=== PATIENT | male | born 1955 | race Two or more races ===

== ENCOUNTER 2020-10-05 08:06 | Outpatient (REF) | payer MEDICARE, SELFPAY ==
[2020-10-05 09:28] LABS: MANUAL DIFF FLAG NO
[2020-10-05 09:30] LABS: Basophils Percent Auto 0.5 % (0-2); Eosinophils Absolute Auto 0.2 X10*3/uL (0.0-0.4); Eosinophils Percent Auto 2.8 % (0-4); Hemoglobin 15.6 g/dl (14.0-18.0); Imm Gran Abs Auto 0.01 X10*3/uL (0.00-0.03); Imm Gran Pct Auto 0.2 % (0.0-0.4); Lymphocytes Absolute Auto 1.9 X10*3/uL (1.2-4.9); Lymphocytes Percent Auto 29.6 % (20-40); Mean Corpuscular HGB Conc 32.5 g/dl (31.0-36.0); Mean Corpuscular Hemoglobin 26.5 pg (27.0-33.0); Mean Corpuscular Volume 81.6 fL (80-98); Mean Platelet Volume 9.7 fL (9.4-12.4); Monocytes Absolute Auto 0.5 X10*3/uL (0.1-1.2); Monocytes Percent Auto 6.9 % (2-11); Neutrophils Absolute Auto 3.9 X10*3/uL (2.0-8.3); Platelet Count 194 X10*3/uL (160-400); Red Blood Count 5.88 X10*6/uL (4.60-5.80); Red Cell Distribution Width 13.4 % (11.0-16.0); White Blood Count 6.5 X10*3/uL (4.8-10.8)
[2020-10-05 09:47] LABS: Glucose Urine UA NEG (NEG); Leukocyte Esterase Urine NEG (NEG); Nitrite Urine NEG (NEG); PH 6.5 (5.0-8.0); Specific Gravity - Urine <= 1.005 (1.005-1.025); Urine Blood NEG (NEG); Urine Ketones NEG (NEG); Urine Protein 1+ MG/DL (NEG-TRACE)
[2020-10-05 09:54] LABS: RBC Urine 0 /HPF (0); WBC Urine 0 /HPF (0-4)
[2020-10-05 09:57] LABS: Alanine Aminotransferase 30 U/L (0-40); Albumin Level 4.2 g/dL (3.5-5.0); Alkaline Phosphatase 49 U/L (39-117); Anion Gap 11 (12-20); Aspartate Amino Transferase 24 U/L (5-37); Bilirubin Total 1.2 mg/dL (0.0-1.0); Blood Urea Nitrogen 18 mg/dL (9-16); Calcium 8.9 mg/dL (8.4-10.2); Carbon Dioxide 29 mmol/L (22-29); Chloride 104 mmol/L (96-108); Cholesterol 143 mg/dL; Estimated Glomerular Filt Rate 53; Glucose Fasting 103 mg/dL (60-99); HDL Cholesterol 45 mg/dL; LDL Cholesterol Calculated 79 mg/dl; Potassium 4.8 mmol/l (3.3-5.1); Sodium 139 mmol/L (135-145); Total Protein 6.8 g/dL (6.5-8.0); Triglycerides 99 mg/dL
[2020-10-05 09:59] LABS: Appearance Urine CLEAR; Color Urine YELLOW
[2020-10-05 10:13] LABS: Uric Acid 7.8 mg/dL (3.4-7.0)
[2020-10-05 10:18] LABS: TSH reflex Free T4 2.36 mIU/mL (0.32-4.0)
[2020-10-05 10:58] LABS: Creatinine Urine 27.08 mg/dL; Microalbum/Creatinine Ratio Ur 1111.5 ug/mg cr
== END 2020-10-05 08:07 | disposition home or self-care (01) ==
LOC: HO.LAB 08:06
PROVIDERS: PCP Internal Medicine; Visit Provider Internal Medicine
DX: I12.9 Hypertensive chronic kidney disease with stage 1 through stage 4 chronic kidney disease, or unspecified chronic kidney disease (principal); E11.22 Type 2 diabetes mellitus with diabetic chronic kidney disease; N18.2 Chronic kidney disease, stage 2 (mild); E78.00 Pure hypercholesterolemia, unspecified; M10.9 Gout, unspecified; R80.9 Proteinuria, unspecified
CPT/HCPCS: 36415; 80053; 80061; 81001; 82043; 84443; 84550; 85025

== ENCOUNTER 2021-01-03 08:14 | Outpatient (REF) | payer MEDICARE, SELFPAY ==
[2021-01-03 09:14] LABS: MANUAL DIFF FLAG NO
[2021-01-03 09:21] LABS: Basophils Percent Auto 0.6 % (0-2); Eosinophils Absolute Auto 0.2 X10*3/uL (0.0-0.4); Eosinophils Percent Auto 2.6 % (0-4); Hematocrit 51.2 % (42-52); Hemoglobin 16.4 g/dl (14.0-18.0); Imm Gran Abs Auto 0.01 X10*3/uL (0.00-0.03); Imm Gran Pct Auto 0.2 % (0.0-0.4); Lymphocytes Percent Auto 30.4 % (20-40); Mean Corpuscular Hemoglobin 26.2 pg (27.0-33.0); Mean Corpuscular Volume 81.8 fL (80-98); Mean Platelet Volume 9.8 fL (9.4-12.4); Monocytes Absolute Auto 0.4 X10*3/uL (0.1-1.2); Monocytes Percent Auto 5.3 % (2-11); Neutrophils Percent Auto 60.9 % (45-73); Platelet Count 210 X10*3/uL (160-400); Red Blood Count 6.26 X10*6/uL (4.60-5.80); Red Cell Distribution Width 13.2 % (11.0-16.0); White Blood Count 6.6 X10*3/uL (4.8-10.8)
[2021-01-03 09:36] LABS: Glucose Urine UA NEG (NEG); Leukocyte Esterase Urine NEG (NEG); Nitrite Urine NEG (NEG); Specific Gravity - Urine <= 1.005 (1.005-1.025); Urine Blood NEG (NEG); Urine Ketones NEG (NEG); Urine Protein 2+ MG/DL (NEG-TRACE)
[2021-01-03 09:39] LABS: Appearance Urine CLEAR; Color Urine STRAW
[2021-01-03 09:52] LABS: RBC Urine 0 /HPF (0); WBC Urine 0 /HPF (0-4)
[2021-01-03 09:57] LABS: Alanine Aminotransferase 31 U/L (0-40); Albumin Level 4.3 g/dL (3.5-5.0); Alkaline Phosphatase 58 U/L (39-117); Anion Gap 13 (12-20); Aspartate Amino Transferase 24 U/L (5-37); Bilirubin Total 0.9 mg/dL (0.0-1.0); Blood Urea Nitrogen 26 mg/dL (9-16); Calcium 9.4 mg/dL (8.4-10.2); Carbon Dioxide 28 mmol/L (22-29); Chloride 102 mmol/L (96-108); Cholesterol 168 mg/dL; Estimated Glomerular Filt Rate 44; Glucose Fasting 132 mg/dL (60-99); HDL Cholesterol 47 mg/dL; LDL Cholesterol Calculated 96 mg/dl; Potassium 4.8 mmol/L (3.3-5.1); Sodium 138 mmol/L (135-145); Total Protein 7.1 g/dL (6.5-8.0); Triglycerides 126 mg/dL; Uric Acid 5.8 mg/dL (3.4-7.0)
[2021-01-03 10:19] LABS: TSH reflex Free T4 2.15 uIU/mL (0.32-4.0); Vitamin D 25-OH Total 35.1 ng/mL (>30)
[2021-01-03 10:29] LABS: Creatinine Urine 38.66 mg/dL
[2021-01-03 10:44] LABS: Estimated Average Glucose 137 mg/dL; Hemoglobin A1c % 6.4 %
[2021-01-03 10:58] LABS: Microalbum/Creatinine Ratio Ur 1223.4 ug/mg cr
== END 2021-01-03 08:15 | disposition home or self-care (01) ==
LOC: HO.LAB 08:14
PROVIDERS: PCP Internal Medicine; Visit Provider Internal Medicine
DX: E11.22 Type 2 diabetes mellitus with diabetic chronic kidney disease (principal); I12.9 Hypertensive chronic kidney disease with stage 1 through stage 4 chronic kidney disease, or unspecified chronic kidney disease; N18.2 Chronic kidney disease, stage 2 (mild); R80.9 Proteinuria, unspecified; E78.00 Pure hypercholesterolemia, unspecified; M10.9 Gout, unspecified; E55.9 Vitamin D deficiency, unspecified
CPT/HCPCS: 36415; 80053; 80061; 81001; 82043; 82306; 83036; 84443; 84550; 85025

== ENCOUNTER 2021-02-14 07:58 | Outpatient (REF) | payer MEDICARE, SELFPAY ==
[2021-02-14 09:03] LABS: Alanine Aminotransferase 36 U/L (0-40); Albumin Level 4.2 g/dL (3.5-5.0); Alkaline Phosphatase 54 U/L (39-117); Anion Gap 14 (12-20); Aspartate Amino Transferase 29 U/L (5-37); Bilirubin Total 0.7 mg/dL (0.0-1.0); Blood Urea Nitrogen 29 mg/dL (9-16); Calcium 9.5 mg/dL (8.4-10.2); Carbon Dioxide 27 mmol/L (22-29); Chloride 100 mmol/L (96-108); Estimated Glomerular Filt Rate 40; Glucose Random 161 mg/dL (60-115); Potassium 4.4 mmol/L (3.3-5.1); Sodium 137 mmol/L (135-145); Total Protein 7.2 g/dL (6.5-8.0)
[2021-02-14 09:18] LABS: Glucose Urine UA NEG (NEG); Leukocyte Esterase Urine NEG (NEG); Nitrite Urine NEG (NEG); PH 6.5 (5.0-8.0); Specific Gravity - Urine <= 1.005 (1.005-1.025); Urine Blood NEG (NEG); Urine Ketones NEG (NEG); Urine Protein 1+ MG/DL (NEG-TRACE)
[2021-02-14 09:32] LABS: Appearance Urine CLEAR; Color Urine STRAW
[2021-02-14 11:01] LABS: RBC Urine 0 /HPF (0); WBC Urine 0 /HPF (0-4)
== END 2021-02-14 07:59 | disposition home or self-care (01) ==
LOC: HO.LAB 07:58
PROVIDERS: PCP Internal Medicine; Visit Provider Internal Medicine
DX: I12.9 Hypertensive chronic kidney disease with stage 1 through stage 4 chronic kidney disease, or unspecified chronic kidney disease (principal); E11.22 Type 2 diabetes mellitus with diabetic chronic kidney disease; N18.32 Chronic kidney disease, stage 3b; R80.9 Proteinuria, unspecified
CPT/HCPCS: 36415; 80053; 81001; 81003

== ENCOUNTER 2021-04-05 07:08 | Outpatient (REF) | payer MEDICARE, SELFPAY ==
[2021-04-05 08:10] LABS: MANUAL DIFF FLAG NO
[2021-04-05 08:19] LABS: Basophils Percent Auto 0.5 % (0-2); Eosinophils Absolute Auto 0.2 X10*3/uL (0.0-0.4); Eosinophils Percent Auto 3.4 % (0-4); Hematocrit 50.2 % (42-52); Imm Gran Abs Auto 0.01 X10*3/uL (0.00-0.03); Imm Gran Pct Auto 0.2 % (0.0-0.4); Lymphocytes Absolute Auto 1.7 X10*3/uL (1.2-4.9); Mean Corpuscular HGB Conc 31.9 g/dl (31.0-36.0); Mean Corpuscular Hemoglobin 26.1 pg (27.0-33.0); Mean Platelet Volume 9.8 fL (9.4-12.4); Monocytes Absolute Auto 0.4 X10*3/uL (0.1-1.2); Monocytes Percent Auto 5.8 % (2-11); Neutrophils Absolute Auto 3.9 X10*3/uL (2.0-8.3); Neutrophils Percent Auto 62.1 % (45-73); Platelet Count 199 X10*3/uL (160-400); Red Blood Count 6.12 X10*6/uL (4.60-5.80); Red Cell Distribution Width 13.9 % (11.0-16.0); White Blood Count 6.2 X10*3/uL (4.8-10.8)
[2021-04-05 08:24] LABS: Glucose Urine UA NEG (NEG); Leukocyte Esterase Urine NEG (NEG); Nitrite Urine NEG (NEG); Specific Gravity - Urine <= 1.005 (1.005-1.025); Urine Blood NEG (NEG); Urine Ketones NEG (NEG); Urine Protein 2+ MG/DL (NEG-TRACE)
[2021-04-05 08:25] LABS: Appearance Urine CLEAR; Color Urine YELLOW
[2021-04-05 08:26] LABS: Estimated Average Glucose 140 mg/dL; Hemoglobin A1c % 6.5 %
[2021-04-05 08:36] LABS: Mucus Urine TRACE /LPF; RBC Urine 0 /HPF (0); WBC Urine 0-2 /HPF (0-4)
[2021-04-05 08:38] LABS: Alanine Aminotransferase 34 U/L (0-40); Albumin Level 4.1 g/dL (3.5-5.0); Alkaline Phosphatase 54 U/L (39-117); Anion Gap 12 (12-20); Aspartate Amino Transferase 28 U/L (5-37); Bilirubin Total 0.6 mg/dL (0.0-1.0); Blood Urea Nitrogen 23 mg/dL (9-16); Calcium 9.4 mg/dL (8.4-10.2); Carbon Dioxide 28 mmol/L (22-29); Chloride 103 mmol/L (96-108); Cholesterol 142 mg/dL; Estimated Glomerular Filt Rate 46; Glucose Fasting 111 mg/dL (60-99); HDL Cholesterol 48 mg/dL; LDL Cholesterol Calculated 66 mg/dl; Potassium 4.8 mmol/L (3.3-5.1); Sodium 138 mmol/L (135-145); Total Protein 6.8 g/dL (6.5-8.0); Triglycerides 143 mg/dL
[2021-04-05 08:47] LABS: TSH reflex Free T4 2.29 uIU/mL (0.32-4.0)
[2021-04-05 09:22] LABS: Creatinine Urine 65.86 mg/dL
[2021-04-05 09:38] LABS: Microalbum/Creatinine Ratio Ur 833.5 ug/mg cr
== END 2021-04-05 07:09 | disposition home or self-care (01) ==
LOC: HO.LAB 07:08
PROVIDERS: PCP Internal Medicine; Visit Provider Internal Medicine
DX: E78.00 Pure hypercholesterolemia, unspecified (principal); M10.00 Idiopathic gout, unspecified site; E11.22 Type 2 diabetes mellitus with diabetic chronic kidney disease; I12.9 Hypertensive chronic kidney disease with stage 1 through stage 4 chronic kidney disease, or unspecified chronic kidney disease; N18.32 Chronic kidney disease, stage 3b; R80.9 Proteinuria, unspecified
CPT/HCPCS: 36415; 80053; 80061; 81001; 81003; 82043; 83036; 84443; 85025

== ENCOUNTER 2021-07-15 08:34 | Outpatient (REF) | payer MEDICARE, SELFPAY ==
[2021-07-15 09:10] LABS: Appearance Urine CLEAR; Color Urine STRAW; Glucose Urine UA NEG (NEG); Leukocyte Esterase Urine NEG (NEG); Nitrite Urine NEG (NEG); PH 6.5 (5.0-8.0); Specific Gravity - Urine <= 1.005 (1.005-1.025); Urine Blood NEG (NEG); Urine Ketones NEG (NEG); Urine Protein TRACE MG/DL (NEG-TRACE)
[2021-07-15 09:27] LABS: Estimated Average Glucose 137 mg/dL; Hemoglobin A1c % 6.4 %
[2021-07-15 09:49] LABS: Uric Acid 6.6 mg/dL (3.4-7.0)
== END 2021-07-15 08:35 | disposition home or self-care (01) ==
LOC: HO.LAB 08:34
PROVIDERS: PCP Internal Medicine; Visit Provider Internal Medicine
DX: I12.9 Hypertensive chronic kidney disease with stage 1 through stage 4 chronic kidney disease, or unspecified chronic kidney disease (principal); N18.32 Chronic kidney disease, stage 3b; E11.22 Type 2 diabetes mellitus with diabetic chronic kidney disease; R80.9 Proteinuria, unspecified; M10.9 Gout, unspecified
CPT/HCPCS: 36415; 81003; 83036; 84550

== ENCOUNTER 2021-10-14 08:25 | Outpatient (REF) | payer MEDICARE, SELFPAY ==
[2021-10-14 08:39] LABS: MANUAL DIFF FLAG NO
[2021-10-14 08:49] LABS: Basophils Percent Auto 0.6 % (0-2); Eosinophils Absolute Auto 0.2 X10*3/uL (0.0-0.4); Eosinophils Percent Auto 2.8 % (0-4); Hematocrit 48.7 % (42.0-52.0); Hemoglobin 16.1 g/dl (14.0-18.0); Imm Gran Abs Auto 0.02 X10*3/uL (0.00-0.03); Imm Gran Pct Auto 0.3 % (0.0-0.4); Lymphocytes Absolute Auto 2.1 X10*3/uL (1.2-4.9); Mean Corpuscular HGB Conc 33.1 g/dl (31.0-36.0); Mean Corpuscular Hemoglobin 27.2 pg (27.0-33.0); Mean Corpuscular Volume 82.1 fL (80.0-98.0); Mean Platelet Volume 10.1 fL (9.4-12.4); Monocytes Absolute Auto 0.4 X10*3/uL (0.1-1.2); Monocytes Percent Auto 6.5 % (2-11); Neutrophils Absolute Auto 3.7 x10*3/uL (2.0-8.3); Neutrophils Percent Auto 57.8 % (45-73); Platelet Count 212 X10*3/uL (160-400); Red Blood Count 5.93 X10*6/uL (4.60-5.80); Red Cell Distribution Width 13.5 % (11.0-16.0); White Blood Count 6.4 X10*3/uL (4.8-10.8)
[2021-10-14 09:28] LABS: Alanine Aminotransferase 36 U/L (0-40); Albumin Level 4.3 g/dL (3.5-5.0); Alkaline Phosphatase 58 U/L (39-117); Anion Gap 11 (12-20); Aspartate Amino Transferase 32 U/L (5-37); Bilirubin Total 1.1 mg/dL (0.0-1.0); Blood Urea Nitrogen 22 mg/dL (9-16); Carbon Dioxide 28 mmol/L (22-29); Chloride 106 mmol/L (96-108); Cholesterol 144 mg/dL; Estimated Glomerular Filt Rate 45; Glucose Random 120 mg/dL (60-115); HDL Cholesterol 47 mg/dL; LDL Cholesterol Calculated 75 mg/dl; Potassium 5.2 mmol/L (3.3-5.1); Sodium 140 mmol/L (135-145); Total Protein 7.2 g/dL (6.5-8.0); Triglycerides 110 mg/dL
[2021-10-14 09:50] LABS: Vitamin D 25-OH Total 32.4 ng/mL (>30)
[2021-10-14 10:18] LABS: Appearance Urine CLEAR; Color Urine STRAW; Glucose Urine UA NEG (NEG); Leukocyte Esterase Urine NEG (NEG); Nitrite Urine NEG (NEG); Specific Gravity - Urine <= 1.005 (1.005-1.025); UACC Culture Trigger NO; Urine Blood NEG (NEG); Urine Ketones NEG (NEG); Urine Protein 1+ MG/DL (NEG-TRACE)
[2021-10-14 10:43] LABS: Creatinine Urine 35.09 mg/dL; Microalbum/Creatinine Ratio Ur 1125.6 ug/mg cr
[2021-10-14 11:08] LABS: RBC Urine 0 /HPF (0); Squamous Epithelial Cell Urine TRACE /LPF; WBC Urine 0 /HPF (0-4)
[2021-10-14 13:59] LABS: Estimated Average Glucose 143 mg/dL; Hemoglobin A1c % 6.6 %
== END 2021-10-14 08:26 | disposition home or self-care (01) ==
LOC: HO.LAB 08:25
PROVIDERS: PCP Internal Medicine; Visit Provider Nurse Practitioner Family
DX: E11.22 Type 2 diabetes mellitus with diabetic chronic kidney disease (principal); I12.9 Hypertensive chronic kidney disease with stage 1 through stage 4 chronic kidney disease, or unspecified chronic kidney disease; N18.2 Chronic kidney disease, stage 2 (mild); N18.32 Chronic kidney disease, stage 3b; R80.9 Proteinuria, unspecified; E78.00 Pure hypercholesterolemia, unspecified; E55.9 Vitamin D deficiency, unspecified
CPT/HCPCS: 36415; 80053; 80061; 81001; 82043; 82306; 83036; 85025

== ENCOUNTER 2022-01-25 07:59 | Outpatient (REF) | payer MEDICARE, SELFPAY ==
[2022-01-25 08:28] LABS: MANUAL DIFF FLAG NO
[2022-01-25 08:42] LABS: Basophils Percent Auto 0.6 % (0-2); Eosinophils Absolute Auto 0.2 X10*3/uL (0.0-0.4); Eosinophils Percent Auto 2.1 % (0-4); Hemoglobin 17.1 g/dl (14.0-18.0); Imm Gran Abs Auto 0.03 X10*3/uL (0.00-0.03); Imm Gran Pct Auto 0.4 % (0.0-0.4); Lymphocytes Percent Auto 27.3 % (20-40); Mean Corpuscular HGB Conc 32.3 g/dl (31.0-36.0); Mean Corpuscular Hemoglobin 26.7 pg (27.0-33.0); Mean Corpuscular Volume 82.8 fL (80.0-98.0); Mean Platelet Volume 9.9 fL (9.4-12.4); Monocytes Absolute Auto 0.5 X10*3/uL (0.1-1.2); Monocytes Percent Auto 6.9 % (2-11); Neutrophils Absolute Auto 4.5 x10*3/uL (2.0-8.3); Neutrophils Percent Auto 62.7 % (45-73); Platelet Count 203 X10*3/uL (160-400); Red Cell Distribution Width 13.6 % (11.0-16.0); White Blood Count 7.1 X10*3/uL (4.8-10.8)
[2022-01-25 08:49] LABS: Appearance Urine CLEAR; Color Urine STRAW; Glucose Urine UA NEG (NEG); Leukocyte Esterase Urine NEG (NEG); Nitrite Urine NEG (NEG); Specific Gravity - Urine <= 1.005 (1.005-1.025); UACC Culture Trigger NO; Urine Blood TRACE (NEG); Urine Ketones NEG (NEG); Urine Protein 2+ MG/DL (NEG-TRACE)
[2022-01-25 08:55] LABS: Estimated Average Glucose 146 mg/dL; Hemoglobin A1c % 6.7 %
[2022-01-25 09:08] LABS: RBC Urine 0-2 /HPF (0); WBC Urine 0 /HPF (0-4)
[2022-01-25 09:37] LABS: Alanine Aminotransferase 38 U/L (0-40); Albumin Level 4.2 g/dL (3.5-5.0); Alkaline Phosphatase 59 U/L (39-117); Anion Gap 13 (12-20); Aspartate Amino Transferase 31 U/L (5-37); Bilirubin Total 1.2 mg/dL (0.0-1.0); Blood Urea Nitrogen 18 mg/dL (9-16); Calcium 9.9 mg/dL (8.4-10.2); Carbon Dioxide 27 mmol/L (22-29); Chloride 101 mmol/L (96-108); Cholesterol 179 mg/dL; Estimated Glomerular Filt Rate 43; Glucose Fasting 149 mg/dL (60-99); HDL Cholesterol 50 mg/dL; LDL Cholesterol Calculated 94 mg/dl; Sodium 136 mmol/L (135-145); Total Protein 7.3 g/dL (6.5-8.0); Triglycerides 177 mg/dL
[2022-01-25 09:40] LABS: TSH reflex Free T4 3.07 uIU/mL (0.32-4.0)
[2022-01-25 09:51] LABS: Creatinine Urine 43.56 mg/dL; Microalbum/Creatinine Ratio Ur 1166.2 ug/mg cr
[2022-01-26 14:32] LABS: Vitamin D 25-OH Total 31.2 ng/mL (>30)
== END 2022-01-25 08:00 | disposition home or self-care (01) ==
LOC: HO.LAB 07:59
PROVIDERS: PCP Internal Medicine; Visit Provider Internal Medicine
DX: I12.9 Hypertensive chronic kidney disease with stage 1 through stage 4 chronic kidney disease, or unspecified chronic kidney disease (principal); N18.32 Chronic kidney disease, stage 3b; E11.22 Type 2 diabetes mellitus with diabetic chronic kidney disease; E78.00 Pure hypercholesterolemia, unspecified; E55.9 Vitamin D deficiency, unspecified
CPT/HCPCS: 36415; 80053; 80061; 81001; 82043; 82306; 83036; 84443; 85025

== ENCOUNTER 2022-04-12 07:11 | Outpatient (REF) | payer MEDICARE, SELFPAY ==
[2022-04-12 07:28] LABS: MANUAL DIFF FLAG NO
[2022-04-12 07:44] LABS: Basophils Percent Auto 0.6 % (0-2); Eosinophils Absolute Auto 0.1 X10*3/uL (0.0-0.4); Eosinophils Percent Auto 1.8 % (0-4); Hematocrit 52.1 % (42.0-52.0); Hemoglobin 16.7 g/dl (14.0-18.0); Imm Gran Abs Auto 0.01 X10*3/uL (0.00-0.03); Imm Gran Pct Auto 0.2 % (0.0-0.4); Lymphocytes Absolute Auto 2.1 X10*3/uL (1.2-4.9); Lymphocytes Percent Auto 31.8 % (20-40); Mean Corpuscular HGB Conc 32.1 g/dl (31.0-36.0); Mean Corpuscular Hemoglobin 26.5 pg (27.0-33.0); Mean Corpuscular Volume 82.6 fL (80.0-98.0); Mean Platelet Volume 9.8 fL (9.4-12.4); Monocytes Absolute Auto 0.5 X10*3/uL (0.1-1.2); Monocytes Percent Auto 6.8 % (2-11); Neutrophils Absolute Auto 3.9 x10*3/uL (2.0-8.3); Neutrophils Percent Auto 58.8 % (45-73); Platelet Count 188 X10*3/uL (160-400); Red Blood Count 6.31 X10*6/uL (4.60-5.80); White Blood Count 6.6 X10*3/uL (4.8-10.8)
[2022-04-12 07:56] LABS: Estimated Average Glucose 146 mg/dL; Hemoglobin A1c % 6.7 %
[2022-04-12 08:09] LABS: Alanine Aminotransferase 31 U/L (0-40); Albumin Level 4.3 g/dL (3.5-5.0); Alkaline Phosphatase 54 U/L (39-117); Anion Gap 13 (12-20); Aspartate Amino Transferase 27 U/L (5-37); Bilirubin Total 0.8 mg/dL (0.0-1.0); Blood Urea Nitrogen 20 mg/dL (9-16); Calcium 9.8 mg/dL (8.4-10.2); Carbon Dioxide 27 mmol/L (22-29); Chloride 104 mmol/L (96-108); Cholesterol 159 mg/dL; Estimated Glomerular Filt Rate 42; Glucose Fasting 121 mg/dL (60-99); HDL Cholesterol 51 mg/dL; LDL Cholesterol Calculated 91 mg/dl; Potassium 5.4 mmol/L (3.3-5.1); Sodium 139 mmol/L (135-145); Total Protein 7.3 g/dL (6.5-8.0); Triglycerides 86 mg/dL
[2022-04-12 08:10] LABS: Appearance Urine CLEAR; Color Urine YELLOW; Glucose Urine UA NEG (NEG); Leukocyte Esterase Urine NEG (NEG); Nitrite Urine NEG (NEG); Specific Gravity - Urine <= 1.005 (1.005-1.025); Urine Blood NEG (NEG); Urine Ketones NEG (NEG); Urine Protein TRACE MG/DL (NEG-TRACE)
[2022-04-12 08:32] LABS: TSH reflex Free T4 3.07 uIU/mL (0.32-4.0); Vitamin D 25-OH Total 32.8 ng/mL (>30)
== END 2022-04-12 07:12 | disposition home or self-care (01) ==
LOC: HO.LAB 07:11
PROVIDERS: PCP Internal Medicine; Visit Provider Internal Medicine
DX: E78.00 Pure hypercholesterolemia, unspecified (principal); E11.9 Type 2 diabetes mellitus without complications; E55.9 Vitamin D deficiency, unspecified; I10 Essential (primary) hypertension
CPT/HCPCS: 36415; 80053; 80061; 81003; 82306; 83036; 84443; 85025

== ENCOUNTER 2022-07-17 07:27 | Outpatient (REF) | payer MEDICARE, SELFPAY ==
[2022-07-17 07:41] LABS: MANUAL DIFF FLAG NO
[2022-07-17 08:21] LABS: Basophils Percent Auto 0.5 % (0-2); Eosinophils Absolute Auto 0.1 X10*3/uL (0.0-0.4); Eosinophils Percent Auto 1.7 % (0-4); Hematocrit 51.2 % (42.0-52.0); Hemoglobin 16.6 g/dl (14.0-18.0); Imm Gran Abs Auto 0.02 X10*3/uL (0.00-0.03); Imm Gran Pct Auto 0.3 % (0.0-0.4); Lymphocytes Absolute Auto 1.7 X10*3/uL (1.2-4.9); Lymphocytes Percent Auto 27.5 % (20-40); Mean Corpuscular HGB Conc 32.4 g/dl (31.0-36.0); Mean Corpuscular Hemoglobin 26.4 pg (27.0-33.0); Mean Corpuscular Volume 81.5 fL (80.0-98.0); Monocytes Absolute Auto 0.4 X10*3/uL (0.1-1.2); Monocytes Percent Auto 5.7 % (2-11); Neutrophils Absolute Auto 4.1 x10*3/uL (2.0-8.3); Neutrophils Percent Auto 64.3 % (45-73); Platelet Count 182 X10*3/uL (160-400); Red Blood Count 6.28 X10*6/uL (4.60-5.80); Red Cell Distribution Width 13.6 % (11.0-16.0); White Blood Count 6.3 X10*3/uL (4.8-10.8)
[2022-07-17 08:23] LABS: Appearance Urine Clear; Color Urine Yellow; Glucose Urine UA Negative (Negative); Leukocyte Esterase Urine Negative (Negative); Nitrite Urine Negative (Negative); PH 5.5 (5.0-9.0); Specific Gravity - Urine <= 1.005 (1.005-1.025); Urine Blood Negative (Negative); Urine Ketones Negative (Negative); Urine Protein 30 (1+) mg/dL (Neg-Trace)
[2022-07-17 08:28] LABS: Bacteria Urine None Seen (None Seen); Hyaline Casts Urine 0-2 /LPF (0-2); RBC Urine 0-2 /HPF (0-2); Squamous Epithelial Cell Urine 0-2 /HPF (0-2); WBC Urine 0-5 /HPF (0-5)
[2022-07-17 08:36] LABS: Estimated Average Glucose 131 mg/dL; Hemoglobin A1c % 6.2 %
[2022-07-17 08:39] LABS: Alanine Aminotransferase 30 U/L (0-40); Alkaline Phosphatase 54 U/L (39-117); Anion Gap 14 (12-20); Aspartate Amino Transferase 26 U/L (5-37); Bilirubin Total 1.2 mg/dL (0.0-1.0); Blood Urea Nitrogen 24 mg/dL (9-16); Calcium 9.4 mg/dL (8.4-10.2); Carbon Dioxide 26 mmol/L (22-29); Chloride 104 mmol/L (96-108); Cholesterol 156 mg/dL; Estimated Glomerular Filt Rate 49; Glucose Fasting 129 mg/dL (60-99); HDL Cholesterol 50 mg/dL; LDL Cholesterol Calculated 82 mg/dl; Potassium 4.5 mmol/L (3.3-5.1); Sodium 139 mmol/L (135-145); Total Protein 6.8 g/dL (6.5-8.0); Triglycerides 120 mg/dL; Uric Acid 5.9 mg/dL (3.4-7.0)
[2022-07-17 09:04] LABS: TSH reflex Free T4 2.24 uIU/mL (0.32-4.0)
[2022-07-17 09:14] LABS: Creatinine Urine 24.34 mg/dL
[2022-07-17 09:39] LABS: Vitamin D 25-OH Total 35.2 ng/mL (>30)
== END 2022-07-17 07:28 | disposition home or self-care (01) ==
LOC: HO.LAB 07:27
PROVIDERS: PCP Internal Medicine; Visit Provider Internal Medicine
DX: M10.9 Gout, unspecified (principal); E11.9 Type 2 diabetes mellitus without complications; E55.9 Vitamin D deficiency, unspecified; E78.00 Pure hypercholesterolemia, unspecified; I10 Essential (primary) hypertension
CPT/HCPCS: 36415; 80053; 80061; 81001; 82043; 82306; 83036; 84443; 84550; 85025

== ENCOUNTER 2022-10-24 07:33 | Outpatient (REF) | payer MEDICARE, SELFPAY ==
[2022-10-24 07:50] LABS: MANUAL DIFF FLAG NO
[2022-10-24 08:16] LABS: Basophils Percent Auto 0.5 % (0-2); Eosinophils Absolute Auto 0.1 X10*3/uL (0.0-0.4); Eosinophils Percent Auto 1.3 % (0-4); Hematocrit 51.2 % (42.0-52.0); Hemoglobin 16.6 g/dl (14.0-18.0); Imm Gran Abs Auto 0.03 X10*3/uL (0.00-0.03); Imm Gran Pct Auto 0.5 % (0.0-0.4); Lymphocytes Absolute Auto 1.4 X10*3/uL (1.2-4.9); Lymphocytes Percent Auto 22.5 % (20-40); Mean Corpuscular HGB Conc 32.4 g/dl (31.0-36.0); Mean Corpuscular Hemoglobin 26.9 pg (27.0-33.0); Mean Platelet Volume 9.9 fL (9.4-12.4); Monocytes Absolute Auto 0.4 X10*3/uL (0.1-1.2); Monocytes Percent Auto 5.8 % (2-11); Neutrophils Absolute Auto 4.2 x10*3/uL (2.0-8.3); Neutrophils Percent Auto 69.4 % (45-73); Platelet Count 181 X10*3/uL (160-400); Red Blood Count 6.17 X10*6/uL (4.60-5.80); Red Cell Distribution Width 13.5 % (11.0-16.0)
[2022-10-24 08:26] LABS: Appearance Urine Clear; Color Urine Yellow; Glucose Urine UA Negative (Negative); Leukocyte Esterase Urine Negative (Negative); Nitrite Urine Negative (Negative); Specific Gravity - Urine <= 1.005 (1.005-1.025); UMIC TRIGGER UACC YES; Urine Blood Negative (Negative); Urine Ketones Negative (Negative); Urine Protein 100 (2+) mg/dL (Neg-Trace)
[2022-10-24 08:26] LABS: Estimated Average Glucose 134 mg/dL; Hemoglobin A1c % 6.3 %
[2022-10-24 08:32] LABS: Bacteria Urine None Seen (None Seen); Hyaline Casts Urine 0-2 /LPF (0-2); RBC Urine 0-2 /HPF (0-2); Squamous Epithelial Cell Urine 0-2 /HPF (0-2); WBC Urine 0-5 /HPF (0-5)
[2022-10-24 08:48] LABS: Alanine Aminotransferase 34 U/L (0-40); Albumin Level 4.2 g/dL (3.5-5.0); Alkaline Phosphatase 55 U/L (39-117); Anion Gap 12 (12-20); Aspartate Amino Transferase 28 U/L (5-37); Blood Urea Nitrogen 20 mg/dL (9-16); Calcium 9.6 mg/dL (8.4-10.2); Carbon Dioxide 27 mmol/L (22-29); Chloride 102 mmol/L (96-108); Cholesterol 162 mg/dL; Estimated Glomerular Filt Rate 43; Glucose Fasting 146 mg/dL (60-99); HDL Cholesterol 52 mg/dL; LDL Cholesterol Calculated 92 mg/dl; Potassium 4.4 mmol/L (3.3-5.1); Sodium 137 mmol/L (135-145); Total Protein 6.9 g/dL (6.5-8.0); Triglycerides 93 mg/dL; Uric Acid 5.7 mg/dL (3.4-7.0)
[2022-10-24 08:56] LABS: Creatinine Urine 41.44 mg/dL
[2022-10-24 09:09] LABS: TSH reflex Free T4 3.06 uIU/mL (0.32-4.0); Vitamin D 25-OH Total 30.5 ng/mL (>30)
[2022-10-24 09:10] LABS: Microalbum/Creatinine Ratio Ur 1467.1 ug/mg cr
== END 2022-10-24 07:34 | disposition home or self-care (01) ==
LOC: HO.LAB 07:33
PROVIDERS: PCP Internal Medicine; Visit Provider Internal Medicine
DX: I10 Essential (primary) hypertension (principal); E55.9 Vitamin D deficiency, unspecified; M10.9 Gout, unspecified; E11.9 Type 2 diabetes mellitus without complications; E78.00 Pure hypercholesterolemia, unspecified
CPT/HCPCS: 36415; 80053; 80061; 81001; 82043; 82306; 83036; 84443; 84550; 85025

== ENCOUNTER 2023-01-26 07:16 | Outpatient (REF) | payer MEDICARE, SELFPAY ==
[2023-01-26 07:36] LABS: MANUAL DIFF FLAG NO
[2023-01-26 07:56] LABS: Basophils Percent Auto 0.5 % (0-2); Eosinophils Absolute Auto 0.1 X10*3/uL (0.0-0.4); Eosinophils Percent Auto 2.3 % (0-4); Hematocrit 48.3 % (42.0-52.0); Hemoglobin 15.8 g/dl (14.0-18.0); Imm Gran Abs Auto 0.02 X10*3/uL (0.00-0.03); Imm Gran Pct Auto 0.3 % (0.0-0.4); Lymphocytes Absolute Auto 1.1 X10*3/uL (1.2-4.9); Lymphocytes Percent Auto 17.6 % (20-40); Mean Corpuscular HGB Conc 32.7 g/dl (31.0-36.0); Mean Corpuscular Volume 82.6 fL (80.0-98.0); Mean Platelet Volume 9.6 fL (9.4-12.4); Monocytes Absolute Auto 0.4 X10*3/uL (0.1-1.2); Neutrophils Absolute Auto 4.5 x10*3/uL (2.0-8.3); Neutrophils Percent Auto 73.3 % (45-73); Platelet Count 171 X10*3/uL (160-400); Red Blood Count 5.85 X10*6/uL (4.60-5.80); Red Cell Distribution Width 13.9 % (11.0-16.0); White Blood Count 6.1 X10*3/uL (4.8-10.8)
[2023-01-26 07:59] LABS: Appearance Urine Clear; Color Urine Yellow; Glucose Urine UA >=1000 mg/dL (Negative); Leukocyte Esterase Urine Negative (Negative); Nitrite Urine Negative (Negative); PH 5.5 (5.0-9.0); UMIC TRIGGER UACC YES; Urine Blood Negative (Negative); Urine Ketones Negative (Negative); Urine Protein 100 (2+) mg/dL (Neg-Trace)
[2023-01-26 08:04] LABS: Bacteria Urine None Seen (None Seen); RBC Urine 0-2 /HPF (0-2); Squamous Epithelial Cell Urine 0-2 /HPF (0-2); WBC Urine 0-5 /HPF (0-5)
[2023-01-26 08:11] LABS: Estimated Average Glucose 134 mg/dL; Hemoglobin A1c % 6.3 %
[2023-01-26 08:22] LABS: Creatinine Urine 99.51 mg/dL; Microalbum/Creatinine Ratio Ur 304.4 ug/mg cr
[2023-01-26 08:30] LABS: Alanine Aminotransferase 30 U/L (0-40); Alkaline Phosphatase 51 U/L (39-117); Anion Gap 12 (12-20); Aspartate Amino Transferase 23 U/L (5-37); Bilirubin Total 0.8 mg/dL (0.0-1.0); Blood Urea Nitrogen 27 mg/dL (9-16); Calcium 9.2 mg/dL (8.4-10.2); Carbon Dioxide 25 mmol/L (22-29); Chloride 107 mmol/L (96-108); Cholesterol 143 mg/dL; Estimated Glomerular Filt Rate 42; Glucose Fasting 155 mg/dL (60-99); HDL Cholesterol 45 mg/dL; LDL Cholesterol Calculated 83 mg/dl; Potassium 4.6 mmol/L (3.3-5.1); Sodium 139 mmol/L (135-145); Total Protein 6.4 g/dL (6.5-8.0); Triglycerides 78 mg/dL
[2023-01-26 08:47] LABS: TSH reflex Free T4 2.97 uIU/mL (0.32-4.0); Vitamin D 25-OH Total 34.3 ng/mL (>30)
== END 2023-01-26 07:17 | disposition home or self-care (01) ==
LOC: HO.LAB 07:16
PROVIDERS: PCP Internal Medicine; Visit Provider Internal Medicine
DX: E11.9 Type 2 diabetes mellitus without complications (principal); E78.00 Pure hypercholesterolemia, unspecified; E55.9 Vitamin D deficiency, unspecified; I10 Essential (primary) hypertension
CPT/HCPCS: 36415; 80053; 80061; 81001; 81003; 82043; 82306; 83036; 84443; 85025

== ENCOUNTER 2023-06-08 07:35 | Outpatient (REF) | payer MEDICARE, SELFPAY ==
[2023-06-08 08:08] LABS: MANUAL DIFF FLAG NO
[2023-06-08 08:18] LABS: Basophils Percent Auto 0.5 % (0-2); Eosinophils Absolute Auto 0.1 X10*3/uL (0.0-0.4); Eosinophils Percent Auto 1.9 % (0-4); Hematocrit 45.6 % (42.0-52.0); Hemoglobin 14.8 g/dl (14.0-18.0); Imm Gran Abs Auto 0.02 X10*3/uL (0.00-0.03); Imm Gran Pct Auto 0.3 % (0.0-0.4); Lymphocytes Absolute Auto 1.2 X10*3/uL (1.2-4.9); Lymphocytes Percent Auto 18.2 % (20-40); Mean Corpuscular HGB Conc 32.5 g/dl (31.0-36.0); Mean Corpuscular Hemoglobin 26.9 pg (27.0-33.0); Mean Corpuscular Volume 82.8 fL (80.0-98.0); Mean Platelet Volume 9.8 fL (9.4-12.4); Monocytes Absolute Auto 0.5 X10*3/uL (0.1-1.2); Monocytes Percent Auto 8.4 % (2-11); Neutrophils Absolute Auto 4.5 x10*3/uL (2.0-8.3); Neutrophils Percent Auto 70.7 % (45-73); Platelet Count 176 X10*3/uL (160-400); Red Blood Count 5.51 X10*6/uL (4.60-5.80); Red Cell Distribution Width 14.1 % (11.0-16.0); White Blood Count 6.3 X10*3/uL (4.8-10.8)
[2023-06-08 08:33] LABS: Estimated Average Glucose 126 mg/dL
[2023-06-08 08:57] LABS: Alanine Aminotransferase 26 U/L (0-40); Albumin Level 3.9 g/dL (3.5-5.0); Alkaline Phosphatase 55 U/L (39-117); Anion Gap 14 (12-20); Aspartate Amino Transferase 26 U/L (5-37); Bilirubin Total 1.2 mg/dL (0.0-1.0); Blood Urea Nitrogen 25 mg/dL (9-16); Calcium 9.5 mg/dL (8.4-10.2); Carbon Dioxide 22 mmol/L (22-29); Chloride 108 mmol/L (96-108); Cholesterol 146 mg/dL; Estimated Glomerular Filt Rate 45; Glucose Fasting 117 mg/dL (60-99); HDL Cholesterol 47 mg/dL; LDL Cholesterol Calculated 83 mg/dl; Sodium 140 mmol/L (135-145); Total Protein 6.6 g/dL (6.5-8.0); Triglycerides 83 mg/dL
[2023-06-08 09:13] LABS: TSH reflex Free T4 1.62 uIU/mL (0.32-4.0); Vitamin D 25-OH Total 39.1 ng/mL (>30)
[2023-06-08 09:50] LABS: Appearance Urine Clear; Color Urine Yellow; Glucose Urine UA >=1000 mg/dL (Negative); Leukocyte Esterase Urine Negative (Negative); Nitrite Urine Negative (Negative); PH 5.5 (5.0-9.0); Specific Gravity - Urine 1.025 (1.005-1.025); UMIC TRIGGER UACC YES; Urine Blood Negative (Negative); Urine Ketones Negative (Negative); Urine Protein 100 (2+) mg/dL (Neg-Trace)
[2023-06-08 09:57] LABS: Bacteria Urine None Seen (None Seen); Hyaline Casts Urine 0-2 /LPF (0-2); RBC Urine 0-2 /HPF (0-2); Squamous Epithelial Cell Urine 0-2 /HPF (0-2); WBC Urine 0-5 /HPF (0-5)
[2023-06-08 22:31] LABS: Microalbum/Creatinine Ratio Ur 266.5 ug/mg cr
== END 2023-06-08 07:36 | disposition home or self-care (01) ==
LOC: HO.LAB 07:35
PROVIDERS: PCP Internal Medicine; Visit Provider Internal Medicine
DX: I10 Essential (primary) hypertension (principal); E11.9 Type 2 diabetes mellitus without complications; M10.9 Gout, unspecified; E55.9 Vitamin D deficiency, unspecified; E78.00 Pure hypercholesterolemia, unspecified
CPT/HCPCS: 36415; 80053; 80061; 81001; 82043; 82306; 83036; 84443; 84550; 85025

== ENCOUNTER 2023-06-15 09:02 | Outpatient (AMB) | payer MEDICARE, SELFPAY ==
[2023-06-15 09:05] VITALS: BP 130/72; PULSE 74; O2SAT 97; BMI 23.3
--- NOTE | 2023-06-15 09:05 | MHC.PC.OV ---
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 Accompanied by: Self / Same As Patient Allergies amlodipine Adverse Reaction (Intermediate, Verified 06/15/23 09:23) edema Medication List - Last Reconciled 06/15/23 by Nikhil Knutson MD allopurinol 100 mg PO DAILY 90 days blood sugar diagnostic 1 strip miscellaneous DAILY 30 days cholecalciferol (vitamin D3) 25 mcg PO DAILY empagliflozin (Jardiance) 25 mg PO QAM glipizide ER 5 mg PO DAILY hydralazine 50 mg PO TID 90 days labetalol 200 mg PO BID lisinopril 40 mg PO DAILY 90 days metformin ER 500 mg PO BEDTIME omega-3 fatty acids (Fish Oil Concentrate) 1,000 mg PO DAILY pravastatin 40 mg PO DAILY Tobacco use date assessed: 06/15/23 Fall risk assessment: No Falls in past year Last assessed Fall Risk: 06/15/23 Dental Screening Dental Screen Date: 06/15/23 Did you have a dental visit in the last 12 months?: Yes Did you have a dental problem in the last 6 months where you did not have access to dental care?: No Was dental information given to patient?: Patient has dentist HPI HTN, CKD, DM, hyperlipidemia HPI Details Patient comes in today for his follow up visit States that he feels okay States that he went to [place] for a few weeks of vacation about 1 to 2 months ago and is concerned that his blood sugar has increased He denies any headaches or dizziness Denies any chest pains, no SOB No nausea/vomiting, no abdominal pain No change in bowel habits noted Had his follow up labs done last week - to discuss his results [facility] Medical History Benign essential hypertension Cervical disc herniation Chronic kidney disease (CKD), stage III (moderate) Gout Lumbar degenerative disc disease Proteinuria, unspecified Pure hypercholesterolemia Type 2 diabetes mellitus with diabetic chronic kidney disease Vitamin D deficiency Surgical History History of cervical discectomy History of extraction of renal calculus History of laminectomy Family History Father No problems noted. Mother No problems noted. Brother Diabetes Brother Heart problem Social History Household Members: Spouse Housing: House Alcohol intake: former Patient Tobacco Use Status: Former Tobacco user e-Cigarette/Vaping Use: Never Used Second Hand Smoke Exposure: No service: No Current occupational status: retired Cognitive needs: No Hearing needs: No Vision needs: No Questionnaire PHQ-9 Over the last 2 weeks, how often have you been bothered by any of the following problems? 1. Little interest or pleasure in doing things: not at all 2. Feeling down, depressed, or hopeless: not at all 3. Trouble falling or staying asleep, or sleeping too much: not at all 4. Feeling tired or having little energy: not at all 5. Poor appetite or overeating: not at all 6. Feeling bad about yourself - or that you are a failure or have let yourself or your family down: not at all 7. Trouble concentrating on things, such as reading the newspaper or watching television: not at all 8. Moving or speaking so slowly that other people could have noticed. Or the opposite - being so fidgety or restless that you have been moving around a lot more than usual: not at all 9. Thoughts that you would be better off or of hurting yourself in some way: not at all Total score: 0 Depression Screening Interpretation: Negative 29639 - PHQ-9 Billing: Yes Source: Developed by Drs. Tray Benoit, Frannie Tolentino, Jarett Santiago and colleagues, with an educational karlos from [employer]. Thrive Questionnaire Date Thrive assessed: 06/15/23 I am a: Patient What is your living situation today?: I have a steady place to live Within the past 12 months, did the food you bought not last and you didn't have the money to get more?: Never true Within the past 12 months, did you worry whether your food would run out before you got money to buy more?: Never true Do you have trouble paying for medicines?: No Do you have trouble getting transportation to medical appointments?: No Do you have trouble paying your heating and electricity bill?: No Do you have trouble taking care of your child, family member or friend?: No Do you have trouble with day-to-day activities such as bathing, preparing meals, shopping, managing finances, etc.?: No Are you currently unemployed and looking for a job?: No Are you interested in more education?: No Please select the resources that you would like help with: None Currently or been in a relationship where the following occur: no concerns reported AUDIT C Alcohol Use Questionnaire (AUDIT-C) 1. How often do you have a drink containing alcohol?: Never 3. How often do you have six or more drinks on one occasion?: Never Total Score: 0 Score Reviewed/Action Taken: Yes PB-7 AMB Questionnaire PB-7 Date PB - 7 assessed: 06/15/23 Feeling nervous, anxious, or on edge: 0 = Not at all Not being able to stop or control worryin = Not at all Worrying too much about different things: 0 = Not at all Trouble relaxin = Not at all Being so restless that it is hard to sit still: 0 = Not at all Becoming easily annoyed or irritable: 0 = Not at all Feeling afraid as if something awful might happen: 0 = Not at all Total PB-7 score (0-4 normal; 5-9 mild; 10-14 moderate; 15-21 severe): 0 Source: Developed by Drs. Tray Benoit, Frannie Tolentino, Jarett Santiago and colleagues, with an educational karlos from [employer]. Review of Systems Const Denies fatigue, Denies fever(s) and Denies headache(s) ENT Denies dysphagia, Denies dizziness, Denies otalgia, Denies headache(s), Reports neck pain (chronic) and Denies sore throat Card Denies chest pain, Denies palpitations and Denies dyspnea Resp Denies chest congestion, Denies cough and Denies dyspnea GI Denies abdominal pain, Denies constipation, Denies dysphagia, Denies heartburn, Denies diarrhea, Denies nausea and Denies vomiting Denies dysuria, Denies nocturia and Denies urinary frequency Musc Details: (+) recurrent pain in both feet Reports back pain (over the lower back - chronic) and Reports neck pain (chronic) Neuro Denies dizziness and Denies headache(s) Endo Denies fatigue and Denies palpitations Physical exam (Primary Care) Vital Signs: Last Vital Signs Pulse 74 06/15/23 09:05 BP 130/72 06/15/23 09:05 Pulse Ox 97 06/15/23 09:05 Oxygen Delivery Method Room Air 06/15/23 09:05 BMI result Body Mass Index 23.3 Tobacco/Smoking Status: Tobacco use Status Tobacco use date assessed 06/15/23 06/15/23 09:07 Patient Tobacco Use Status Former Tobacco user 06/15/23 09:07 e-Cigarette/Vaping Use Never Used 06/15/23 09:07 PHQ-9: PHQ-9 Score PHQ-9: Total score 0 06/15/23 09:07 Depression Screening Interpretation: Negative Thrive Assessment: Date of Thrive Assessment Date Thrive assessed 06/15/23 06/15/23 09:07 Currently or been in a relationship where the following occur: no concerns reported Const General: no acute distress and alert HENMT Ears: TM's normal bilaterally and EAC's normal Throat: Yes posterior oropharynx normal and Yes tonsils normal (no TP congestion noted) Neck Neck: Yes no lymphadenopathy and Yes tender Resp Auscultation: clear to auscultation bilaterally, no rales and no wheezes Cardio Rate: regular rate Rhythm: regular rhythm Heart sounds: no murmurs GI Palpation (GI): Soft to palpation and nontender Auscultation: normal bowel sounds Back/Spine/Pelvis Cervical Spine: Cervical spine tenderness Thoracic/Lumbar Spine: lumbar spinal tenderness Skin Rashes: no rashes Neuro Motor exam (neuro): Abnormal motor strength present left lower extremity other 3 / 5 Extrem General: Yes no clubbing, cyanosis or edema Results Reviewed Results Reviewed: Laboratory Tests 06/08/23 06/08/23 06/08/23 08:06 08:06 08:06 WBC 6.3 Hgb 14.8 Hct 45.6 Plt Count 176 Sodium 140 Potassium 4.0 Creatinine 1.54 H Estimated GFR 45 Fasting Glucose 117 H Hemoglobin A1c % 6.0 Uric Acid 7.0 Calcium 9.5 Total Bilirubin 1.2 H AST 26 ALT 26 Triglycerides 83 Cholesterol 146 LDL Cholesterol, Calc 83 HDL Cholesterol 47 25-OH Vitamin D Total 39.1 TSH 1.62 Ur Specific [place] Urine Protein Urine Glucose (UA) Urine Blood Microalb/Creat Ratio 06/08/23 06/08/23 08:07 08:07 WBC Hgb Hct Plt Count Sodium Potassium Creatinine Estimated GFR Fasting Glucose Hemoglobin A1c % Uric Acid Calcium Total Bilirubin AST ALT Triglycerides Cholesterol LDL Cholesterol, Calc HDL Cholesterol 25-OH Vitamin D Total TSH Ur Specific [place] 1.025 Urine Protein 100 (2+) H Urine Glucose (UA) >=1000 H Urine Blood Negative Microalb/Creat Ratio 266.5 Assessment and Plan Assessment & Plan (1) Pure hypercholesterolemia: Code(s): E78.00 - Pure hypercholesterolemia, unspecified Plan: Results of his labs done last week reviewed and discussed with patient Reinforced low cholesterol diet Continue Pravastatin 40 mg QD Will recheck his labs in 4 months for follow up (2) Type 2 diabetes mellitus with diabetic chronic kidney disease: Code(s): E11.22 - Type 2 diabetes mellitus with diabetic chronic kidney disease Qualifiers: Diabetes mellitus long-term insulin use: without long-term use Chronic kidney disease stage: stage 3 (moderate) Chronic kidney disease stage 3 subtype: stage 3a (GFR 45-59) Qualified Code(s): E11.22 - Type 2 diabetes mellitus with diabetic chronic kidney disease; N18.31 - Chronic kidney disease, stage 3a Plan: HgbA1c was at 6.0% on his labs done last week (was at 6.3% a few months ago) - goal is <7.0% Patient reassured that his diabetes has not gotten any worse despite his recent vacation in [place] and his glycemic control has in fact, improved slightly from previous Reinforced diabetic diet Continue Metformin ER 500 mg QD and Glipizide ER 5 mg QD (3) Chronic kidney disease (CKD), stage III (moderate): Code(s): N18.30 - Chronic kidney disease, stage 3 unspecified Qualifiers: Chronic kidney disease stage 3 subtype: stage 3b (GFR 30-44) Qualified Code(s): N18.32 - Chronic kidney disease, stage 3b Plan: His serum creatinine and GFR have remained stable on his recent labs Follow up with Dr. Figueroa as scheduled for nephrology follow up Will continue to monitor his renal function closely (4) Proteinuria, unspecified: Code(s): R80.9 - Proteinuria, unspecified Qualifiers: Proteinuria type: unspecified Qualified Code(s): R80.9 - Proteinuria, unspecified Plan: Stable - advised again that his proteinuria actually has improved somewhat lately as his urine microalbumin level has improved a lot from before Will continue to monitor these regularly (5) Benign essential hypertension: Code(s): I10 - Essential (primary) hypertension Plan: Reinforced low sodium diet - goal is systolic BP of at least 130 mm or less BP has been better controlled lately Continue Lisinopril 40 mg QD, Hydralazine 50 mg TID and Labetalol 200 mg BID (6) Lumbar degenerative disc disease: Code(s): M51.36 - Other intervertebral disc degeneration, lumbar region Plan: Reinforced activity and weight-lifting restrictions Follow up with [facility] as scheduled - states that he gets back injections when needed, which provides him with significant relief of his low back pains (7) Cervical disc herniation: Comment: C6-C7 - S/P discectomy Code(s): M50.20 - Other cervical disc displacement, unspecified cervical region Plan: States that his neck pain has been mostly manageable and he does not need anything else done at this time (8) Vitamin D deficiency: Code(s): E55.9 - Vitamin D deficiency, unspecified Plan: Corrected - continue Vitamin D3 1000 units QD (9) Gout: Code(s): M10.9 - Gout, unspecified Qualifiers: Gout site: unspecified site Gout etiology: idiopathic Chronicity: unspecified Qualified Code(s): M10.00 - Idiopathic gout, unspecified site Plan: Reinforced low purine diet Serum uric acid has remained normal on his recent labs Continue Allopurinol 100 mg QD Plan Follow up in 4 months Orders: Orders Comprehensive [place]. Panel Fast 4 Months E78.00 - Pure hypercholesterolemia, unspecified Hemoglobin A1c 4 Months E11.9 - Type 2 diabetes mellitus without complications Lipid Panel 4 Months E78.00 - Pure hypercholesterolemia, unspecified TSH reflex Free T4 4 Months E78.00 - Pure hypercholesterolemia, unspecified Uric Acid 4 Months M10.9 - Gout, unspecified Vitamin D 25-OH Total 4 Months E55.9 - Vitamin D deficiency, unspecified Microalbumin, Random (w Creat) 4 Months E11.9 - Type 2 diabetes mellitus without complications Complete Blood Count Auto Diff 4 Months I10 - Essential (primary) hypertension UA CC w/rflx Micro + Cult 4 Months R30.0 - Dysuria Coding Level of Care Code Est Pt Level 4 (01418) Diagnoses Pure hypercholesterolemia E78.00 Type 2 diabetes mellitus with diabetic chronic kidney disease E11.22; N18.31 Diabetes mellitus long-term insulin use: without long-term use Chronic kidney disease stage: stage 3 (moderate) Chronic kidney disease stage 3 subtype: stage 3a (GFR 45-59) Chronic kidney disease (CKD), stage III (moderate) N18.32 Chronic kidney disease stage 3 subtype: stage 3b (GFR 30-44) Proteinuria, unspecified R80.9 Proteinuria type: unspecified Benign essential hypertension I10 Lumbar degenerative disc disease M51.36 Cervical disc herniation M50.20 Vitamin D deficiency E55.9 Gout M10.00 Gout site: unspecified site Gout etiology: idiopathic Chronicity: unspecified
== END 2023-06-15 09:34 | disposition home or self-care (01) ==
PROVIDERS: Visit Provider Internal Medicine
DX: E11.22 Type 2 diabetes mellitus with diabetic chronic kidney disease (principal); N18.32 Chronic kidney disease, stage 3b; I12.9 Hypertensive chronic kidney disease with stage 1 through stage 4 chronic kidney disease, or unspecified chronic kidney disease; E55.9 Vitamin D deficiency, unspecified; E78.00 Pure hypercholesterolemia, unspecified; M51.36 Other intervertebral disc degeneration, lumbar region; R80.9 Proteinuria, unspecified; M50.20 Other cervical disc displacement, unspecified cervical region; M10.00 Idiopathic gout, unspecified site
CPT/HCPCS: 99214

== ENCOUNTER 2023-10-05 06:55 | Outpatient (REF) | payer MEDICARE, SELFPAY ==
[2023-10-05 07:11] LABS: MANUAL DIFF FLAG NO
[2023-10-05 07:45] LABS: Basophils Percent Auto 0.6 % (0-2); Eosinophils Absolute Auto 0.1 X10*3/uL (0.0-0.4); Eosinophils Percent Auto 1.7 % (0-4); Hematocrit 53.6 % (42.0-52.0); Hemoglobin 16.9 g/dl (14.0-18.0); Imm Gran Abs Auto 0.02 X10*3/uL (0.00-0.03); Imm Gran Pct Auto 0.3 % (0.0-0.4); Lymphocytes Absolute Auto 1.1 X10*3/uL (1.2-4.9); Lymphocytes Percent Auto 17.8 % (20-40); Mean Corpuscular HGB Conc 31.5 g/dl (31.0-36.0); Mean Corpuscular Hemoglobin 27.3 pg (27.0-33.0); Mean Corpuscular Volume 86.6 fL (80.0-98.0); Mean Platelet Volume 10.2 fL (9.4-12.4); Monocytes Absolute Auto 0.5 X10*3/uL (0.1-1.2); Monocytes Percent Auto 7.3 % (2-11); Neutrophils Absolute Auto 4.6 x10*3/uL (2.0-8.3); Neutrophils Percent Auto 72.3 % (45-73); Platelet Count 193 X10*3/uL (160-400); Red Blood Count 6.19 X10*6/uL (4.60-5.80); Red Cell Distribution Width 14.6 % (11.0-16.0); White Blood Count 6.3 X10*3/uL (4.8-10.8)
[2023-10-05 08:14] LABS: Parathyroid Hormone Intact 63.2 pg/mL (8.7-77.1)
[2023-10-05 08:19] LABS: Albumin Level 4.1 g/dL (3.5-5.0); Anion Gap 12 (12-20); Blood Urea Nitrogen 24 mg/dL (9-16); Calcium 9.8 mg/dL (8.4-10.2); Carbon Dioxide 26 mmol/L (22-29); Chloride 106 mmol/L (96-108); Estimated Glomerular Filt Rate 43; Magnesium 2.3 mg/dL (1.6-2.6); Phosphorus 3.2 mg/dL (2.7-4.5); Potassium 4.9 mmol/L (3.3-5.1); Sodium 139 mmol/L (135-145)
[2023-10-05 08:23] LABS: Appearance Urine Clear; Color Urine Yellow; Glucose Urine UA >=1000 mg/dL (Negative); Leukocyte Esterase Urine Negative (Negative); Nitrite Urine Negative (Negative); PH 5.5 (5.0-9.0); Specific Gravity - Urine 1.025 (1.005-1.025); UMIC TRIGGER UA YES; Urine Blood Negative (Negative); Urine Ketones Negative (Negative); Urine Protein 30 (1+) mg/dL (Neg-Trace)
[2023-10-05 08:39] LABS: Vitamin D 25-OH Total 52.4 ng/mL (>30)
[2023-10-05 08:45] LABS: WBC Urine 0-5 /HPF (0-5)
[2023-10-05 08:46] LABS: Bacteria Urine None Seen (None Seen); Hyaline Casts Urine 0-2 /LPF (0-2); RBC Urine 0-2 /HPF (0-2); Squamous Epithelial Cell Urine 0-2 /HPF (0-2)
[2023-10-05 08:55] LABS: Creatinine Urine 102.17 mg/dL; Microalbum/Creatinine Ratio Ur 306.3 ug/mg cr (<30); Total Protein Urine Random 41 mg/dL (<12)
== END 2023-10-05 06:56 | disposition home or self-care (01) ==
LOC: HO.LAB 06:55
PROVIDERS: PCP Internal Medicine; Visit Provider Internal Medicine Nephrology
DX: E11.22 Type 2 diabetes mellitus with diabetic chronic kidney disease (principal); I12.9 Hypertensive chronic kidney disease with stage 1 through stage 4 chronic kidney disease, or unspecified chronic kidney disease; E11.21 Type 2 diabetes mellitus with diabetic nephropathy; N18.31 Chronic kidney disease, stage 3a; R82.90 Unspecified abnormal findings in urine
CPT/HCPCS: 36415; 80051; 81001; 82040; 82043; 82306; 82310; 82565; 82570; 83735; 83970; 84100; 84156; 84520; 85025; 87086

== ENCOUNTER 2023-10-09 13:28 | Outpatient (REF) | payer MEDICARE, SELFPAY ==
[2023-10-09 14:35] LABS: Appearance Urine Clear; Color Urine Yellow; Glucose Urine UA >=1000 mg/dL (Negative); Leukocyte Esterase Urine Negative (Negative); Nitrite Urine Negative (Negative); PH 5.5 (5.0-9.0); UMIC TRIGGER UA YES; Urine Blood Negative (Negative); Urine Ketones Negative (Negative); Urine Protein Trace mg/dL (Neg-Trace)
[2023-10-09 14:40] LABS: Bacteria Urine None Seen (None Seen); Hyaline Casts Urine 0-2 /LPF (0-2); RBC Urine 0-2 /HPF (0-2); Squamous Epithelial Cell Urine 0-2 /HPF (0-2); WBC Urine 0-5 /HPF (0-5)
[2023-10-09 15:16] LABS: Creatinine Urine 78.59 mg/dL; Protein/Creatinine Ratio, Ur 0.37 (<0.2); Total Protein Urine Random 29 mg/dL (<12)
== END 2023-10-09 13:29 | disposition home or self-care (01) ==
LOC: HO.LAB 13:28
PROVIDERS: Visit Provider Internal Medicine Nephrology
DX: R30.0 Dysuria (principal); E11.22 Type 2 diabetes mellitus with diabetic chronic kidney disease; N18.30 Chronic kidney disease, stage 3 unspecified
CPT/HCPCS: 81001; 82570; 84156; 87086

== ENCOUNTER 2023-10-15 09:12 | Outpatient (AMB) | payer MEDICARE, SELFPAY ==
[2023-10-15 09:26] VITALS: BP 130/80; PULSE 74; BMI 23.3
--- NOTE | 2023-10-15 09:26 | HO.NEPHOV ---
HPI HPI Comments History of Present Illness Details I had the privilege of seeing Yrn in consultation and transfer care for management of his chronic kidney disease and hypertension. He has been a diabetic for over 10 years. He is known to have proteinuria. His last hemoglobin A1c has been 6 but lately he is fasting blood sugars have been on the higher side for unknown reasons as per the patient. His blood pressure has been at goal. He does not have any edema. He has been having some burning on micturition which he felt was associated with Jardiance and he had discontinued it. His urine culture was negative. He has some prostatic symptoms. He has never had a renal biopsy. He denies any chest pain, shortness of breath, proximal nocturnal dyspnea, orthopnea, pedal edema, hematuria, epistaxis, photosensitivity, joint swellings, hematemesis, melena. He does not take any nonsteroidal anti-inflammatory medications. He hydrates himself very well. [facility] Medical History Cervical disc herniation Chronic kidney disease (CKD), stage III (moderate) Vitamin D deficiency Gout Lumbar degenerative disc disease Benign essential hypertension Pure hypercholesterolemia Proteinuria, unspecified Type 2 diabetes mellitus with diabetic chronic kidney disease Surgical History History of extraction of renal calculus History of cervical discectomy History of laminectomy Family History Father No problems noted. Mother No problems noted. Brother Diabetes Brother Heart problem Social History Household Members: Spouse Housing: House Alcohol intake: former Patient Tobacco Use Status: Former Tobacco user e-Cigarette/Vaping Use: Never Used Second Hand Smoke Exposure: No service: No Current occupational status: retired Cognitive needs: No Hearing needs: No Vision needs: No Vital Signs 10/15/23 09:26 Height 5 ft 6 in Weight 144 lb 4 oz BMI 23.3 BP 130/80 Blood Pressure Location Lt brachial Position Sitting Pulse 74 Pulse Source Pulse Oximeter Physical Exam Vital Signs: Last Vital Signs Pulse 74 10/15/23 09:26 BP 130/80 10/15/23 09:26 BMI result Body Mass Index 23.3 Const General: comfortable and no acute distress Orientation/consciousness: patient oriented x3 HEENT Head: Yes normocephalic Mouth: Normal oral and palatal mucosa present Eyes EOM: EOMs intact bilaterally Neck Neck: Yes supple Resp Auscultation: clear to auscultation bilaterally Cardio Jugular venous distension: no JVD Rate: regular rate GI Palpation (GI): Soft to palpation Auscultation: normal bowel sounds General: Yes no CVA tenderness Back/Spine/Pelvis Back: no CVA tenderness Skin General skin exam: no rashes or lesions noted Neuro General: patient oriented x3 and moves all extremities Extrem General: Yes no pedal edema Assessment & Plan Assessment & Plan (1) Chronic kidney disease (CKD), stage III (moderate): Code(s): N18.30 - Chronic kidney disease, stage 3 unspecified Qualifiers: Chronic kidney disease stage 3 subtype: stage 3b (GFR 30-44) Qualified Code(s): N18.32 - Chronic kidney disease, stage 3b (2) Benign essential hypertension: Code(s): I10 - Essential (primary) hypertension (3) Type 2 diabetes mellitus with diabetic chronic kidney disease: Code(s): E11.22 - Type 2 diabetes mellitus with diabetic chronic kidney disease Qualifiers: Chronic kidney disease stage: stage 3 (moderate) Chronic kidney disease stage 3 subtype: stage 3a (GFR 45-59) Diabetes mellitus mcfp insulin use: without mcfp use Qualified Code(s): E11.22 - Type 2 diabetes mellitus with diabetic chronic kidney disease; N18.31 - Chronic kidney disease, stage 3a (4) Proteinuria, unspecified: Code(s): R80.9 - Proteinuria, unspecified Qualifiers: Proteinuria type: unspecified Qualified Code(s): R80.9 - Proteinuria, unspecified Plan 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 He has not had proteinuria. He is on BERT-inhibitor. His serum potassium is normal. His blood pressure is at goal. His last hemoglobin A1c was 6. He hydrates himself well. He never had a renal biopsy. He had been on Jardiance which he had discontinued. I encouraged him to reconsider taking Jardiance. I ordered PSA. He may need an alpha reyna if he has ongoing prostatic symptoms. His renal functions are currently stable. He needs to keep his LDL low. I did not make any medication changes today. All his questions were answered. Time spent for retrieving data, documentation and patient encounter 29 minutes. Follow-up given. Orders: Orders Creatinine Today E11.22 - Type 2 diabetes mellitus with diabetic chronic kidney disease, I10 - Essential (primary) hypertension, N18.30 - Chronic kidney disease, stage 3 unspecified, R80.9 - Proteinuria, unspecified Electrolytes Today E11.22 - Type 2 diabetes mellitus with diabetic chronic kidney disease, I10 - Essential (primary) hypertension, N18.30 - Chronic kidney disease, stage 3 unspecified, R80.9 - Proteinuria, unspecified Blood Urea Nitrogen Today E11.22 - Type 2 diabetes mellitus with diabetic chronic kidney disease, I10 - Essential (primary) hypertension, N18.30 - Chronic kidney disease, stage 3 unspecified, R80.9 - Proteinuria, unspecified PSA,Total (Free>4and<10) Today E11.22 - Type 2 diabetes mellitus with diabetic chronic kidney disease, I10 - Essential (primary) hypertension, N18.30 - Chronic kidney disease, stage 3 unspecified, R80.9 - Proteinuria, unspecified Coding Level of Care Code New Pt Level 4 (88303) Diagnoses Stage 3b chronic kidney disease N18.32 Chronic kidney disease stage 3 subtype: stage 3b (GFR 30-44) Benign essential hypertension I10 Type 2 diabetes mellitus with stage 3a chronic kidney disease, without long-term current use of insulin E11.; N18.31 Chronic kidney disease stage: stage 3 (moderate) Chronic kidney disease stage 3 subtype: stage 3a (GFR 45-59) 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 Proteinuria, unspecified type R80.9 Proteinuria type: unspecified Results Reviewed Nephrology Results: Hgb 16.9 g/dl (14.0-18.0) 10/05/23 WBC 6.3 X10*3/uL (4.8-10.8) 10/05/23 Plt Count 193 X10*3/uL (160-400) 10/05/23 Sodium 139 mmol/L (135-145) 10/05/23 Potassium 4.9 mmol/L (3.3-5.1) 10/05/23 Chloride 106 mmol/L (96-108) 10/05/23 Carbon Dioxide 26 mmol/L (22-29) 10/05/23 BUN 24 mg/dL (9-16) H 10/05/23 Creatinine 1.62 mg/dL (0.5-1.4) H 10/05/23 Calcium 9.8 mg/dL (8.4-10.2) 10/05/23 Phosphorus 3.2 mg/dL (2.7-4.5) 10/05/23 PTH Intact 63.2 pg/mL (8.7-77.1) 10/05/23 Urine Protein Trace mg/dL (Neg-Trace) 10/09/23 Urine Creatinine 78.59 mg/dL 10/09/23 Protein/Creatinin Ratio 0.37 (<0.2) H 10/09/23
== END 2023-10-15 09:49 | disposition home or self-care (01) ==
PROVIDERS: PCP Internal Medicine; Visit Provider Internal Medicine Nephrology
DX: E11.22 Type 2 diabetes mellitus with diabetic chronic kidney disease (principal); N18.32 Chronic kidney disease, stage 3b; I10 Essential (primary) hypertension; N18.31 Chronic kidney disease, stage 3a; R80.9 Proteinuria, unspecified
CPT/HCPCS: 99204

== ENCOUNTER → 2023-10-15 09:12 | Outpatient (BNVA) | payer MEDICARE, SELFPAY | PROVIDERS: PCP Internal Medicine; Visit Provider Internal Medicine Nephrology | DX: E11.22 Type 2 diabetes mellitus with diabetic chronic kidney disease (principal); I12.9 Hypertensive chronic kidney disease with stage 1 through stage 4 chronic kidney disease, or unspecified chronic kidney disease; N18.32 Chronic kidney disease, stage 3b; R80.9 Proteinuria, unspecified | CPT/HCPCS: 99202 ==

== ENCOUNTER 2023-10-17 06:11 | Outpatient (REF) | payer MEDICARE, SELFPAY ==
[2023-10-17 06:28] LABS: MANUAL DIFF FLAG NO
[2023-10-17 07:17] LABS: Basophils Percent Auto 0.8 % (0-2); Eosinophils Absolute Auto 0.1 X10*3/uL (0.0-0.4); Eosinophils Percent Auto 2.3 % (0-4); Hematocrit 48.7 % (42.0-52.0); Hemoglobin 15.4 g/dl (14.0-18.0); Imm Gran Abs Auto 0.01 X10*3/uL (0.00-0.03); Imm Gran Pct Auto 0.2 % (0.0-0.4); Lymphocytes Percent Auto 17.9 % (20-40); Mean Corpuscular HGB Conc 31.6 g/dl (31.0-36.0); Mean Corpuscular Hemoglobin 26.7 pg (27.0-33.0); Mean Corpuscular Volume 84.4 fL (80.0-98.0); Mean Platelet Volume 9.8 fL (9.4-12.4); Monocytes Absolute Auto 0.4 X10*3/uL (0.1-1.2); Monocytes Percent Auto 6.6 % (2-11); Neutrophils Absolute Auto 3.8 x10*3/uL (2.0-8.3); Neutrophils Percent Auto 72.2 % (45-73); Platelet Count 195 X10*3/uL (160-400); Red Blood Count 5.77 X10*6/uL (4.60-5.80); Red Cell Distribution Width 13.3 % (11.0-16.0); White Blood Count 5.3 X10*3/uL (4.8-10.8)
[2023-10-17 07:27] LABS: Estimated Average Glucose 137 mg/dL; Hemoglobin A1c % 6.4 % (<6.0)
[2023-10-17 07:43] LABS: Alanine Aminotransferase 24 U/L (0-40); Albumin Level 3.8 g/dL (3.5-5.0); Alkaline Phosphatase 50 U/L (39-117); Anion Gap 11 (12-20); Aspartate Amino Transferase 24 U/L (5-37); Bilirubin Total 0.8 mg/dL (0.0-1.0); Blood Urea Nitrogen 16 mg/dL (9-16); Calcium 9.3 mg/dL (8.4-10.2); Carbon Dioxide 25 mmol/L (22-29); Chloride 104 mmol/L (96-108); Cholesterol 143 mg/dL (<200); Estimated Glomerular Filt Rate 44; Glucose Fasting 184 mg/dL (60-99); HDL Cholesterol 50 mg/dL (>40); LDL Cholesterol Calculated 75 mg/dL (<100); Potassium 4.4 mmol/L (3.3-5.1); Sodium 136 mmol/L (135-145); Total Protein 6.4 g/dL (6.5-8.0); Triglycerides 94 mg/dL (<150); Uric Acid 5.3 mg/dL (3.4-7.0)
[2023-10-17 08:03] LABS: TSH reflex Free T4 3.44 uIU/mL (0.32-4.0); Vitamin D 25-OH Total 45.1 ng/mL (>30)
[2023-10-17 10:32] LABS: Appearance Urine Clear; Color Urine Yellow; Glucose Urine UA 100 mg/dL (Negative); Leukocyte Esterase Urine Trace (Negative); Nitrite Urine Negative (Negative); PH 5.5 (5.0-9.0); Specific Gravity - Urine 1.015 (1.005-1.025); UMIC TRIGGER UACC YES; Urine Blood Negative (Negative); Urine Ketones Negative (Negative); Urine Protein 100 (2+) mg/dL (Neg-Trace)
[2023-10-17 10:54] LABS: Bacteria Urine None Seen (None Seen); RBC Urine 0-2 /HPF (0-2); Squamous Epithelial Cell Urine 0-2 /HPF (0-2); WBC Urine 0-5 /HPF (0-5)
[2023-10-17 10:58] LABS: Creatinine Urine 203.37 mg/dL
[2023-10-17 11:46] LABS: Microalbum/Creatinine Ratio Ur 233.5 ug/mg cr (<30)
== END 2023-10-17 06:12 | disposition home or self-care (01) ==
LOC: HO.LAB 06:11
PROVIDERS: PCP Internal Medicine; Visit Provider Internal Medicine
DX: I10 Essential (primary) hypertension (principal); E78.00 Pure hypercholesterolemia, unspecified; E11.9 Type 2 diabetes mellitus without complications; E55.9 Vitamin D deficiency, unspecified; M10.9 Gout, unspecified; R30.0 Dysuria
CPT/HCPCS: 36415; 80053; 80061; 81001; 82043; 82306; 82570; 83036; 84443; 84550; 85025

== ENCOUNTER 2023-10-23 09:05 | Outpatient (AMB) | payer MEDICARE, SELFPAY ==
[2023-10-23 09:17] VITALS: BP 138/92; PULSE 73; O2SAT 96; BMI 22.8
--- NOTE | 2023-10-23 09:17 | MHC.PC.OV ---
Vital Signs 10/23/23 09:17 Height 5 ft 6 in Weight 141 lb 6 oz BMI 22.8 BP 138/92 H Blood Pressure Location Lt brachial Position Sitting Pulse 73 Pulse Source Pulse Oximeter Pulse Oximetry (%) 96 Oxygen Delivery Method Room Air Intake Visit Reasons: DM, hyperlipidemia, HTN, CKD Pig Breeder Required: No Accompanied by: Self / Same As Patient Allergies amlodipine Adverse Reaction (Intermediate, Verified 10/23/23 09:38) edema Medication List - Last Reconciled 10/23/23 by Nikhil Knutson MD allopurinol 100 mg PO DAILY 90 days blood sugar diagnostic 1 strip miscellaneous DAILY 30 days cholecalciferol (vitamin D3) 25 mcg PO DAILY glipizide ER 5 mg PO DAILY hydralazine 50 mg PO TID 90 days labetalol 200 mg PO BID lisinopril 40 mg PO DAILY 90 days metformin ER 500 mg PO BEDTIME omega-3 fatty acids (Fish Oil Concentrate) 1,000 mg PO DAILY pravastatin 40 mg PO DAILY Tobacco use date assessed: 10/23/23 Fall risk assessment: No Falls in past year Last assessed Fall Risk: 10/23/23 Dental Screening Dental Screen Date: 10/23/23 Did you have a dental visit in the last 12 months?: Yes Did you have a dental problem in the last 6 months where you did not have access to dental care?: No Was dental information given to patient?: Patient has dentist HPI DM, hyperlipidemia, HTN, CKD HPI Details Patient comes in today for his follow up visit States that he feels okay Admitted to stopping his Jardiance a while back as he felt that the Rx was causing him to experience symptoms of urinary urgency and frequency but he started back on 1/2 tablet daily of Jardiance after he was seen by Dr. Vanegas for nephrology follow up last week and was advised to start back on it He denies any headaches or dizziness Denies any chest pains, no SOB No nausea/vomiting, no abdominal pain No change in bowel habits noted Had his follow up labs done last week - to discuss his results [facility] Medical History Cervical disc herniation Chronic kidney disease (CKD), stage III (moderate) Vitamin D deficiency Gout Lumbar degenerative disc disease Benign essential hypertension Pure hypercholesterolemia Proteinuria, unspecified Type 2 diabetes mellitus with diabetic chronic kidney disease Surgical History History of extraction of renal calculus History of cervical discectomy History of laminectomy Family History Father No problems noted. Mother No problems noted. Brother Diabetes Brother Heart problem Social History Household Members: Spouse Housing: House Alcohol intake: former Patient Tobacco Use Status: Former Tobacco user e-Cigarette/Vaping Use: Never Used Second Hand Smoke Exposure: No service: No Current occupational status: retired Cognitive needs: No Hearing needs: No Vision needs: No Questionnaire PHQ-9 Over the last 2 weeks, how often have you been bothered by any of the following problems? 1. Little interest or pleasure in doing things: not at all 2. Feeling down, depressed, or hopeless: not at all 3. Trouble falling or staying asleep, or sleeping too much: not at all 4. Feeling tired or having little energy: not at all 5. Poor appetite or overeating: not at all 6. Feeling bad about yourself - or that you are a failure or have let yourself or your family down: not at all 7. Trouble concentrating on things, such as reading the newspaper or watching television: not at all 8. Moving or speaking so slowly that other people could have noticed. Or the opposite - being so fidgety or restless that you have been moving around a lot more than usual: not at all 9. Thoughts that you would be better off or of hurting yourself in some way: not at all Total score: 0 Depression Screening Interpretation: Negative Depression Screening Done: Yes 72029 - PHQ-9 Billing: Yes Source: Developed by Drs. Tray Benoit, Frannie Tolentino, Jarett Santiago and colleagues, with an educational karlos from [employer]. Thrive Questionnaire Date Thrive assessed: 10/23/23 I am a: Patient What is your living situation today?: I have a steady place to live Within the past 12 months, did the food you bought not last and you didn't have the money to get more?: Never true Within the past 12 months, did you worry whether your food would run out before you got money to buy more?: Never true Do you have trouble paying for medicines?: No Do you have trouble getting transportation to medical appointments?: No Do you have trouble paying your heating and electricity bill?: No Do you have trouble taking care of your child, family member or friend?: No Do you have trouble with day-to-day activities such as bathing, preparing meals, shopping, managing finances, etc.?: No Are you currently unemployed and looking for a job?: No Are you interested in more education?: No Please select the resources that you would like help with: None Currently or been in a relationship where the following occur: no concerns reported AUDIT C Alcohol Use Questionnaire (AUDIT-C) 1. How often do you have a drink containing alcohol?: Never 3. How often do you have six or more drinks on one occasion?: Never Total Score: 0 Score Reviewed/Action Taken: Yes PB-7 AMB Questionnaire PB-7 Date PB - 7 assessed: 10/23/23 Feeling nervous, anxious, or on edge: 0 = Not at all Not being able to stop or control worryin = Not at all Worrying too much about different things: 0 = Not at all Trouble relaxin = Not at all Being so restless that it is hard to sit still: 0 = Not at all Becoming easily annoyed or irritable: 0 = Not at all Feeling afraid as if something awful might happen: 0 = Not at all Total PB-7 score (0-4 normal; 5-9 mild; 10-14 moderate; 15-21 severe): 0 Source: Developed by Drs. Tray Benoit, Frannie Tolentino, Jarett Santiago and colleagues, with an educational karlos from [employer]. Review of Systems Const Denies chills, Denies fatigue, Denies fever(s) and Denies headache(s) ENT Denies dysphagia, Denies dizziness, Denies otalgia, Denies headache(s), Reports neck pain (chronic), Denies odynophagia and Denies sore throat Card Denies chest pain, Denies palpitations and Denies dyspnea Resp Denies chest congestion, Denies cough and Denies dyspnea GI Denies abdominal pain, Denies constipation, Denies dysphagia, Denies heartburn, Denies diarrhea, Denies nausea, Denies odynophagia and Denies vomiting Denies dysuria, Denies nocturia and Denies urinary frequency Musc Details: (+) recurrent pain in both feet Reports back pain (over the lower back - chronic) and Reports neck pain (chronic) Skin/Breast Denies rash Neuro Denies dizziness and Denies headache(s) Endo Denies fatigue and Denies palpitations Physical exam (Primary Care) Vital Signs: Last Vital Signs Pulse 73 10/23/23 09:17 BP 138/92 H 10/23/23 09:17 Pulse Ox 96 10/23/23 09:17 Oxygen Delivery Method Room Air 10/23/23 09:17 BMI result Body Mass Index 22.8 Tobacco/Smoking Status: Tobacco use Status Tobacco use date assessed 10/23/23 10/23/23 09:23 Patient Tobacco Use Status Former Tobacco user 10/23/23 09:23 e-Cigarette/Vaping Use Never Used 10/23/23 09:23 PHQ-9: PHQ-9 Score PHQ-9: Total score 0 10/23/23 09:23 Depression Screening Interpretation: Negative Thrive Assessment: Date of Thrive Assessment Date Thrive assessed 10/23/23 10/23/23 09:23 Currently or been in a relationship where the following occur: no concerns reported Const General: no acute distress and alert HENMT Ears: TM's normal bilaterally and EAC's normal Throat: Yes posterior oropharynx normal and Yes tonsils normal (no TP congestion noted) Neck Neck: Yes no lymphadenopathy and Yes tender Resp Auscultation: clear to auscultation bilaterally, no rales and no wheezes Cardio Rate: regular rate Rhythm: regular rhythm Heart sounds: no murmurs GI Palpation (GI): Soft to palpation and nontender Auscultation: normal bowel sounds Back/Spine/Pelvis Cervical Spine: Cervical spine tenderness Thoracic/Lumbar Spine: lumbar spinal tenderness Skin Rashes: no rashes Neuro Motor exam (neuro): Abnormal motor strength present left lower extremity other 3 / 5 Extrem General: Yes no clubbing, cyanosis or edema Results Reviewed Results Reviewed: Laboratory Tests 10/17/23 10/17/23 06:20 06:23 WBC 5.3 Hgb 15.4 Hct 48.7 Plt Count 195 Sodium 136 Potassium 4.4 Creatinine 1.58 H Estimated GFR 44 Fasting Glucose 184 H Hemoglobin A1c % 6.4 H Uric Acid 5.3 Calcium 9.3 AST 24 ALT 24 Triglycerides 94 Cholesterol 143 LDL Cholesterol, Calc 75 HDL Cholesterol 50 25-OH Vitamin D Total 45.1 TSH 3.44 Ur Specific [place] 1.015 Urine Protein 100 (2+) H Urine Glucose (UA) 100 H Urine Blood Negative Microalb/Creat Ratio 233.5 H Assessment and Plan Assessment & Plan (1) Pure hypercholesterolemia: Code(s): E78.00 - Pure hypercholesterolemia, unspecified Plan: Results of his labs done last week reviewed and discussed with patient Reinforced low cholesterol diet Continue Pravastatin 40 mg QD Will recheck his labs and fasting lipids in 4 months for follow up (2) Type 2 diabetes mellitus with diabetic chronic kidney disease: Code(s): E11.22 - Type 2 diabetes mellitus with diabetic chronic kidney disease Qualifiers: Diabetes mellitus trailer mechanic insulin use: without trailer mechanic use Chronic kidney disease stage: stage 3 (moderate) Chronic kidney disease stage 3 subtype: stage 3a (GFR 45-59) Qualified Code(s): E11.22 - Type 2 diabetes mellitus with diabetic chronic kidney disease; N18.31 - Chronic kidney disease, stage 3a Plan: HgbA1c was at 6.4% on his labs done last week (was at 6.0% a few months ago) - goal is <7.0% Reinforced diabetic diet Continue Metformin ER 500 mg QD and Glipizide ER 5 mg QD He was started previously on Jardiance 25 mg QD but he stopped taking it after a while as he felt that the Rx was causing him to experience urinary frequency and urgency but was convinced by nephrology to start back on it and that his urinary symptoms may be due to prostate enlargement instead Patient started back on ONE HALF tablet (12.5 mg) of Jardiance QD last week and has not had any symptoms so far (3) Chronic kidney disease (CKD), stage III (moderate): Code(s): N18.30 - Chronic kidney disease, stage 3 unspecified Qualifiers: Chronic kidney disease stage 3 subtype: stage 3b (GFR 30-44) Qualified Code(s): N18.32 - Chronic kidney disease, stage 3b Plan: His serum creatinine and GFR have remained stable on his recent labs Follow up with Dr. Vanegas as scheduled for nephrology follow up Will continue to monitor his renal function closely (4) Proteinuria, unspecified: Code(s): R80.9 - Proteinuria, unspecified Qualifiers: Proteinuria type: unspecified Qualified Code(s): R80.9 - Proteinuria, unspecified Plan: Stable - advised again that his proteinuria actually has improved somewhat lately as his urine microalbumin level has improved a lot from before Will continue to monitor these regularly (5) Benign essential hypertension: Code(s): I10 - Essential (primary) hypertension Plan: Reinforced low sodium diet - goal is systolic BP of at least 130 mm or less BP has been better controlled lately Continue Lisinopril 40 mg QD, Hydralazine 50 mg TID and Labetalol 200 mg BID (6) Lumbar degenerative disc disease: Code(s): M51.36 - Other intervertebral disc degeneration, lumbar region Plan: Reinforced activity and weight-lifting restrictions Follow up with [facility] as scheduled - states that he gets back injections when needed, which provides him with significant relief of his low back pains (7) Cervical disc herniation: Comment: C6-C7 - S/P discectomy Code(s): M50.20 - Other cervical disc displacement, unspecified cervical region Plan: States that his neck pain has been mostly manageable and he does not need anything else done at this time (8) Vitamin D deficiency: Code(s): E55.9 - Vitamin D deficiency, unspecified Plan: Corrected - continue Vitamin D3 1000 units QD (9) Gout: Code(s): M10.9 - Gout, unspecified Qualifiers: Gout site: unspecified site Gout etiology: idiopathic Chronicity: unspecified Qualified Code(s): M10.00 - Idiopathic gout, unspecified site Plan: Reinforced low purine diet Serum uric acid has remained normal on his recent labs Continue Allopurinol 100 mg QD Plan Follow up in 4 months Orders: Orders Comprehensive Oneco. Panel Fast 4 Months E78.00 - Pure hypercholesterolemia, unspecified Complete Blood Count Auto Diff 4 Months I10 - Essential (primary) hypertension Microalbumin, Random (w Creat) 4 Months E11.9 - Type 2 diabetes mellitus without complications Vitamin D 25-OH Total 4 Months E55.9 - Vitamin D deficiency, unspecified Uric Acid 4 Months M10.9 - Gout, unspecified Lipid Panel 4 Months E78.00 - Pure hypercholesterolemia, unspecified Hemoglobin A1c 4 Months E11.9 - Type 2 diabetes mellitus without complications TSH reflex Free T4 4 Months E78.00 - Pure hypercholesterolemia, unspecified UA CC w/rflx Micro + Cult 4 Months R30.0 - Dysuria Medications: Changed From empagliflozin (Jardiance) 25 mg PO QAM To empagliflozin (Jardiance) 12.5 mg (1/2 x 25 mg) PO QAM 30 tabs 0RF Coding Level of Care Code Est Pt Level 4 (15903) Diagnoses Pure hypercholesterolemia E78.00 Type 2 diabetes mellitus with stage 3a chronic kidney disease, without long-term current use of insulin E11.22; N18.31 Diabetes mellitus trailer mechanic insulin use: without custodial use Chronic kidney disease stage: stage 3 (moderate) Chronic kidney disease stage 3 subtype: stage 3a (GFR 45-59) Stage 3b chronic kidney disease N18.32 Chronic kidney disease stage 3 subtype: stage 3b (GFR 30-44) Proteinuria, unspecified type R80.9 Proteinuria type: unspecified Benign essential hypertension I10 Lumbar degenerative disc disease M51.36 Cervical disc herniation M50.20 Vitamin D deficiency E55.9 Idiopathic gout, unspecified chronicity, unspecified site M10.00 Gout site: unspecified site Gout etiology: idiopathic Chronicity: unspecified
== END 2023-10-23 09:56 | disposition home or self-care (01) ==
PROVIDERS: PCP Internal Medicine; Visit Provider Internal Medicine
DX: E78.00 Pure hypercholesterolemia, unspecified (principal); E11.22 Type 2 diabetes mellitus with diabetic chronic kidney disease; I12.9 Hypertensive chronic kidney disease with stage 1 through stage 4 chronic kidney disease, or unspecified chronic kidney disease; N18.32 Chronic kidney disease, stage 3b; M51.36 Other intervertebral disc degeneration, lumbar region; M50.20 Other cervical disc displacement, unspecified cervical region; E55.9 Vitamin D deficiency, unspecified; M10.00 Idiopathic gout, unspecified site
CPT/HCPCS: 99214

== ENCOUNTER 2023-12-10 07:29 | Outpatient (REF) | payer MEDICARE, SELFPAY ==
[2023-12-10 08:53] LABS: Appearance Urine Clear; Color Urine Yellow; Glucose Urine UA >=1000 mg/dL (Negative); Leukocyte Esterase Urine Negative (Negative); Nitrite Urine Negative (Negative); PH 5.5 (5.0-9.0); Specific Gravity - Urine 1.015 (1.005-1.025); UMIC TRIGGER UA YES; Urine Blood Negative (Negative); Urine Ketones Negative (Negative); Urine Protein 30 (1+) mg/dL (Neg-Trace)
[2023-12-10 08:58] LABS: Bacteria Urine None Seen (None Seen); Hyaline Casts Urine 0-2 /LPF (0-2); RBC Urine 0-2 /HPF (0-2); Squamous Epithelial Cell Urine 0-2 /HPF (0-2); WBC Urine 0-5 /HPF (0-5)
[2023-12-10 09:21] LABS: Anion Gap 14 (12-20); Blood Urea Nitrogen 30 mg/dL (9-16); Calcium 10.2 mg/dL (8.4-10.2); Carbon Dioxide 25 mmol/L (22-29); Chloride 103 mmol/L (96-108); Estimated Glomerular Filt Rate 32; Potassium 5.1 mmol/L (3.3-5.1); Sodium 137 mmol/L (135-145)
[2023-12-10 09:41] LABS: PSA,Total (Free>4and<10) 0.27 ng/mL (0.00-4.00)
== END 2023-12-10 07:30 | disposition home or self-care (01) ==
LOC: HO.LAB 07:29
PROVIDERS: PCP Internal Medicine; Visit Provider Internal Medicine Nephrology
DX: E11.22 Type 2 diabetes mellitus with diabetic chronic kidney disease (principal); I12.9 Hypertensive chronic kidney disease with stage 1 through stage 4 chronic kidney disease, or unspecified chronic kidney disease; N18.30 Chronic kidney disease, stage 3 unspecified; R80.9 Proteinuria, unspecified; R30.0 Dysuria; Z12.5 Encounter for screening for malignant neoplasm of prostate
CPT/HCPCS: 36415; 80051; 81001; 82310; 82565; 84153; 84520

== ENCOUNTER 2023-12-18 09:19 | Outpatient (AMB) | payer MEDICARE, SELFPAY ==
[2023-12-18 09:32] VITALS: BP 124/72; PULSE 70; O2SAT 97; BMI 23.1
--- NOTE | 2023-12-18 09:32 | HO.NEPHOV ---
HPI HPI Comments History of Present Illness Details I had the privilege of seeing Yrn in follow up for management of his chronic kidney disease and hypertension. He has been a diabetic for over 10 years. He is known to have proteinuria. His last hemoglobin A1c has been 6 but lately he is fasting blood sugars have been on the higher side for unknown reasons as per the patient. His blood pressure has been at goal. He does not have any edema. He had some burning on micturition which he felt was associated with Jardiance and he had discontinued it. His urine culture was negative. He has some prostatic symptoms. He has never had a renal biopsy. He denies any chest pain, shortness of breath, proximal nocturnal dyspnea, orthopnea, pedal edema, hematuria, epistaxis, photosensitivity, joint swellings, hematemesis, melena. He does not take any nonsteroidal anti-inflammatory medications. He hydrates himself very well. [facility] Medical History Cervical disc herniation Chronic kidney disease (CKD), stage III (moderate) Vitamin D deficiency Gout Lumbar degenerative disc disease Benign essential hypertension Pure hypercholesterolemia Proteinuria, unspecified Type 2 diabetes mellitus with diabetic chronic kidney disease Surgical History History of extraction of renal calculus History of cervical discectomy History of laminectomy Family History Father No problems noted. Mother No problems noted. Brother Diabetes Brother Heart problem Social History Household Members: Spouse Housing: House Alcohol intake: former Patient Tobacco Use Status: Former Tobacco user e-Cigarette/Vaping Use: Never Used Second Hand Smoke Exposure: No service: No Current occupational status: retired Cognitive needs: No Hearing needs: No Vision needs: No Vital Signs 12/18/23 09:32 Height 5 ft 6 in Weight 143 lb 4 oz BMI 23.1 BP 124/72 Blood Pressure Location Lt brachial Position Sitting Pulse 70 Pulse Source Pulse Oximeter Pulse Oximetry (%) 97 Oxygen Delivery Method Room Air Physical Exam Vital Signs: Last Vital Signs Pulse 70 12/18/23 09:32 BP 124/72 12/18/23 09:32 Pulse Ox 97 12/18/23 09:32 Oxygen Delivery Method Room Air 12/18/23 09:32 BMI result Body Mass Index 23.1 Const General: comfortable and no acute distress Orientation/consciousness: patient oriented x3 HEENT Head: Yes normocephalic Mouth: Normal oral and palatal mucosa present Eyes EOM: EOMs intact bilaterally Neck Neck: Yes supple Resp Auscultation: clear to auscultation bilaterally Cardio Jugular venous distension: no JVD Rate: regular rate GI Palpation (GI): Soft to palpation Auscultation: normal bowel sounds General: Yes no CVA tenderness Back/Spine/Pelvis Back: no CVA tenderness Skin General skin exam: no rashes or lesions noted Neuro General: patient oriented x3 and moves all extremities Extrem General: Yes no pedal edema Assessment & Plan Assessment & Plan (1) Chronic kidney disease (CKD), stage III (moderate): Code(s): N18.30 - Chronic kidney disease, stage 3 unspecified Qualifiers: Chronic kidney disease stage 3 subtype: stage 3b (GFR 30-44) Qualified Code(s): N18.32 - Chronic kidney disease, stage 3b (2) Benign essential hypertension: Code(s): I10 - Essential (primary) hypertension (3) Acute kidney injury: Code(s): N17.9 - Acute kidney failure, unspecified Plan 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 He has not had proteinuria. He is on BERT-inhibitor. His serum potassium is normal. His blood pressure is at goal. His last hemoglobin A1c was 6. He hydrates himself well. He never had a renal biopsy. He had been on Jardiance which he had discontinued. He is taking Jardiance. He may need an alpha reyna if he has ongoing prostatic symptoms. His serum creatinine is up. His lisinopril dose was reduced to 20 mg now. He needs to keep his LDL low. I did not make any other medication changes today. All his questions were answered. F/U labs in 4 weeks and 6 weeks Orders: Orders Creatinine Today I10 - Essential (primary) hypertension, N17.9 - Acute kidney failure, unspecified, N18.30 - Chronic kidney disease, stage 3 unspecified Blood Urea Nitrogen Today I10 - Essential (primary) hypertension, N17.9 - Acute kidney failure, unspecified, N18.30 - Chronic kidney disease, stage 3 unspecified Electrolytes Today I10 - Essential (primary) hypertension, N17.9 - Acute kidney failure, unspecified, N18.30 - Chronic kidney disease, stage 3 unspecified Medications: Changed From lisinopril 40 mg PO DAILY 90 days 90 tabs 1RF To lisinopril 20 mg (1/2 x 40 mg) PO DAILY 45 tabs 1RF 90 days Coding Level of Care Code Est Pt Level 4 (55882) Diagnoses Stage 3b chronic kidney disease N18.32 Chronic kidney disease stage 3 subtype: stage 3b (GFR 30-44) Benign essential hypertension I10 Acute kidney injury N17.9 Results Reviewed Nephrology Results: Hgb 15.4 g/dl (14.0-18.0) 10/17/23 WBC 5.3 X10*3/uL (4.8-10.8) 10/17/23 Plt Count 195 X10*3/uL (160-400) 10/17/23 Sodium 137 mmol/L (135-145) 12/10/23 Potassium 5.1 mmol/L (3.3-5.1) 12/10/23 Chloride 103 mmol/L (96-108) 12/10/23 Carbon Dioxide 25 mmol/L (22-29) 12/10/23 BUN 30 mg/dL (9-16) H 12/10/23 Creatinine 2.07 mg/dL (0.5-1.4) H 12/10/23 Calcium 10.2 mg/dL (8.4-10.2) 12/10/23 Phosphorus 3.2 mg/dL (2.7-4.5) 10/05/23 PTH Intact 63.2 pg/mL (8.7-77.1) 10/05/23 Urine Protein 30 (1+) mg/dL (Neg-Trace) H 12/10/23 Urine Creatinine 203.37 mg/dL 10/17/23 Protein/Creatinin Ratio 0.37 (<0.2) H 10/09/23
== END 2023-12-18 09:47 | disposition home or self-care (01) ==
PROVIDERS: PCP Internal Medicine; Visit Provider Internal Medicine Nephrology
DX: N18.32 Chronic kidney disease, stage 3b (principal); I10 Essential (primary) hypertension; N17.9 Acute kidney failure, unspecified
CPT/HCPCS: 99214

== ENCOUNTER → 2023-12-18 09:19 | Outpatient (BNVA) | payer MEDICARE, SELFPAY | PROVIDERS: PCP Internal Medicine; Visit Provider Internal Medicine Nephrology | DX: I12.9 Hypertensive chronic kidney disease with stage 1 through stage 4 chronic kidney disease, or unspecified chronic kidney disease (principal); N18.32 Chronic kidney disease, stage 3b; N17.9 Acute kidney failure, unspecified | CPT/HCPCS: 99212 ==

== ENCOUNTER 2024-01-25 07:36 | Outpatient (REF) | payer MEDICARE, SELFPAY ==
[2024-01-25 08:41] LABS: Anion Gap 13 (12-20); Blood Urea Nitrogen 26 mg/dL (9-16); Carbon Dioxide 27 mmol/L (22-29); Chloride 101 mmol/L (96-108); Estimated Glomerular Filt Rate 39; Potassium 4.8 mmol/L (3.3-5.1); Sodium 136 mmol/L (135-145)
[2024-01-25 08:54] LABS: Appearance Urine Clear; Color Urine Yellow; Glucose Urine UA >=1000 mg/dL (Negative); Leukocyte Esterase Urine Negative (Negative); Nitrite Urine Negative (Negative); PH 5.5 (5.0-9.0); UMIC TRIGGER UA YES; Urine Blood Negative (Negative); Urine Ketones Negative (Negative); Urine Protein 30 (1+) mg/dL (Neg-Trace)
[2024-01-25 08:58] LABS: Bacteria Urine None Seen (None Seen); Hyaline Casts Urine 0-2 /LPF (0-2); RBC Urine 0-2 /HPF (0-2); Squamous Epithelial Cell Urine 0-2 /HPF (0-2); WBC Urine 0-5 /HPF (0-5)
== END 2024-01-25 07:37 | disposition home or self-care (01) ==
LOC: HO.LAB 07:36
PROVIDERS: PCP Internal Medicine; Visit Provider Internal Medicine Nephrology
DX: I12.9 Hypertensive chronic kidney disease with stage 1 through stage 4 chronic kidney disease, or unspecified chronic kidney disease (principal); E11.22 Type 2 diabetes mellitus with diabetic chronic kidney disease; N18.30 Chronic kidney disease, stage 3 unspecified; N17.9 Acute kidney failure, unspecified; R80.9 Proteinuria, unspecified
CPT/HCPCS: 36415; 80051; 81001; 82565; 84520

== ENCOUNTER 2024-01-31 09:31 | Outpatient (AMB) | payer MEDICARE, SELFPAY ==
[2024-01-31 09:39] VITALS: BP 130/80; PULSE 73; O2SAT 97; BMI 23.3
--- NOTE | 2024-01-31 09:39 | HO.NEPHOV_ITS ---
HPI HPI Comments History of Present Illness Details I had the privilege of seeing Yrn in follow up for management of his chronic kidney disease and hypertension. He has been a diabetic for over 10 years. He is known to have proteinuria. His last hemoglobin A1c has been 6 but lately he is fasting blood sugars have been on the higher side. His blood pressure has been at goal. He does not have any edema. His urine culture was negative. He has some prostatic symptoms. He has never had a renal biopsy. He denies any chest pain, shortness of breath, proximal nocturnal dyspnea, orthopnea, pedal edema, hematuria, epistaxis, photosensitivity, joint swellings, hematemesis, melena. He does not take any nonsteroidal anti-inflammatory medications. He hydrates himself very well. [facility] Medical History Cervical disc herniation Chronic kidney disease (CKD), stage III (moderate) Vitamin D deficiency Gout Lumbar degenerative disc disease Benign essential hypertension Pure hypercholesterolemia Proteinuria, unspecified Type 2 diabetes mellitus with diabetic chronic kidney disease Surgical History History of extraction of renal calculus History of cervical discectomy History of laminectomy Family History Father No problems noted. Mother No problems noted. Brother Diabetes Brother Heart problem Social History Household Members: Spouse Housing: House Alcohol intake: former Patient Tobacco Use Status: Former Tobacco user e-Cigarette/Vaping Use: Never Used Second Hand Smoke Exposure: No service: No Current occupational status: retired Cognitive needs: No Hearing needs: No Vision needs: No Vital Signs 01/31/24 09:39 Height 5 ft 6 in Weight 144 lb 8 oz BMI 23.3 BP 130/80 Blood Pressure Location Lt brachial Position Sitting Pulse 73 Pulse Source Pulse Oximeter Pulse Oximetry (%) 97 Oxygen Delivery Method Room Air Physical Exam Vital Signs: Last Vital Signs Pulse 73 01/31/24 09:39 BP 130/80 01/31/24 09:39 Pulse Ox 97 01/31/24 09:39 Oxygen Delivery Method Room Air 01/31/24 09:39 BMI result Body Mass Index 23.3 Const General: comfortable and no acute distress Orientation/consciousness: patient oriented x3 HEENT Head: Yes normocephalic Mouth: Normal oral and palatal mucosa present Eyes EOM: EOMs intact bilaterally Neck Neck: Yes supple Resp Auscultation: clear to auscultation bilaterally Cardio Jugular venous distension: no JVD Rate: regular rate GI Palpation (GI): Soft to palpation Auscultation: normal bowel sounds General: Yes no CVA tenderness Back/Spine/Pelvis Back: no CVA tenderness Skin General skin exam: no rashes or lesions noted Neuro General: patient oriented x3 and moves all extremities Extrem General: Yes no pedal edema Assessment & Plan Assessment & Plan (1) Chronic kidney disease (CKD), stage III (moderate): Code(s): N18.30 - Chronic kidney disease, stage 3 unspecified Qualifiers: Chronic kidney disease stage 3 subtype: stage 3b (GFR 30-44) Qualified Code(s): N18.32 - Chronic kidney disease, stage 3b (2) Benign essential hypertension: Code(s): I10 - Essential (primary) hypertension (3) Diabetic nephropathy: Code(s): E11.21 - Type 2 diabetes mellitus with diabetic nephropathy Qualifiers: Diabetes mellitus type: type 2 Qualified Code(s): E11.21 - Type 2 diabetes mellitus with diabetic nephropathy Plan 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 He has not had proteinuria. He is on BERT-inhibitor, dose of which has been adjusted the last visit with improvement in renal functions. His serum potassium is normal. His blood pressure is at goal. His last hemoglobin A1c was 6. He hydrates himself well. He never had a renal biopsy. He is taking Jardiance. He may need an alpha reyna if he has ongoing prostatic symptoms. He needs to keep his LDL low. I did not make any other medication changes today. All his questions were answered. Orders: Orders Electrolytes Today E11.21 - Type 2 diabetes mellitus with diabetic nephropathy, I10 - Essential (primary) hypertension, N18.30 - Chronic kidney disease, stage 3 unspecified Creatinine Today E11.21 - Type 2 diabetes mellitus with diabetic nephropathy, I10 - Essential (primary) hypertension, N18.30 - Chronic kidney disease, stage 3 unspecified Blood Urea Nitrogen Today E11.21 - Type 2 diabetes mellitus with diabetic nep hropathy, I10 - Essential (primary) hypertension, N18.30 - Chronic kidney disease, stage 3 unspecified Coding Level of Care Code Est Pt Level 3 (00766) Diagnoses Stage 3b chronic kidney disease N18.32 Chronic kidney disease stage 3 subtype: stage 3b (GFR 30-44) Benign essential hypertension I10 Diabetic nephropathy associated with type 2 diabetes mellitus E11.21 Diabetes mellitus type: type 2 Results Reviewed Nephrology Results: Hgb 15.4 g/dl (14.0-18.0) 10/17/23 WBC 5.3 X10*3/uL (4.8-10.8) 10/17/23 Plt Count 195 X10*3/uL (160-400) 10/17/23 Sodium 136 mmol/L (135-145) 01/25/24 Potassium 4.8 mmol/L (3.3-5.1) 01/25/24 Chloride 101 mmol/L (96-108) 01/25/24 Carbon Dioxide 27 mmol/L (22-29) 01/25/24 BUN 26 mg/dL (9-16) H 01/25/24 Creatinine 1.73 mg/dL (0.5-1.4) H 01/25/24 Calcium 10.2 mg/dL (8.4-10.2) 12/10/23 Phosphorus 3.2 mg/dL (2.7-4.5) 10/05/23 PTH Intact 63.2 pg/mL (8.7-77.1) 10/05/23 Urine Protein 30 (1+) mg/dL (Neg-Trace) H 01/25/24 Urine Creatinine 203.37 mg/dL 10/17/23 Protein/Creatinin Ratio 0.37 (<0.2) H 10/09/23
== END 2024-01-31 09:59 | disposition home or self-care (01) ==
LOC: HO.HKAS 09:31
PROVIDERS: PCP Internal Medicine; Visit Provider Internal Medicine Nephrology
DX: N18.32 Chronic kidney disease, stage 3b (principal); I10 Essential (primary) hypertension; E11.21 Type 2 diabetes mellitus with diabetic nephropathy
CPT/HCPCS: 99213

== ENCOUNTER → 2024-01-31 09:31 | Outpatient (BNVA) | payer MEDICARE, SELFPAY | PROVIDERS: PCP Internal Medicine; Visit Provider Internal Medicine Nephrology | DX: I12.9 Hypertensive chronic kidney disease with stage 1 through stage 4 chronic kidney disease, or unspecified chronic kidney disease (principal); N18.32 Chronic kidney disease, stage 3b | CPT/HCPCS: 99212 ==

== ENCOUNTER 2024-02-12 08:00 | Outpatient (REF) | payer MEDICARE, SELFPAY ==
[2024-02-12 08:17] LABS: MANUAL DIFF FLAG NO
[2024-02-12 08:54] LABS: Basophils Absolute Auto 0.1 X10*3/uL (0.0-0.2); Basophils Percent Auto 0.8 % (0-2); Eosinophils Absolute Auto 0.2 X10*3/uL (0.0-0.4); Eosinophils Percent Auto 2.4 % (0-4); Hematocrit 51.3 % (42.0-52.0); Hemoglobin 16.5 g/dl (14.0-18.0); Imm Gran Abs Auto 0.02 X10*3/uL (0.00-0.03); Imm Gran Pct Auto 0.3 % (0.0-0.4); Lymphocytes Absolute Auto 1.2 X10*3/uL (1.2-4.9); Lymphocytes Percent Auto 18.1 % (20-40); Mean Corpuscular HGB Conc 32.2 g/dl (31.0-36.0); Mean Corpuscular Hemoglobin 27.6 pg (27.0-33.0); Mean Corpuscular Volume 85.8 fL (80.0-98.0); Mean Platelet Volume 9.6 fL (9.4-12.4); Monocytes Absolute Auto 0.4 X10*3/uL (0.1-1.2); Monocytes Percent Auto 6.3 % (2-11); Neutrophils Absolute Auto 4.6 x10*3/uL (2.0-8.3); Neutrophils Percent Auto 72.1 % (45-73); Platelet Count 176 X10*3/uL (160-400); Red Blood Count 5.98 X10*6/uL (4.60-5.80); Red Cell Distribution Width 14.2 % (11.0-16.0); White Blood Count 6.4 X10*3/uL (4.8-10.8)
[2024-02-12 08:59] LABS: Appearance Urine Clear; Color Urine Yellow; Glucose Urine UA >=1000 mg/dL (Negative); Leukocyte Esterase Urine Negative (Negative); Nitrite Urine Negative (Negative); PH 5.5 (5.0-9.0); UMIC TRIGGER UACC YES; Urine Blood Negative (Negative); Urine Ketones Negative (Negative); Urine Protein 30 (1+) mg/dL (Neg-Trace)
[2024-02-12 08:59] LABS: Estimated Average Glucose 137 mg/dL; Hemoglobin A1c % 6.4 % (<6.0)
[2024-02-12 09:05] LABS: Bacteria Urine None Seen (None Seen); Hyaline Casts Urine 0-2 /LPF (0-2); RBC Urine 0-2 /HPF (0-2); Squamous Epithelial Cell Urine 0-2 /HPF (0-2); WBC Urine 0-5 /HPF (0-5)
[2024-02-12 09:34] LABS: Creatinine Urine 29.77 mg/dL; Microalbum/Creatinine Ratio Ur 819.6 ug/mg cr (<30)
[2024-02-12 09:44] LABS: Alanine Aminotransferase 34 U/L (0-40); Albumin Level 4.3 g/dL (3.5-5.0); Alkaline Phosphatase 50 U/L (39-117); Anion Gap 13 (12-20); Aspartate Amino Transferase 31 U/L (5-37); Bilirubin Total 0.6 mg/dL (0.0-1.0); Blood Urea Nitrogen 22 mg/dL (9-16); Calcium 9.9 mg/dL (8.4-10.2); Carbon Dioxide 26 mmol/L (22-29); Chloride 104 mmol/L (96-108); Cholesterol 165 mg/dL (<200); Estimated Glomerular Filt Rate 39; Glucose Fasting 132 mg/dL (60-99); HDL Cholesterol 58 mg/dL (>40); LDL Cholesterol Calculated 87 mg/dL (<100); Potassium 4.4 mmol/L (3.3-5.1); Sodium 139 mmol/L (135-145); Total Protein 7.2 g/dL (6.5-8.0); Triglycerides 103 mg/dL (<150)
[2024-02-12 10:01] LABS: TSH reflex Free T4 3.53 uIU/mL (0.32-4.0); Uric Acid 5.5 mg/dL (3.4-7.0); Vitamin D 25-OH Total 41.8 ng/mL (>30)
== END 2024-02-12 08:01 | disposition home or self-care (01) ==
LOC: HO.LAB 08:00
PROVIDERS: PCP Internal Medicine; Visit Provider Internal Medicine
DX: E55.9 Vitamin D deficiency, unspecified (principal); E11.9 Type 2 diabetes mellitus without complications; E78.00 Pure hypercholesterolemia, unspecified; I10 Essential (primary) hypertension; M10.9 Gout, unspecified; R30.0 Dysuria
CPT/HCPCS: 36415; 80053; 80061; 81001; 82043; 82306; 82570; 83036; 84443; 84550; 85025

== ENCOUNTER 2024-02-20 08:45 | Outpatient (AMB) | payer MEDICARE, SELFPAY ==
[2024-02-20 08:46] VITALS: BP 112/72; PULSE 69; O2SAT 98; BMI 23.2
--- NOTE | 2024-02-20 08:46 | A.OFFPC_ITS ---
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: No Allergies amlodipine Adverse Reaction (Intermediate, Verified 02/20/24 09:08) edema Medication List - Last Reconciled 02/20/24 by Nikhil Knutson MD allopurinol 100 mg PO DAILY 90 days blood sugar diagnostic 1 strip miscellaneous DAILY 30 days cholecalciferol (vitamin D3) 25 mcg PO DAILY empagliflozin (Jardiance) 12.5 mg (1/2 x 25 mg) PO QAM glipizide ER 5 mg PO DAILY hydralazine 50 mg PO TID 90 days labetalol 200 mg PO BID 90 days lisinopril 20 mg (1/2 x 40 mg) PO DAILY 90 days metformin ER 500 mg PO BEDTIME omega-3 fatty acids (Fish Oil Concentrate) 1,000 mg PO DAILY pravastatin 40 mg PO DAILY Tobacco use date assessed: 02/20/24 Fall risk assessment: No Falls in past year Last assessed Fall Risk: 02/20/24 Dental Screening Dental Screen Date: 02/20/24 Did you have a dental visit in the last 12 months?: No Did you have a dental problem in the last 6 months where you did not have access to dental care?: No HPI DM, CKD, HTN, hyperlipidemia, gout HPI Details Patient comes in today for his follow up visit States that he feels okay He denies any headaches or dizziness Denies any chest pains, no SOB No nausea/vomiting, no abdominal pain No change in bowel habits noted Had his follow up labs done last week - to discuss his results [facility] Medical History Cervical disc herniation Chronic kidney disease (CKD), stage III (moderate) Vitamin D deficiency Gout Lumbar degenerative disc disease Benign essential hypertension Pure hypercholesterolemia Proteinuria, unspecified Type 2 diabetes mellitus with diabetic chronic kidney disease Surgical History History of extraction of renal calculus History of cervical discectomy History of laminectomy Family History Father No problems noted. Mother No problems noted. Brother Diabetes Brother Heart problem Social History Household Members: Spouse Housing: House Alcohol intake: former Patient Tobacco Use Status: Former Tobacco user e-Cigarette/Vaping Use: Never Used Second Hand Smoke Exposure: No service: No Current occupational status: retired Cognitive needs: No Hearing needs: No Vision needs: No Questionnaire PHQ-9 Over the last 2 weeks, how often have you been bothered by any of the following problems? 1. Little interest or pleasure in doing things: not at all 2. Feeling down, depressed, or hopeless: not at all 3. Trouble falling or staying asleep, or sleeping too much: not at all 4. Feeling tired or having little energy: not at all 5. Poor appetite or overeating: not at all 6. Feeling bad about yourself - or that you are a failure or have let yourself or your family down: not at all 7. Trouble concentrating on things, such as reading the newspaper or watching television: not at all 8. Moving or speaking so slowly that other people could have noticed. Or the opposite - being so fidgety or restless that you have been moving around a lot more than usual: not at all 9. Thoughts that you would be better off or of hurting yourself in some way: not at all Total score: 0 Depression Screening Interpretation: Negative Depression Screening Done: Yes [id number] - PHQ-9 Billing: Yes Source: Developed by Drs. Tray Benoit, Frannie Tolentino, Jarett Santiago and colleagues, with an educational karlos from [employer]. Thrive Questionnaire Date Thrive assessed: 02/20/24 I am a: Patient What is your living situation today?: I have a steady place to live Within the past 12 months, did the food you bought not last and you didn't have the money to get more?: Never true Within the past 12 months, did you worry whether your food would run out before you got money to buy more?: Never true Do you have trouble paying for medicines?: No Do you have trouble getting transportation to medical appointments?: No Do you have trouble paying your heating and electricity bill?: No Do you have trouble taking care of your child, family member or friend?: No Do you have trouble with day-to-day activities such as bathing, preparing meals, shopping, managing finances, etc.?: No Are you currently unemployed and looking for a job?: No Are you interested in more education?: No Please select the resources that you would like help with: None Currently or been in a relationship where the following occur: no concerns reported THRIVE Score: 0 AUDIT C Alcohol Use Questionnaire (AUDIT-C) 1. How often do you have a drink containing alcohol?: Never 3. How often do you have six or more drinks on one occasion?: Never Total Score: 0 Score Reviewed/Action Taken: Yes PB-7 AMB Questionnaire PB-7 Date PB - 7 assessed: 02/20/24 Feeling nervous, anxious, or on edge: 0 = Not at all Not being able to stop or control worryin = Not at all Worrying too much about different things: 0 = Not at all Trouble relaxin = Not at all Being so restless that it is hard to sit still: 0 = Not at all Becoming easily annoyed or irritable: 0 = Not at all Feeling afraid as if something awful might happen: 0 = Not at all Total PB-7 score (0-4 normal; 5-9 mild; 10-14 moderate; 15-21 severe): 0 Source: Developed by Drs. Tray Benoit, Frannie Tolentino, Jarett Santiago and colleagues, with an educational karlos from [employer]. PB-7 Assessment Billing PB-7 Assessment Tool: PB-7 Assessment 61589 Review of Systems Const Denies chills, Denies fatigue, Denies fever(s) and Denies headache(s) ENT Denies dysphagia, Denies dizziness, Denies otalgia, Denies headache(s), Reports neck pain (chronic), Denies odynophagia and Denies sore throat Card Denies chest pain, Denies palpitations and Denies dyspnea Resp Denies chest congestion, Denies cough and Denies dyspnea GI Denies abdominal pain, Denies constipation, Denies dysphagia, Denies heartburn, Denies diarrhea, Denies nausea, Denies odynophagia and Denies vomiting Denies dysuria, Denies nocturia, Denies urinary frequency and Denies urinary hesitancy Musc Details: (+) recurrent pain in both feet Reports back pain (over the lower back - chronic) and Reports neck pain (chronic) Skin/Breast Denies rash Neuro Denies dizziness and Denies headache(s) Endo Denies fatigue and Denies palpitations Physical exam (Primary Care) Vital Signs: Last Vital Signs Pulse 69 02/20/24 08:46 BP 112/72 02/20/24 08:46 Pulse Ox 98 02/20/24 08:46 Oxygen Delivery Method Room Air 02/20/24 08:46 BMI result Body Mass Index 23.2 Tobacco/Smoking Status: Tobacco use Status Tobacco use date assessed 02/20/24 02/20/24 08:48 Patient Tobacco Use Status Former Tobacco user 02/20/24 08:48 e-Cigarette/Vaping Use Never Used 02/20/24 08:48 PHQ-9: PHQ-9 Score PHQ-9: Total score 0 02/20/24 08:48 Depression Screening Interpretation: Negative Thrive Assessment: Date of Thrive Assessment Date Thrive assessed 02/20/24 02/20/24 08:48 Currently or been in a relationship where the following occur: no concerns reported Const General: no acute distress and alert HENMT Ears: TM's normal bilaterally and EAC's normal Throat: Yes posterior oropharynx normal and Yes tonsils normal (no TP congestion noted) Neck Neck: Yes no lymphadenopathy and Yes tender Thyroid: Thyroid normal Resp Auscultation: clear to auscultation bilaterally, no rales and no wheezes Cardio Rate: regular rate Rhythm: regular rhythm Heart sounds: no murmurs GI Palpation (GI): Soft to palpation and nontender Auscultation: normal bowel sounds General: Yes no CVA tenderness Back/Spine/Pelvis Back: no CVA tenderness Cervical Spine: Cervical spine tenderness Thoracic/Lumbar Spine: lumbar spinal tenderness Skin Rashes: no rashes Neuro Motor exam (neuro): Abnormal motor strength present left lower extremity other 3 / 5 Extrem General: Yes no clubbing, cyanosis or edema Results Reviewed Results Reviewed: Laboratory Tests 02/12/24 02/12/24 08:12 08:16 WBC 6.4 Hgb 16.5 Hct 51.3 Plt Count 176 Sodium 139 Potassium 4.4 Creatinine 1.73 H Estimated GFR 39 Fasting Glucose 132 H Hemoglobin A1c % 6.4 H Uric Acid 5.5 Calcium 9.9 AST 31 ALT 34 Triglycerides 103 Cholesterol 165 LDL Cholesterol, Calc 87 HDL Cholesterol 58 25-OH Vitamin D Total 41.8 TSH 3.53 Ur Specific [place] 1.010 Urine Protein 30 (1+) H Urine Glucose (UA) >=1000 H Urine Blood Negative Urine Nitrite Negative Ur Leukocyte Esterase Negative Microalb/Creat Ratio 819.6 H Assessment and Plan Assessment & Plan (1) Pure hypercholesterolemia: Code(s): E78.00 - Pure hypercholesterolemia, unspecified Plan: Results of his labs done last week reviewed and discussed with patient Reinforced low cholesterol diet Continue Pravastatin 40 mg QD Will recheck his labs and fasting lipids in 4 months for follow up (2) Type 2 diabetes mellitus with diabetic chronic kidney disease: Code(s): E11.22 - Type 2 diabetes mellitus with diabetic chronic kidney disease Qualifiers: Diabetes mellitus skilled nursing insulin use: without long haul truck driver use Chronic kidney disease stage: stage 3 (moderate) Chronic kidney disease stage 3 subtype: stage 3a (GFR 45-59) Qualified Code(s): E11.22 - Type 2 diabetes mellitus with diabetic chronic kidney disease; N18.31 - Chronic kidney disease, stage 3a Plan: HgbA1c was at 6.4% on his labs done last week (was also at 6.4% a few months ago) - goal is <7.0% Reinforced diabetic diet Continue Metformin ER 500 mg QD, Glipizide ER 5 mg QD and Jardiance 25 mg 1/2 tablets (12.5 mg) QD - he reports increased urinary frequency when he was on 25 mg of Jardiance, which he finds very uncomfortable (3) Chronic kidney disease (CKD), stage III (moderate): Code(s): N18.30 - Chronic kidney disease, stage 3 unspecified Qualifiers: Chronic kidney disease stage 3 subtype: stage 3b (GFR 30-44) Qualified Code(s): N18.32 - Chronic kidney disease, stage 3b Plan: His serum creatinine and GFR have remained stable on his recent labs Follow up with Dr. Vanegas as scheduled for nephrology follow up We will continue to monitor his renal function closely (4) Proteinuria, unspecified: Code(s): R80.9 - Proteinuria, unspecified Qualifiers: Proteinuria type: unspecified Qualified Code(s): R80.9 - Proteinuria, unspecified Plan: Stable - advised again that his proteinuria actually has improved somewhat lately as his urine microalbumin level has improved a lot from before Will continue to monitor these regularly (5) Benign essential hypertension: Code(s): I10 - Essential (primary) hypertension Plan: Reinforced low sodium diet - goal is systolic BP of at least 130 mm or less BP has been better controlled lately Continue Lisinopril 20 mg QD (dose was reduced by nephrology due to his declining renal function then, which has since stabilized), Hydralazine 50 mg TID and Labetalol 200 mg BID (6) Lumbar degenerative disc disease: Code(s): M51.36 - Other intervertebral disc degeneration, lumbar region Plan: Reinforced activity and weight-lifting restrictions Follow up with [facility] as scheduled - states that he gets back injections when needed, which provides him with significant relief of his low back pains (7) Cervical disc herniation: Comment: C6-C7 - S/P discectomy Code(s): M50.20 - Other cervical disc displacement, unspecified cervical region Plan: States that his neck pain has been mostly manageable and he does not need anything else done at this time (8) Vitamin D deficiency: Code(s): E55.9 - Vitamin D deficiency, unspecified Plan: Continue Vitamin D3 1000 units QD (9) Gout: Code(s): M10.9 - Gout, unspecified Qualifiers: Gout site: unspecified site Gout etiology: idiopathic Chronicity: unspecified Qualified Code(s): M10.00 - Idiopathic gout, unspecified site Plan: Reinforced low purine diet Serum uric acid has remained normal on his recent labs Continue Allopurinol 100 mg QD Plan Follow up in 4 months Orders: Orders Complete Blood Count Auto Diff 4 Months D64.9 - Anemia, unspecified Lipid Panel 4 Months E78.00 - Pure hypercholesterolemia, unspecified Uric Acid 4 Months M10.9 - Gout, unspecified UA CC w/rflx Micro + Cult 4 Months R30.0 - Dysuria Hemoglobin A1c 4 Months E11.9 - Type 2 diabetes mellitus without complications Vitamin D 25-OH Total 4 Months E55.9 - Vitamin D deficiency, unspecified Comprehensive [place]. Panel Fast 4 Months E78.00 - Pure hypercholesterolemia, unspecified TSH reflex Free T4 4 Months E78.00 - Pure hypercholesterolemia, unspecified Microalbumin, Random (w Creat) 4 Months E11.9 - Type 2 diabetes mellitus without complications Coding Level of Care Code Est Pt Level 4 (00408) Diagnoses Pure hypercholesterolemia E78.00 Type 2 diabetes mellitus with stage 3a chronic kidney disease, without long-term current use of insulin E11.22; N18.31 Diabetes mellitus skilled nursing insulin use: without long haul truck driver use Chronic kidney disease stage: stage 3 (moderate) Chronic kidney disease stage 3 subtype: stage 3a (GFR 45-59) Stage 3b chronic kidney disease N18.32 Chronic kidney disease stage 3 subtype: stage 3b (GFR 30-44) Proteinuria, unspecified type R80.9 Proteinuria type: unspecified Benign essential hypertension I10 Lumbar degenerative disc disease M51.36 Cervical disc herniation M50.20 Vitamin D deficiency E55.9 Idiopathic gout, unspecified chronicity, unspecified site M10.00 Gout site: unspecified site Gout etiology: idiopathic Chronicity: unspecified Additional Codes PB-7 Assessment Billing - PB-7 Assessment Tool: PB-7 Assessment [id number] ([id number])
== END 2024-02-20 09:23 | disposition home or self-care (01) ==
PROVIDERS: PCP Internal Medicine; Visit Provider Internal Medicine
DX: E78.00 Pure hypercholesterolemia, unspecified (principal); I12.9 Hypertensive chronic kidney disease with stage 1 through stage 4 chronic kidney disease, or unspecified chronic kidney disease; E11.22 Type 2 diabetes mellitus with diabetic chronic kidney disease; N18.32 Chronic kidney disease, stage 3b; R80.9 Proteinuria, unspecified; M51.36 Other intervertebral disc degeneration, lumbar region; M50.20 Other cervical disc displacement, unspecified cervical region; E55.9 Vitamin D deficiency, unspecified; M10.00 Idiopathic gout, unspecified site
CPT/HCPCS: 99214

== ENCOUNTER 2024-04-21 06:04 | Outpatient (REF) | payer MEDICARE, SELFPAY ==
[2024-04-21 08:18] LABS: Appearance Urine Clear; Color Urine Yellow; Glucose Urine UA >=1000 mg/dL (Negative); Leukocyte Esterase Urine Negative (Negative); Nitrite Urine Negative (Negative); PH 5.5 (5.0-9.0); UMIC TRIGGER UA YES; Urine Blood Negative (Negative); Urine Ketones Negative (Negative); Urine Protein 30 (1+) mg/dL (Neg-Trace)
[2024-04-21 08:25] LABS: Bacteria Urine None Seen (None Seen); Hyaline Casts Urine 0-2 /LPF (0-2); RBC Urine 0-2 /HPF (0-2); Squamous Epithelial Cell Urine 0-2 /HPF (0-2); WBC Urine 0-5 /HPF (0-5)
[2024-04-21 08:28] LABS: Anion Gap 14 (12-20); Blood Urea Nitrogen 25 mg/dL (9-16); Carbon Dioxide 24 mmol/L (22-29); Chloride 105 mmol/L (96-108); Estimated Glomerular Filt Rate 44; Potassium 4.4 mmol/L (3.3-5.1); Sodium 139 mmol/L (135-145)
== END 2024-04-21 06:05 | disposition home or self-care (01) ==
LOC: HO.LAB 06:04
PROVIDERS: PCP Internal Medicine; Visit Provider Internal Medicine Nephrology
DX: E11.21 Type 2 diabetes mellitus with diabetic nephropathy (principal); N18.30 Chronic kidney disease, stage 3 unspecified; I10 Essential (primary) hypertension
CPT/HCPCS: 36415; 80051; 81001; 81003; 82565; 84520

== ENCOUNTER 2024-04-29 10:48 | Outpatient (AMB) | payer MEDICARE, SELFPAY ==
--- NOTE | 2024-04-29 10:57 | HO.NEPHOV_ITS ---
Vital Signs 04/29/24 10:58 Height 5 ft 6 in Weight 147 lb 6 oz BMI 23.8 BP 130/80 Blood Pressure Location Lt brachial Position Sitting Pulse 70 Pulse Source Pulse Oximeter Pulse Oximetry (%) 96 Oxygen Delivery Method Room Air Intake Visit Reasons: 6 weeks follow up/ Conf Radio Frequency Engineer Required: No Accompanied by: Self / Same As Patient Allergies amlodipine Adverse Reaction (Intermediate, Verified 04/29/24 11:00) edema HPI Comments Details: I had the privilege of seeing Yrn in follow up for management of his chronic kidney disease and hypertension. He has been a diabetic for over 10 years. He is known to have proteinuria. His blood pressure has been at goal. He does not have any edema. He has some prostatic symptoms. He has never had a renal biopsy. He denies any chest pain, shortness of breath, proximal nocturnal dyspnea, orthopnea, pedal edema, hematuria, epistaxis, photosensitivity, joint swellings, hematemesis, melena. He does not take any nonsteroidal anti- inflammatory medications. He hydrates himself very well. FORMERLY [facility] Medical History Cervical disc herniation Chronic kidney disease (CKD), stage III (moderate) Vitamin D deficiency Gout Lumbar degenerative disc disease Benign essential hypertension Pure hypercholesterolemia Proteinuria, unspecified Type 2 diabetes mellitus with diabetic chronic kidney disease Surgical History History of extraction of renal calculus History of cervical discectomy History of laminectomy Family History Father No problems noted. Mother No problems noted. Brother Diabetes Brother Heart problem Social History Household Members: Spouse Housing: House Alcohol intake: former Patient Tobacco Use Status: Former Tobacco user e-Cigarette/Vaping Use: Never Used Second Hand Smoke Exposure: No service: No Current occupational status: retired Cognitive needs: No Hearing needs: No Vision needs: No Physical Exam Vital Signs: Last Vital Signs Pulse 70 04/29/24 10:58 BP 138/80 04/29/24 10:58 Pulse Ox 96 04/29/24 10:58 Oxygen Delivery Method Room Air 04/29/24 10:58 BMI result Body Mass Index 23.8 Const General: comfortable and no acute distress Orientation/consciousness: patient oriented x3 HEENT Head: Yes normocephalic Mouth: Normal oral and palatal mucosa present Eyes EOM: EOMs intact bilaterally Neck Neck: Yes supple Resp Auscultation: clear to auscultation bilaterally Cardio Jugular venous distension: no JVD Rate: regular rate GI Palpation (GI): Soft to palpation Auscultation: normal bowel sounds General: Yes no CVA tenderness Back/Spine/Pelvis Back: no CVA tenderness Skin General skin exam: no rashes or lesions noted Neuro General: patient oriented x3 and moves all extremities Extrem General: Yes no pedal edema Results Reviewed Nephrology Results: Hgb 16.5 g/dl (14.0-18.0) 02/12/24 WBC 6.4 X10*3/uL (4.8-10.8) 02/12/24 Plt Count 176 X10*3/uL (160-400) 02/12/24 Sodium 139 mmol/L (135-145) 04/21/24 Potassium 4.4 mmol/L (3.3-5.1) 04/21/24 Chloride 105 mmol/L (96-108) 04/21/24 Carbon Dioxide 24 mmol/L (22-29) 04/21/24 BUN 25 mg/dL (9-16) H 04/21/24 Creatinine 1.58 mg/dL (0.5-1.4) H 04/21/24 Calcium 9.9 mg/dL (8.4-10.2) 02/12/24 Urine Protein 30 (1+) mg/dL (Neg-Trace) H 04/21/24 Urine Creatinine 29.77 mg/dL 02/12/24 Assessment & Plan Assessment & Plan (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 Category: Medical Qualifiers: Diabetes mellitus type: type 2 Qualified Code(s): E11.21 - Type 2 diabetes mellitus with diabetic nephropathy (2) Chronic kidney disease (CKD), stage III (moderate): Code(s): N18.30 - Chronic kidney disease, stage 3 unspecified Category: Medical Qualifiers: Chronic kidney disease stage 3 subtype: stage 3b (GFR 30-44) Qualified Code(s): N18.32 - Chronic kidney disease, stage 3b (3) Hypertension: Code(s): I10 - Essential (primary) hypertension Category: Medical Qualifiers: Hypertension type: primary hypertension Qualified Code(s): I10 - Essential (primary) hypertension Qasim Pool 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 He has not had proteinuria. He is on BERT-inhibitor, dose of which has been adjusted the last visit with improvement in renal functions. His serum potassium is normal. His blood pressure is at goal. His last hemoglobin A1c was 6. He hydrates himself well. He never had a renal biopsy. He is taking Jardiance. He may need an alpha reyna if he has ongoing prostatic symptoms. He needs to keep his LDL low. I did not make any other medication changes today. All his questions were answered. Orders: Orders Creatinine Today E11.21 - Type 2 diabetes mellitus with diabetic nephropathy, I10 - Essential (primary) hypertension, N18.32 - Chronic kidney disease, stage 3b Electrolytes Today E11.21 - Type 2 diabetes mellitus with diabetic nephropathy, I10 - Essential (primary) hypertension, N18.32 - Chronic kidney disease, stage 3b Blood Urea Nitrogen Today E11.21 - Type 2 diabetes mellitus with diabetic nephropathy, I10 - Essential (primary) hypertension, N18.32 - Chronic kidney disease, stage 3b Coding Level of Care Code Est Pt Level 4 (75749) Diagnoses Diabetic nephropathy associated with type 2 diabetes mellitus E11.21 Diabetes mellitus type: type 2 Stage 3b chronic kidney disease N18.32 Chronic kidney disease stage 3 subtype: stage 3b (GFR 30-44) Primary hypertension I10 Hypertension type: primary hypertension
[2024-04-29 10:58] VITALS: BP 130/80; PULSE 70; O2SAT 96; BMI 23.8
== END 2024-04-29 11:19 | disposition home or self-care (01) ==
PROVIDERS: PCP Internal Medicine; Visit Provider Internal Medicine Nephrology
DX: E11.21 Type 2 diabetes mellitus with diabetic nephropathy (principal); N18.32 Chronic kidney disease, stage 3b; I10 Essential (primary) hypertension
CPT/HCPCS: 99214

== ENCOUNTER → 2024-04-29 10:48 | Outpatient (BNVA) | payer MEDICARE, SELFPAY | PROVIDERS: PCP Internal Medicine; Visit Provider Internal Medicine Nephrology | DX: E11.21 Type 2 diabetes mellitus with diabetic nephropathy (principal); E11.22 Type 2 diabetes mellitus with diabetic chronic kidney disease; I11.0 Hypertensive heart disease with heart failure; N18.32 Chronic kidney disease, stage 3b | CPT/HCPCS: 99212 ==

== ENCOUNTER 2024-07-01 06:12 | Outpatient (REF) | payer MEDICARE, SELFPAY ==
[2024-07-01 06:38] LABS: MANUAL DIFF FLAG NO
[2024-07-01 07:13] LABS: Basophils Absolute Auto 0.1 X10*3/uL (0.0-0.2); Basophils Percent Auto 0.6 % (0-2); Eosinophils Absolute Auto 0.1 X10*3/uL (0.0-0.4); Eosinophils Percent Auto 1.8 % (0-4); Hematocrit 50.1 % (42.0-52.0); Hemoglobin 16.2 g/dl (14.0-18.0); Imm Gran Abs Auto 0.02 X10*3/uL (0.00-0.03); Imm Gran Pct Auto 0.3 % (0.0-0.4); Lymphocytes Percent Auto 12.7 % (20-40); Mean Corpuscular HGB Conc 32.3 g/dl (31.0-36.0); Mean Corpuscular Hemoglobin 27.4 pg (27.0-33.0); Mean Corpuscular Volume 84.6 fL (80.0-98.0); Mean Platelet Volume 9.6 fL (9.4-12.4); Monocytes Absolute Auto 0.5 X10*3/uL (0.1-1.2); Neutrophils Absolute Auto 6.1 x10*3/uL (2.0-8.3); Neutrophils Percent Auto 78.6 % (45-73); Platelet Count 191 X10*3/uL (160-400); Red Blood Count 5.92 X10*6/uL (4.60-5.80); Red Cell Distribution Width 13.9 % (11.0-16.0); White Blood Count 7.8 X10*3/uL (4.8-10.8)
[2024-07-01 07:48] LABS: Estimated Average Glucose 134 mg/dL; Hemoglobin A1c % 6.3 % (<6.0)
[2024-07-01 07:52] LABS: Alanine Aminotransferase 28 U/L (0-40); Albumin Level 4.2 g/dL (3.5-5.0); Alkaline Phosphatase 55 U/L (39-117); Anion Gap 13 (12-20); Aspartate Amino Transferase 28 U/L (5-37); Bilirubin Total 0.5 mg/dL (0.0-1.0); Blood Urea Nitrogen 24 mg/dL (9-16); Carbon Dioxide 26 mmol/L (22-29); Chloride 105 mmol/L (96-108); Cholesterol 175 mg/dL (<200); Estimated Glomerular Filt Rate 42; Glucose Fasting 145 mg/dL (60-99); HDL Cholesterol 56 mg/dL (>40); LDL Cholesterol Calculated 95 mg/dL (<100); Potassium 4.7 mmol/L (3.3-5.1); Sodium 139 mmol/L (135-145); Total Protein 7.2 g/dL (6.5-8.0); Triglycerides 121 mg/dL (<150); Uric Acid 5.5 mg/dL (3.4-7.0)
[2024-07-01 08:01] LABS: TSH reflex Free T4 3.45 uIU/mL (0.32-4.0)
[2024-07-01 08:49] LABS: Appearance Urine Clear; Color Urine Yellow; Glucose Urine UA >=1000 mg/dL (Negative); Leukocyte Esterase Urine Negative (Negative); Nitrite Urine Negative (Negative); PH 5.5 (5.0-9.0); Specific Gravity - Urine 1.025 (1.005-1.025); UMIC TRIGGER UACC YES; Urine Blood Negative (Negative); Urine Ketones Negative (Negative); Urine Protein 100 (2+) mg/dL (Neg-Trace)
[2024-07-01 08:55] LABS: Bacteria Urine None Seen (None Seen); Hyaline Casts Urine 0-2 /LPF (0-2); RBC Urine 0-2 /HPF (0-2); Squamous Epithelial Cell Urine 0-2 /HPF (0-2); WBC Urine 0-5 /HPF (0-5)
[2024-07-01 09:27] LABS: Microalbum/Creatinine Ratio Ur 1024.6 ug/mg cr (<30)
== END 2024-07-01 06:13 | disposition home or self-care (01) ==
LOC: HO.LAB 06:12
PROVIDERS: PCP Internal Medicine; Visit Provider Internal Medicine
DX: D64.9 Anemia, unspecified (principal); E78.00 Pure hypercholesterolemia, unspecified; M10.9 Gout, unspecified; E55.9 Vitamin D deficiency, unspecified; E11.9 Type 2 diabetes mellitus without complications
CPT/HCPCS: 36415; 80053; 80061; 81001; 82043; 82306; 82570; 83036; 84443; 84550; 85025

== ENCOUNTER 2024-07-11 09:13 | Outpatient (AMB) | payer MEDICARE, SELFPAY ==
[2024-07-11 09:23] VITALS: BP 120/72; PULSE 76; O2SAT 98; BMI 23.2
--- NOTE | 2024-07-11 09:23 | A.OFFPC_ITS ---
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: No Accompanied by: Self / Same As Patient Allergies amlodipine Adverse Reaction (Intermediate, Verified 07/11/24 10:23) edema Medication List - Last Reconciled 07/11/24 by Nikhil Knutson MD allopurinol 100 mg PO DAILY 90 days blood sugar diagnostic 1 strip miscellaneous DAILY 30 days cholecalciferol (vitamin D3) 25 mcg PO DAILY empagliflozin (Jardiance) 12.5 mg (1/2 x 25 mg) PO QAM glipizide ER 5 mg PO DAILY hydralazine 50 mg PO TID 90 days labetalol 200 mg PO BID 90 days lisinopril 20 mg (1/2 x 40 mg) PO DAILY 90 days metformin ER 500 mg PO BEDTIME omega-3 fatty acids (Fish Oil Concentrate) 1,000 mg PO DAILY pravastatin 40 mg PO DAILY Tobacco use date assessed: 07/11/24 Fall risk assessment: No Falls in past year Last assessed Fall Risk: 07/11/24 Dental Screening Dental Screen Date: 07/11/24 Did you have a dental visit in the last 12 months?: Yes Did you have a dental problem in the last 6 months where you did not have access to dental care?: No Was dental information given to patient?: Patient has dentist HPI DM, hyperlipidemia, HTN, CKD - see comments HPI Details Patient comes in today for his follow up visit States that he feels okay and has not had any acute issues since his last visit He denies any headaches or dizziness Denies any chest pains, no SOB No nausea/vomiting, no abdominal pain No change in bowel habits noted He had his follow up labs done last week - to discuss his results [facility] Medical History Cervical disc herniation Chronic kidney disease (CKD), stage III (moderate) Vitamin D deficiency Gout Lumbar degenerative disc disease Benign essential hypertension Pure hypercholesterolemia Proteinuria, unspecified Type 2 diabetes mellitus with diabetic chronic kidney disease Surgical History History of extraction of renal calculus History of cervical discectomy History of laminectomy Family History Father No problems noted. Mother No problems noted. Brother Diabetes Brother Heart problem Social History Household Members: Spouse Housing: House Alcohol intake: former Patient Tobacco Use Status: Former Tobacco user e-Cigarette/Vaping Use: Never Used Second Hand Smoke Exposure: No service: No Current occupational status: retired Cognitive needs: No Hearing needs: No Vision needs: No Questionnaire PHQ-9 Over the last 2 weeks, how often have you been bothered by any of the following problems? 1. Little interest or pleasure in doing things: not at all 2. Feeling down, depressed, or hopeless: not at all 3. Trouble falling or staying asleep, or sleeping too much: not at all 4. Feeling tired or having little energy: not at all 5. Poor appetite or overeating: not at all 6. Feeling bad about yourself - or that you are a failure or have let yourself or your family down: not at all 7. Trouble concentrating on things, such as reading the newspaper or watching television: not at all 8. Moving or speaking so slowly that other people could have noticed. Or the opposite - being so fidgety or restless that you have been moving around a lot more than usual: not at all 9. Thoughts that you would be better off or of hurting yourself in some way: not at all Total score: 0 Depression Screening Interpretation: Negative Depression Screening Done: Yes 26694 - PHQ-9 Billing: Yes Source: Developed by Drs. Tray Benoit, Frannie Tolentino, Jarett Santiago and colleagues, with an educational karlos from [employer]. Thrive Questionnaire Date Thrive assessed: 07/11/24 I am a: Patient What is your living situation today?: I have a steady place to live Within the past 12 months, did the food you bought not last and you didn't have the money to get more?: Never true Within the past 12 months, did you worry whether your food would run out before you got money to buy more?: Never true Do you have trouble paying for medicines?: No Do you have trouble getting transportation to medical appointments?: No Do you have trouble paying your heating and electricity bill?: No Do you have trouble taking care of your child, family member or friend?: No Do you have trouble with day-to-day activities such as bathing, preparing meals, shopping, managing finances, etc.?: No Are you currently unemployed and looking for a job?: No Are you interested in more education?: No Please select the resources that you would like help with: None Currently or been in a relationship where the following occur: No concerns reported THRIVE Score: 0 AUDIT C Alcohol Use Questionnaire (AUDIT-C) 1. How often do you have a drink containing alcohol?: Never 3. How often do you have six or more drinks on one occasion?: Never Total Score: 0 Score Reviewed/Action Taken: Yes PB-7 AMB Questionnaire PB-7 Date PB - 7 assessed: 07/11/24 Feeling nervous, anxious, or on edge: 0 = Not at all Not being able to stop or control worryin = Not at all Worrying too much about different things: 0 = Not at all Trouble relaxin = Not at all Being so restless that it is hard to sit still: 0 = Not at all Becoming easily annoyed or irritable: 0 = Not at all Feeling afraid as if something awful might happen: 0 = Not at all Total PB-7 score (0-4 normal; 5-9 mild; 10-14 moderate; 15-21 severe): 0 Source: Developed by Drs. Tray Benoit, Frannie Tolentino, Jarett Santiago and colleagues, with an educational karlos from [employer]. PB-7 Assessment Billing PB-7 Assessment Tool: PB-7 Assessment [id number] Review of Systems Const Denies chills, Denies fatigue, Denies fever(s) and Denies headache(s) ENT Denies dysphagia, Denies dizziness, Denies otalgia, Denies headache(s), Reports neck pain (chronic but is mostly manageable), Denies odynophagia and Denies sore throat Card Denies chest pain, Denies palpitations and Denies dyspnea Resp Denies chest congestion, Denies cough and Denies dyspnea GI Denies abdominal pain, Denies constipation, Denies dysphagia, Denies heartburn, Denies diarrhea, Denies nausea, Denies odynophagia and Denies vomiting Denies dysuria, Denies nocturia, Denies urinary frequency and Denies urinary hesitancy Musc Details: (+) recurrent pain in both feet Reports back pain (over the lower back - chronic) and Reports neck pain (chronic but is mostly manageable) Skin/Breast Denies rash Neuro Denies dizziness and Denies headache(s) Endo Denies fatigue and Denies palpitations Physical exam (Primary Care) Vital Signs: Last Vital Signs Pulse 76 07/11/24 09:23 BP 120/72 07/11/24 09:23 Pulse Ox 98 07/11/24 09:23 Oxygen Delivery Method Room Air 07/11/24 09:23 BMI result Body Mass Index 23.2 Tobacco/Smoking Status: Tobacco use Status Tobacco use date assessed 07/11/24 07/11/24 09:24 Patient Tobacco Use Status Former Tobacco user 07/11/24 09:24 e-Cigarette/Vaping Use Never Used 07/11/24 09:24 PHQ-9: PHQ-9 Score PHQ-9: Total score 0 07/11/24 09:34 Depression Screening Interpretation: Negative Thrive Assessment: Date of Thrive Assessment Date Thrive assessed 07/11/24 07/11/24 09:24 Currently or been in a relationship where the following occur: No concerns reported Const General: no acute distress and alert HENMT Ears: TM's normal bilaterally and EAC's normal Throat: Yes posterior oropharynx normal and Yes tonsils normal (no TP congestion noted) Neck Neck: Yes no lymphadenopathy and Yes tender Thyroid: Thyroid normal Resp Auscultation: clear to auscultation bilaterally, no rales and no wheezes Cardio Rate: regular rate Rhythm: regular rhythm Heart sounds: no murmurs GI Palpation (GI): Soft to palpation and nontender Auscultation: normal bowel sounds General: Yes no CVA tenderness Back/Spine/Pelvis Back: no CVA tenderness Cervical Spine: Cervical spine tenderness Thoracic/Lumbar Spine: lumbar spinal tenderness Skin Rashes: no rashes Neuro Motor exam (neuro): Abnormal motor strength present left lower extremity other 3 / 5 Extrem General: Yes no clubbing, cyanosis or edema Results Reviewed Results Reviewed: Laboratory Tests 07/01/24 07/01/24 06:28 06:35 WBC 7.8 Hgb 16.2 Hct 50.1 Plt Count 191 Sodium 139 Potassium 4.7 Creatinine 1.64 H Estimated GFR 42 Fasting Glucose 145 H Hemoglobin A1c % 6.3 H Uric Acid 5.5 Calcium 10.0 AST 28 ALT 28 Triglycerides 121 Cholesterol 175 LDL Cholesterol, Calc 95 HDL Cholesterol 56 25-OH Vitamin D Total 43.0 TSH 3.45 Urine Protein 100 (2+) H Urine Glucose (UA) >=1000 H Urine Blood Negative Urine Nitrite Negative Ur Leukocyte Esterase Negative Microalb/Creat Ratio 1024.6 H Assessment and Plan Assessment & Plan (1) Pure hypercholesterolemia: Code(s): E78.00 - Pure hypercholesterolemia, unspecified Plan: Results of his labs done last week reviewed and discussed with patient Reinforced low cholesterol diet Continue Pravastatin 40 mg QD Will recheck his labs and fasting lipids in 4 months for follow up (2) Type 2 diabetes mellitus with diabetic chronic kidney disease: Code(s): E11.22 - Type 2 diabetes mellitus with diabetic chronic kidney disease Qualifiers: Diabetes mellitus retirement insulin use: without adjunct faculty for medical terminology use Chronic kidney disease stage: stage 3 (moderate) Chronic kidney disease stage 3 subtype: stage 3a (GFR 45-59) Qualified Code(s): E11.22 - Type 2 diabetes mellitus with diabetic chronic kidney disease; N18.31 - Chronic kidney disease, stage 3a Plan: His HgbA1c was at 6.3% on his labs done last week (was at 6.4% a few months ago) - goal is <7.0% Reinforced diabetic diet Continue Metformin ER 500 mg QD, Glipizide ER 5 mg QD and Jardiance 25 mg 1/2 tablets (12.5 mg) QD - he reports increased urinary frequency when he was on 25 mg of Jardiance, which he finds very uncomfortable but has been doing well on the reduced 12.5 mg dose so far (3) Chronic kidney disease (CKD), stage III (moderate): Code(s): N18.30 - Chronic kidney disease, stage 3 unspecified Qualifiers: Chronic kidney disease stage 3 subtype: stage 3b (GFR 30-44) Qualified Code(s): N18.32 - Chronic kidney disease, stage 3b Plan: His serum creatinine and GFR have remained stable on his recent labs We will continue to monitor his renal function closely Follow up with Dr. Vanegas as scheduled for nephrology follow up (4) Proteinuria, unspecified: Code(s): R80.9 - Proteinuria, unspecified Qualifiers: Proteinuria type: unspecified Qualified Code(s): R80.9 - Proteinuria, unspecified Plan: Stable Will continue to monitor his renal function regularly (5) Benign essential hypertension: Code(s): I10 - Essential (primary) hypertension Plan: Reinforced low sodium diet - goal is systolic BP of at least 130 mm or less His BP has been much better controlled lately Continue Lisinopril 20 mg QD (dose was reduced by nephrology due to his declining renal function then, which has since stabilized), Hydralazine 50 mg TID and Labetalol 200 mg BID (6) Lumbar degenerative disc disease: Code(s): M51.36 - Other intervertebral disc degeneration, lumbar region Plan: Reinforced activity and weight-lifting restrictions Follow up with [facility] as scheduled - states that he gets back injections when needed, which provides him with significant relief of his low back pains (7) Cervical disc herniation: Comment: C6-C7 - S/P discectomy Code(s): M50.20 - Other cervical disc displacement, unspecified cervical region Plan: States that his neck pain has been mostly manageable and he does not need anything else done at this time (8) Vitamin D deficiency: Code(s): E55.9 - Vitamin D deficiency, unspecified Plan: Continue Vitamin D3 1000 units QD (9) Gout: Code(s): M10.9 - Gout, unspecified Qualifiers: Gout site: unspecified site Gout etiology: idiopathic Chronicity: unspecified Qualified Code(s): M10.00 - Idiopathic gout, unspecified site Plan: Reinforced low purine diet Serum uric acid has remained normal on his recent labs Continue Allopurinol 100 mg QD Plan Follow up in 4 months Orders: Orders UA CC w/rflx Micro + Cult 4 Months R30.0 - Dysuria Comprehensive [place]. Panel Fast 4 Months E78.00 - Pure hypercholesterolemia, unspecified Hemoglobin A1c 4 Months E11.9 - Type 2 diabetes mellitus without complications Lipid Panel 4 Months E78.00 - Pure hypercholesterolemia, unspecified Microalbumin, Random (w Creat) 4 Months E11.9 - Type 2 diabetes mellitus without complications TSH reflex Free T4 4 Months E78.00 - Pure hypercholesterolemia, unspecified Complete Blood Count Auto Diff 4 Months D64.9 - Anemia, unspecified Uric Acid 4 Months M10.9 - Gout, unspecified Coding Level of Care Code Est Pt Level 4 (43898) Complex EM visit Add On G2211 Diagnoses Pure hypercholesterolemia E78.00 Type 2 diabetes mellitus with stage 3a chronic kidney disease, without long-term current use of insulin E11.22; N18.31 Diabetes mellitus adjunct faculty for medical terminology insulin use: without adjunct faculty for medical terminology use Chronic kidney disease stage: stage 3 (moderate) Chronic kidney disease stage 3 subtype: stage 3a (GFR 45-59) Stage 3b chronic kidney disease N18.32 Chronic kidney disease stage 3 subtype: stage 3b (GFR 30-44) Proteinuria, unspecified type R80.9 Proteinuria type: unspecified Benign essential hypertension I10 Lumbar degenerative disc disease M51.36 Cervical disc herniation M50.20 Vitamin D deficiency E55.9 Idiopathic gout, unspecified chronicity, unspecified site M10.00 Gout site: unspecified site Gout etiology: idiopathic Chronicity: unspecified Additional Codes PB-7 Assessment Billing - PB-7 Assessment Tool: PB-7 Assessment [id number] ([id number])
== END 2024-07-11 10:26 | disposition home or self-care (01) ==
PROVIDERS: PCP Internal Medicine; Visit Provider Internal Medicine
DX: I12.9 Hypertensive chronic kidney disease with stage 1 through stage 4 chronic kidney disease, or unspecified chronic kidney disease (principal); E78.00 Pure hypercholesterolemia, unspecified; E11.22 Type 2 diabetes mellitus with diabetic chronic kidney disease; N18.32 Chronic kidney disease, stage 3b; R80.9 Proteinuria, unspecified; M51.36 Other intervertebral disc degeneration, lumbar region; M50.20 Other cervical disc displacement, unspecified cervical region; E55.9 Vitamin D deficiency, unspecified; M10.00 Idiopathic gout, unspecified site
CPT/HCPCS: 99214; G2211

== ENCOUNTER 2024-08-25 06:01 | Outpatient (REF) | payer MEDICARE, SELFPAY ==
[2024-08-25 07:42] LABS: Appearance Urine Clear; Color Urine Yellow; Glucose Urine UA >=1000 mg/dL (Negative); Leukocyte Esterase Urine Negative (Negative); Nitrite Urine Negative (Negative); PH 5.5 (5.0-9.0); Specific Gravity - Urine 1.025 (1.005-1.025); UMIC TRIGGER UA YES; Urine Blood Negative (Negative); Urine Ketones Negative (Negative); Urine Protein 100 (2+) mg/dL (Neg-Trace)
[2024-08-25 07:45] LABS: Bacteria Urine None Seen (None Seen); Hyaline Casts Urine 0-2 /LPF (0-2); RBC Urine 0-2 /HPF (0-2); Squamous Epithelial Cell Urine 0-2 /HPF (0-2); WBC Urine 0-5 /HPF (0-5)
[2024-08-25 08:12] LABS: Anion Gap 11 (12-20); Blood Urea Nitrogen 19 mg/dL (9-16); Carbon Dioxide 26 mmol/L (22-29); Chloride 104 mmol/L (96-108); Estimated Glomerular Filt Rate 41; Potassium 4.4 mmol/L (3.3-5.1); Sodium 137 mmol/L (135-145)
== END 2024-08-25 06:02 | disposition home or self-care (01) ==
LOC: HO.LAB 06:01
PROVIDERS: PCP Internal Medicine; Visit Provider Internal Medicine Nephrology
DX: N18.32 Chronic kidney disease, stage 3b (principal); I10 Essential (primary) hypertension; E11.21 Type 2 diabetes mellitus with diabetic nephropathy
CPT/HCPCS: 36415; 80051; 81001; 82565; 84520

== ENCOUNTER 2024-09-02 09:30 | Outpatient (AMB) | payer MEDICARE, SELFPAY ==
--- NOTE | 2024-09-02 09:40 | HO.NEPHOV ---
Vital Signs 09/02/24 09:43 Height 5 ft 6 in Weight 142 lb 6 oz BMI 23.0 BP 110/60 Blood Pressure Location Lt brachial Position Sitting Pulse 74 Pulse Source Pulse Oximeter Pulse Oximetry (%) 98 Oxygen Delivery Method Room Air Intake Visit Reasons: 4 mon follow up-[facility] Operator Technician Required: No Accompanied by: Self / Same As Patient Allergies amlodipine Adverse Reaction (Intermediate, Verified 09/02/24 09:44) edema HPI Comments Details: Yrn was seen in follow up for management of his chronic kidney disease and hypertension. He has been a diabetic for over 10 years. He is known to have proteinuria. His blood pressure has been at goal. He does not have any edema. He has some prostatic symptoms. He has never had a renal biopsy. He denies any chest pain, shortness of breath, proximal nocturnal dyspnea, orthopnea, pedal edema, hematuria, epistaxis, photosensitivity, joint swellings, hematemesis, melena. He does not take any nonsteroidal anti-inflammatory medications. He hydrates himself very well. [facility] Medical History Cervical disc herniation Chronic kidney disease (CKD), stage III (moderate) Vitamin D deficiency Gout Lumbar degenerative disc disease Benign essential hypertension Pure hypercholesterolemia Proteinuria, unspecified Type 2 diabetes mellitus with diabetic chronic kidney disease Surgical History History of extraction of renal calculus History of cervical discectomy History of laminectomy Family History Father No problems noted. Mother No problems noted. Brother Diabetes Brother Heart problem Social History Household Members: Spouse Housing: House Alcohol intake: former Patient Tobacco Use Status: Former Tobacco user e-Cigarette/Vaping Use: Never Used Second Hand Smoke Exposure: No service: No Current occupational status: retired Cognitive needs: No Hearing needs: No Vision needs: No Review of Systems Const All systems reviewed & are unremarkable except as noted in HPI and below Physical Exam Vital Signs: Last Vital Signs Pulse 74 09/02/24 09:43 BP 110/60 09/02/24 09:43 Pulse Ox 98 09/02/24 09:43 Oxygen Delivery Method Room Air 09/02/24 09:43 BMI result Body Mass Index 23.0 Const General: comfortable and no acute distress Orientation/consciousness: patient oriented x3 HEENT Head: Yes normocephalic Mouth: Normal oral and palatal mucosa present Eyes EOM: EOMs intact bilaterally Neck Neck: Yes supple Resp Auscultation: clear to auscultation bilaterally Cardio Jugular venous distension: no JVD Rate: regular rate GI Palpation (GI): Soft to palpation Auscultation: normal bowel sounds General: Yes no CVA tenderness Back/Spine/Pelvis Back: no CVA tenderness Skin General skin exam: no rashes or lesions noted Neuro General: patient oriented x3 and moves all extremities Extrem General: Yes no pedal edema Results Reviewed Nephrology Results: Hgb 16.2 g/dl (14.0-18.0) 07/01/24 WBC 7.8 X10*3/uL (4.8-10.8) 07/01/24 Plt Count 191 X10*3/uL (160-400) 07/01/24 Sodium 137 mmol/L (135-145) 08/25/24 Potassium 4.4 mmol/L (3.3-5.1) 08/25/24 Chloride 104 mmol/L (96-108) 08/25/24 Carbon Dioxide 26 mmol/L (22-29) 08/25/24 BUN 19 mg/dL (9-16) H 08/25/24 Creatinine 1.68 mg/dL (0.5-1.4) H 08/25/24 Calcium 10.0 mg/dL (8.4-10.2) 07/01/24 Urine Protein 100 (2+) mg/dL (Neg-Trace) H 08/25/24 Urine Creatinine 85.20 mg/dL 07/01/24 Assessment & Plan Assessment & Plan (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 Category: Medical Qualifiers: Diabetes mellitus type: type 2 Qualified Code(s): E11.21 - Type 2 diabetes mellitus with diabetic nephropathy (2) Hypertension: Code(s): I10 - Essential (primary) hypertension Category: Medical Qualifiers: Hypertension type: primary hypertension Qualified Code(s): I10 - Essential (primary) hypertension (3) Chronic kidney disease (CKD), stage III (moderate): Code(s): N18.30 - Chronic kidney disease, stage 3 unspecified Category: Medical Qualifiers: Chronic kidney disease stage 3 subtype: stage 3b (GFR 30-44) Qualified Code(s): N18.32 - Chronic kidney disease, stage 3b Qasim Pool 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 He has not had proteinuria. He is on BERT-inhibitor. His serum potassium is normal. His blood pressure is at goal. His last hemoglobin A1c was 6. He hydrates himself well. He never had a renal biopsy. He is taking Jardiance, dose of which I increased to 25 mg daily. He may need an alpha reyna if he has ongoing prostatic symptoms. He needs to keep his LDL low. I did not make any other medication changes today. All his questions were answered Orders: Orders Creatinine 3 Months E11.21 - Type 2 diabetes mellitus with diabetic nephropathy, I10 - Essential (primary) hypertension, N18.32 - Chronic kidney disease, stage 3b Blood Urea Nitrogen 3 Months E11.21 - Type 2 diabetes mellitus with diabetic nephropathy, I10 - Essential (primary) hypertension, N18.32 - Chronic kidney disease, stage 3b Electrolytes 3 Months E11.21 - Type 2 diabetes mellitus with diabetic nephropathy, I10 - Essential (primary) hypertension, N18.32 - Chronic kidney disease, stage 3b Protein Creatinine Ratio, Ur 3 Months E11.21 - Type 2 diabetes mellitus with diabetic nephropathy, I10 - Essential (primary) hypertension, N18.32 - Chronic kidney disease, stage 3b Medications: Changed From empagliflozin (Jardiance) 12.5 mg (1/2 x 25 mg) PO QAM 45 tabs 0RF To empagliflozin (Jardiance) 25 mg PO QAM 90 days 90 tabs 3RF From lisinopril 20 mg (1/2 x 40 mg) PO DAILY 90 days 45 tabs 1RF To lisinopril 20 mg PO DAILY 90 days 90 tabs 2RF Coding Level of Care Code Est Pt Level 4 (27416) Diagnoses Diabetic nephropathy associated with type 2 diabetes mellitus E11.21 Diabetes mellitus type: type 2 Primary hypertension I10 Hypertension type: primary hypertension Stage 3b chronic kidney disease N18.32 Chronic kidney disease stage 3 subtype: stage 3b (GFR 30-44)
[2024-09-02 09:43] VITALS: BP 110/60; PULSE 74; O2SAT 98; BMI 23.0
== END 2024-09-02 10:06 | disposition home or self-care (01) ==
LOC: HO.HKAS 09:31
PROVIDERS: PCP Internal Medicine; Visit Provider Internal Medicine Nephrology
DX: E11.21 Type 2 diabetes mellitus with diabetic nephropathy (principal); I10 Essential (primary) hypertension; N18.32 Chronic kidney disease, stage 3b
CPT/HCPCS: 99214

== ENCOUNTER → 2024-09-02 09:30 | Outpatient (BNVA) | payer MEDICARE, SELFPAY | PROVIDERS: PCP Internal Medicine; Visit Provider Internal Medicine Nephrology | DX: I12.9 Hypertensive chronic kidney disease with stage 1 through stage 4 chronic kidney disease, or unspecified chronic kidney disease (principal); E11.22 Type 2 diabetes mellitus with diabetic chronic kidney disease; E11.21 Type 2 diabetes mellitus with diabetic nephropathy; R80.9 Proteinuria, unspecified; N18.32 Chronic kidney disease, stage 3b | CPT/HCPCS: 99212 ==

== ENCOUNTER 2024-11-17 06:04 | Outpatient (REF) | payer MEDICARE, SELFPAY ==
[2024-11-17 06:14] LABS: MANUAL DIFF FLAG NO
[2024-11-17 07:37] LABS: Basophils Percent Auto 0.4 % (0-2); Eosinophils Absolute Auto 0.2 X10*3/uL (0.0-0.4); Eosinophils Percent Auto 2.5 % (0-4); Hematocrit 51.5 % (42.0-52.0); Hemoglobin 16.5 g/dl (14.0-18.0); Imm Gran Abs Auto 0.02 X10*3/uL (0.00-0.03); Imm Gran Pct Auto 0.3 % (0.0-0.4); Lymphocytes Percent Auto 14.4 % (20-40); Mean Corpuscular Hemoglobin 27.2 pg (27.0-33.0); Mean Corpuscular Volume 84.8 fL (80.0-98.0); Mean Platelet Volume 9.9 fL (9.4-12.4); Monocytes Absolute Auto 0.5 X10*3/uL (0.1-1.2); Monocytes Percent Auto 7.4 % (2-11); Platelet Count 177 X10*3/uL (160-400); Red Blood Count 6.07 X10*6/uL (4.60-5.80); Red Cell Distribution Width 14.2 % (11.0-16.0); White Blood Count 6.7 X10*3/uL (4.8-10.8)
[2024-11-17 07:44] LABS: Estimated Average Glucose 154 mg/dL; Hemoglobin A1C 223.8105 umol/L; Total Hemoglobin (HGBA1C) 4264.5005 umol/L
[2024-11-17 08:14] LABS: Alanine Aminotransferase 32 U/L (0-40); Albumin Level 4.2 g/dL (3.5-5.0); Alkaline Phosphatase 53 U/L (39-117); Anion Gap 13 (12-20); Aspartate Amino Transferase 28 U/L (5-37); Bilirubin Total 1.1 mg/dL (0.0-1.0); Blood Urea Nitrogen 30 mg/dL (9-16); Calcium 9.9 mg/dL (8.4-10.2); Carbon Dioxide 26 mmol/L (22-29); Chloride 107 mmol/L (96-108); Cholesterol 174 mg/dL (<200); Estimated Glomerular Filt Rate 39; Glucose Fasting 160 mg/dL (60-99); HDL Cholesterol 58 mg/dL (>40); LDL Cholesterol Calculated 92 mg/dL (<100); Potassium 4.7 mmol/L (3.3-5.1); Sodium 141 mmol/L (135-145); Total Protein 7.3 g/dL (6.5-8.0); Triglycerides 120 mg/dL (<150); Uric Acid 5.8 mg/dL (3.4-7.0)
[2024-11-17 08:26] LABS: TSH reflex Free T4 3.08 uIU/mL (0.32-4.0)
[2024-11-17 08:31] LABS: Appearance Urine Clear; Color Urine Yellow; Glucose Urine UA >=1000 mg/dL (Negative); Leukocyte Esterase Urine Negative (Negative); Nitrite Urine Negative (Negative); PH 5.5 (5.0-9.0); Specific Gravity - Urine 1.025 (1.005-1.025); UMIC TRIGGER UACC YES; Urine Blood Negative (Negative); Urine Ketones Negative (Negative); Urine Protein 100 (2+) mg/dL (Neg-Trace)
[2024-11-17 08:37] LABS: Bacteria Urine None Seen (None Seen); Hyaline Casts Urine 0-2 /LPF (0-2); RBC Urine 0-2 /HPF (0-2); Squamous Epithelial Cell Urine 0-2 /HPF (0-2); WBC Urine 0-5 /HPF (0-5)
[2024-11-17 09:34] LABS: Creatinine Urine 76.93 mg/dL
[2024-11-17 09:53] LABS: Microalbum/Creatinine Ratio Ur 726.6 ug/mg cr (<30)
== END 2024-11-17 06:05 | disposition home or self-care (01) ==
LOC: HO.LAB 06:04
PROVIDERS: PCP Internal Medicine; Visit Provider Internal Medicine
DX: E78.00 Pure hypercholesterolemia, unspecified (principal); E11.9 Type 2 diabetes mellitus without complications; M10.9 Gout, unspecified; D64.9 Anemia, unspecified
CPT/HCPCS: 36415; 80053; 80061; 81001; 82043; 82570; 83036; 84443; 84550; 85025

== ENCOUNTER 2024-11-24 14:39 | Outpatient (AMB) | payer MEDICARE, SELFPAY ==
[2024-11-24 14:43] VITALS: BP 136/82; PULSE 77; TEMP 36.6; O2SAT 97; BMI 23.1
--- NOTE | 2024-11-24 14:43 | A.OFFPC_ITS ---
Vital Signs 11/24/24 14:43 Height 5 ft 6 in Weight 143 lb 6 oz BMI 23.1 BP 136/82 Blood Pressure Location Lt brachial Position Sitting Pulse 77 Pulse Source Pulse Oximeter Temp 97.9 F Temp Source Temporal Artery Scan Pulse Oximetry (%) 97 Oxygen Delivery Method Room Air Intake Visit Reasons: Pre op Cataracts right eye 12/15/24 [employer] [facility] Consultant Required: No Accompanied by: Self / Same As Patient Allergies amlodipine Adverse Reaction (Intermediate, Verified 11/24/24 15:12) edema Medication List - Last Reconciled 11/24/24 by NNAMDI Brown blood sugar diagnostic 1 strip miscellaneous DAILY 30 days cholecalciferol (vitamin D3) 25 mcg PO DAILY empagliflozin (Jardiance) 25 mg PO QAM 90 days glipizide ER 5 mg PO DAILY hydralazine 50 mg PO TID 90 days labetalol 200 mg PO BID 90 days lisinopril 20 mg PO DAILY 90 days metformin ER 500 mg PO BEDTIME omega-3 fatty acids (Fish Oil Concentrate) 1,000 mg PO DAILY pravastatin 40 mg PO DAILY Tobacco use date assessed: 11/24/24 Fall risk assessment: No Falls in past year Last assessed Fall Risk: 11/24/24 Dental Screening Dental Screen Date: 11/24/24 Did you have a dental visit in the last 12 months?: Yes Did you have a dental problem in the last 6 months where you did not have access to dental care?: No Was dental information given to patient?: Patient has dentist HPI Pre op Cataracts right eye 12/15/24 HPI Details The patient is a 69-year-old male who was presenting today for preop clearance Patient of Dr. Knutson Surgery: Cataract surgery of right eye on 12/15/2024 and on 01/19/2025 of the left eye due to cataract, nuclear age-related, bilateral OU Patient was diagnosed with narrow angle glaucoma suspect, bilateral OU The patient was also diagnosed with hypertensive retinopathy, bilateral OU The patient is a type 2 diabetic controlled metformin 500 mg at bedtime, glipizide 5 mg really and Jardiance 25 mg daily His last A1c on 11/17/2024 was 7%, 6.3% on 07/01/2024, 6.4 02/12/24 Surgeon/location:[facility]imino [facility] Anesthesia: Local The patient denies history of perioperative hypothermia her blood clotting disorders. He is not on anticoagulation Medical history is significant for hypertension, chronic kidney disease stage 3, type 2 diabetes, hypercholesterolemia, vitamin-D deficiency and lumbar disc disease The patient denies chest pain, shortness of breath, heart palpitation, dizziness or feeling faint The patient reports that he does not want to take any medication before surgery due to fear of an upset stomach Discussed with patient about importance taking at least his blood pressure medication with sips of water Patient verbalized understanding and said that he will. Gout: Patient reports he has not had a gout flare-up in a long time and would like to stop the allopurinol. - will stop the allopurinol do a follow -up uric acid in 3 months. The patient reports that he wants to get off his metformin medication. That he has been reading online location about the side effects the metformin he is worried that he already has kidney issues. Discussed with patient about not wanting to make any changes prior to his operation. Set up a three-month follow up appointment to discussed these issues with the patient and make appropriate changes [facility] Medical History Cervical disc herniation Chronic kidney disease (CKD), stage III (moderate) Vitamin D deficiency Gout Lumbar degenerative disc disease Benign essential hypertension Pure hypercholesterolemia Proteinuria, unspecified Type 2 diabetes mellitus with diabetic chronic kidney disease Surgical History History of extraction of renal calculus History of cervical discectomy History of laminectomy Family History Father No problems noted. Mother No problems noted. Brother Diabetes Brother Heart problem Social History Household Members: Spouse Housing: House Alcohol intake: former Patient Tobacco Use Status: Former Tobacco user e-Cigarette/Vaping Use: Never Used Second Hand Smoke Exposure: No service: No Current occupational status: retired Cognitive needs: No Hearing needs: No Vision needs: No Questionnaire PHQ-9 Over the last 2 weeks, how often have you been bothered by any of the following problems? 1. Little interest or pleasure in doing things: not at all 2. Feeling down, depressed, or hopeless: not at all 3. Trouble falling or staying asleep, or sleeping too much: not at all 4. Feeling tired or having little energy: not at all 5. Poor appetite or overeating: not at all 6. Feeling bad about yourself - or that you are a failure or have let yourself or your family down: not at all 7. Trouble concentrating on things, such as reading the newspaper or watching television: not at all 8. Moving or speaking so slowly that other people could have noticed. Or the opposite - being so fidgety or restless that you have been moving around a lot more than usual: not at all 9. Thoughts that you would be better off or of hurting yourself in some way: not at all Total score: 0 Depression Screening Interpretation: Negative Depression Screening Done: Yes 21362 - PHQ-9 Billing: Yes Source: Developed by Drs. Tray Benoit, Frannie Tolentino, Jarett Santiago and colleagues, with an educational karlos from [employer] Thrive Questionnaire Date Thrive assessed: 11/24/24 I am a: Patient What is your living situation today?: I have a steady place to live Within the past 12 months, did the food you bought not last and you didn't have the money to get more?: Never true Within the past 12 months, did you worry whether your food would run out before you got money to buy more?: Never true Do you have trouble paying for medicines?: No Do you have trouble getting transportation to medical appointments?: No Do you have trouble paying your heating and electricity bill?: No Do you have trouble taking care of your child, family member or friend?: No Do you have trouble with day-to-day activities such as bathing, preparing meals, shopping, managing finances, etc.?: No Are you currently unemployed and looking for a job?: No Are you interested in more education?: No Please select the resources that you would like help with: None Currently or been in a relationship where the following occur: No concerns reported THRIVE Score: 0 AUDIT C Alcohol Use Questionnaire (AUDIT-C) 1. How often do you have a drink containing alcohol?: Never 3. How often do you have six or more drinks on one occasion?: Never Total Score: 0 Score Reviewed/Action Taken: Yes PB-7 AMB Questionnaire PB-7 Date PB - 7 assessed: 11/24/24 Feeling nervous, anxious, or on edge: 0 = Not at all Not being able to stop or control worryin = Not at all Worrying too much about different things: 0 = Not at all Trouble relaxin = Not at all Being so restless that it is hard to sit still: 0 = Not at all Becoming easily annoyed or irritable: 0 = Not at all Feeling afraid as if something awful might happen: 0 = Not at all Total PB-7 score (0-4 normal; 5-9 mild; 10-14 moderate; 15-21 severe): 0 Source: Developed by Drs. Tray Benoit, Frannie Tolentino, Jarett Santiago and colleagues, with an educational karlos from [employer] PB-7 Assessment Billing PB-7 Assessment Tool: PB-7 Assessment 39008 Review of Systems Const Details: Denies chills, Denies fatigue, Denies fever(s), Denies headache(s) and Denies weakness HEENT Denies change in vision, Denies dizziness, Denies headache(s), Denies hearing loss, Denies nasal congestion, Denies sinus pain, Denies sinus pressure and Denies sore throat Card Denies chest pain, Denies lightheadedness, Denies dyspnea and Denies other (palpitations) Resp Denies cough, Denies dyspnea and Denies wheezing GI Denies abdominal pain, Denies melena, Denies hematochezia, Denies change in bowel habits, Denies dyspepsia and Denies nausea Denies hematuria and Denies dysuria Musc Reports chronic lower back and neck pain, reports chronic left leg pain Skin/Breast Denies rash, Denies unusual bruising and Denies wounds Neuro Denies abnormal gait, Denies dizziness, Denies headache(s), Denies memory loss, Denies numbness, Denies Sensory deficit (Neuro), Denies tingling and Denies weakness Psych Denies anxiety, Denies depression and Denies memory loss Endo Denies cold intolerance, Denies fatigue, Denies heat intolerance, Denies polydipsia and Denies polyuria Gaurang/Lymph Denies easy bleeding and Denies easy bruising Aller/Immun Denies wheezing Physical exam (Primary Care) Vital Signs: Last Vital Signs Temp 97.9 F 11/24/24 14:43 Pulse 77 11/24/24 14:43 BP 136/82 11/24/24 14:43 Pulse Ox 97 11/24/24 14:43 Oxygen Delivery Method Room Air 11/24/24 14:43 BMI result Body Mass Index 23.1 Tobacco/Smoking Status: Tobacco use Status Tobacco use date assessed 11/24/24 11/24/24 14:47 Patient Tobacco Use Status Former Tobacco user 11/24/24 14:47 e-Cigarette/Vaping Use Never Used 11/24/24 14:47 PHQ-9: PHQ-9 Score PHQ-9: Total score 0 11/25/24 07:32 Depression Screening Interpretation: Negative Thrive Assessment: Date of Thrive Assessment Date Thrive assessed 11/24/24 11/24/24 14:47 Currently or been in a relationship where the following occur: No concerns reported Const Other: General: no acute distress, well developed, alert and awake Nutritional Appearance: well nourished Orientation/consciousness: patient oriented x3 HENMT Head: Yes normocephalic and Yes atraumatic Ears: hearing grossly normal bilaterally and TM's normal bilaterally Throat: Yes oropharynx normal Eyes Pupils: Equal, round and reactive pupils present and Pupil accommodation reflex normal EOM: EOMs intact bilaterally Neck Neck: Yes normal visual inspection, Yes no lymphadenopathy and Yes trachea midline Thyroid: Thyroid normal Carotids: no bruits Lymphatic: no lymphadenopathy noted Chest Chest palpation & inspection: normal inspection of the chest Resp Effort & Inspection: normal respiratory effort Auscultation: clear to auscultation bilaterally Cardio Rate: regular rate Rhythm: regular rhythm Heart sounds: S1 normal heart sound present, S2 normal heart sound present, no gallops, no murmurs and no rubs Bruits: no abdominal aortic bruits and no carotid bruits GI Palpation (GI): Abdomen is soft and nontender to palpation Auscultation: normal bowel sounds General: Yes no CVA tenderness Back/Spine/Pelvis Back: no CVA tenderness + lumbar spine tenderness and cervical spine tenderness Skin General: warm and dry. Normal skin color. Normal skin turgor Lesions: no lesions Neuro General: patient oriented x3, gait normal Cranial nerves: Yes Equal, round and reactive pupils present Cognition (Neuro): normal cognition Gait exam (Neuro): Walks with a limp Extrem General: Yes normal to inspection, No edema and No calf tenderness Psych Appearance: grossly normal Affect: normal affect Attitude: cooperative Thought process: Normal thought process present Results Reviewed Results Reviewed: Laboratory Tests 11/17/24 06:14 WBC 6.7 RBC 6.07 H Hgb 16.5 Hct 51.5 MCV 84.8 MCH 27.2 Plt Count 177 Sodium 141 Potassium 4.7 Chloride 107 BUN 30 H Creatinine 1.73 H Estimated GFR 39 Fasting Glucose 160 H Hemoglobin A1c % 7.0 H Uric Acid 5.8 AST 28 ALT 32 Triglycerides 120 Cholesterol 174 LDL Cholesterol, Calc 92 HDL Cholesterol 58 TSH 3.08 Coding Level of Care Code Est Pt Level 4 (32949) Diagnoses Preoperative clearance Z01.818 Benign essential hypertension I10 Pure hypercholesterolemia E78.00 Type 2 diabetes mellitus with stage 3a chronic kidney disease, without long-term current use of insulin E11.22; N18.31 Chronic kidney disease stage: stage 3 (moderate) Chronic kidney disease stage 3 subtype: stage 3a (GFR 45-59) Diabetes mellitus cold storage superintendent insulin use: without cold storage superintendent use Stage 3b chronic kidney disease N18.32 Chronic kidney disease stage 3 subtype: stage 3b (GFR 30-44) Idiopathic gout, unspecified chronicity, unspecified site M10.00 Chronicity: unspecified Gout etiology: idiopathic Gout site: unspecified site Vitamin D deficiency E55.9 Degeneration of intervertebral disc of lumbar region, unspecified whether pain present M51.369 Disc-related pain type: unspecified whether pain present Additional Codes PB-7 Assessment Billing - PB-7 Assessment Tool: PB-7 Assessment 18363 ([id number]) PHQ-9 - 46143 - PHQ-9 Billing: Yes ([id number]) Time Spent (min) 32 Assessment & Plan Assessment & Plan (1) Preoperative clearance: Code(s): Z01.818 - Encounter for other preprocedural examination Category: Medical Plan: Regarding preop clearance month the patient is at acceptable risk for proposed surgery. Reviewed with the patient that no surgery is completely free of risk and that this examination is to assist the surgeon in reviewing informed consent. Discussed with patient to hold glipizide the morning of surgery but it could take his other medications with sips of water. The patient would like to skip all his medications to avoid feeling nauseous by taking his medications without eating. SDM: The the patient will take only his blood pressure medications with sips of water on the morning of surgery (2) Benign essential hypertension: Code(s): I10 - Essential (primary) hypertension Category: Medical Plan: Reinforced low-sodium diet Continue lisinopril 20 mg daily, labetalol 200 mg b.i.d. hydralazine 50 mg t.i.d. Monitor blood pressure regularly (3) Pure hypercholesterolemia: Code(s): E78.00 - Pure hypercholesterolemia, unspecified Category: Medical Plan: Reinforced a diet low in cholesterol and activity as tolerated Continue pravastatin 40 mg daily (4) Type 2 diabetes mellitus with diabetic chronic kidney disease: Code(s): E11.22 - Type 2 diabetes mellitus with diabetic chronic kidney disease Category: Medical Qualifiers: Chronic kidney disease stage: stage 3 (moderate) Chronic kidney disease stage 3 subtype: stage 3a (GFR 45-59) Diabetes mellitus group home insulin use: without cold storage superintendent use Qualified Code(s): E11.22 - Type 2 diabetes mellitus with diabetic chronic kidney disease; N18.31 - Chronic kidney disease, stage 3a Plan: The patient A1c is 7% he has slight increase from 6.4% Reinforced a diet low in sugar/carbohydrate activity as tolerated Continue glipizide 5 mg daily, metformin 500 mg at bedtime, in Jardiance 25 mg daily We will repeat labs in 3 months (5) Chronic kidney disease (CKD), stage III (moderate): Code(s): N18.30 - Chronic kidney disease, stage 3 unspecified Category: Medical Qualifiers: Chronic kidney disease stage 3 subtype: stage 3b (GFR 30-44) Qualified Code(s): N18.32 - Chronic kidney disease, stage 3b Plan: Patient kidney function slightly decreased Follow up with Nephrology as scheduled (6) Gout: Code(s): M10.9 - Gout, unspecified Category: Medical Qualifiers: Chronicity: unspecified Gout etiology: idiopathic Gout site: unspecified site Qualified Code(s): M10.00 - Idiopathic gout, unspecified site Plan: Patient requested to be taken off allopurinol.Reports that he has not have any gout flare up for a long time Uric acid on 11/17/2024 5.8, Will stop allopurinol and recheck levels in 3 months (7) Vitamin D deficiency: Code(s): E55.9 - Vitamin D deficiency, unspecified Category: Medical Plan: Continue cholecalciferol 25 mcg daily will recheck labs in 3 months (8) Lumbar degenerative disc disease: Code(s): M51.36 - Other intervertebral disc degeneration, lumbar region Category: Medical Qualifiers: Disc-related pain type: unspecified whether pain present Qualified Code(s): M51.369 - Other intervertebral disc degeneration, lumbar region without mention of lumbar back pain or lower extremity pain Plan: Reinforced weight and activity restrictions Plan Follow up in 3 months Orders: Orders Comprehensive [place]. Panel Fast 3 Months E11.21 - Type 2 diabetes mellitus with diabetic nephropathy, E11.22 - Type 2 diabetes mellitus with diabetic chronic kidney disease, E55.9 - Vitamin D deficiency, unspecified, E78.00 - Pure hyperc holesterolemia, unspecified, I10 - Essential (primary) hypertension, M10.00 - Idiopathic gout, unspecified site, N17.9 - Acute kidney failure, unspecified, N18.31 - Chronic kidney disease, stage 3a, N18.32 - Chronic kidney disease, stage 3b TSH reflex Free T4 3 Months E11.21 - Type 2 diabetes mellitus with diabetic nephropathy, E11.22 - Type 2 diabetes mellitus with diabetic chronic kidney disease, E55.9 - Vitamin D deficiency, unspecified, E78.00 - Pure hypercholesterolemia, unspecified, I10 - Essential (primary) hypertension, M10.00 - Idiopathic gout, unspecified site, N17.9 - Acute kidney failure, unspecified, N18.31 - Chronic kidney disease, stage 3a, N18.32 - Chronic kidney disease, stage 3b Vitamin D 25-OH Total 3 Months E11.21 - Type 2 diabetes mellitus with diabetic nephropathy, E11.22 - Type 2 diabetes mellitus with diabetic chronic kidney disease, E55.9 - Vitamin D deficiency, unspecified, E78.00 - Pure hypercholesterolemia, unspecified, I10 - Essential (primary) hypertension, M10.00 - Idiopathic gout, unspecified site, N17.9 - Acute kidney failure, unspecified, N18.31 - Chronic kidney disease, stage 3a, N18.32 - Chronic kidney disease, stage 3b Hemoglobin A1c 3 Months E11.21 - Type 2 diabetes mellitus with diabetic nephropathy, E11.22 - Type 2 diabetes mellitus with diabetic chronic kidney disease, E55.9 - Vitamin D deficiency, unspecified, E78.00 - Pure hypercholesterolemia, unspecified, I10 - Essential (primary) hypertension, M10.00 - Idiopathic gout, unspecified site, N17.9 - Acute kidney failure, unspecified, N18.31 - Chronic kidney disease, stage 3a, N18.32 - Chronic kidney disease, stage 3b UA CC w/rflx Micro + Cult 3 Months E11.21 - Type 2 diabetes mellitus with diabetic nephropathy, E11.22 - Type 2 diabetes mellitus with diabetic chronic kidney disease, E55.9 - Vitamin D deficiency, unspecified, E78.00 - Pure hypercholesterolemia, unspecified, I10 - Essential (primary) hypertension, M10.00 - Idiopathic gout, unspecified site, N17.9 - Acute kidney failure, unspecified, N18.31 - Chronic kidney disease, stage 3a, N18.32 - Chronic kidney disease, stage 3b Microalbumin, Random (w Creat) 3 Months E11.21 - Type 2 diabetes mellitus with diabetic nephropathy, E11. - Type 2 diabetes mellitus with diabetic chronic k idney disease, E55.9 - Vitamin D deficiency, unspecified, E78.00 - Pure hypercholesterolemia, unspecified, I10 - Essential (primary) hypertension, M10.00 - Idiopathic gout, unspecified site, N17.9 - Acute kidney failure, unspecified, N18.31 - Chronic kidney disease, stage 3a, N18.32 - Chronic kidney disease, stage 3b Complete Blood Count Auto Diff 3 Months E11.21 - Type 2 diabetes mellitus with diabetic nephropathy, E11.22 - Type 2 diabetes mellitus with diabetic chronic kidney disease, E55.9 - Vitamin D deficiency, unspecified, E78.00 - Pure hypercholesterolemia, unspecified, I10 - Essential (primary) hypertension, M10.00 - Idiopathic gout, unspecified site, N17.9 - Acute kidney failure, unspecified, N18.31 - Chronic kidney disease, stage 3a, N18.32 - Chronic kidney disease, stage 3b Uric Acid 3 Months E11.21 - Type 2 diabetes mellitus with diabetic nephropathy, E11.22 - Type 2 diabetes mellitus with diabetic chronic kidney disease, E55.9 - Vitamin D deficiency, unspecified, E78.00 - Pure hypercholesterolemia, unspecified, I10 - Essential (primary) hypertension, M10.00 - Idiopathic gout, unspecified site, N17.9 - Acute kidney failure, unspecified, N18.31 - Chronic kidney disease, stage 3a, N18.32 - Chronic kidney disease, stage 3b Lipid Panel 3 Months E11.21 - Type 2 diabetes mellitus with diabetic nephropathy, E11.22 - Type 2 diabetes mellitus with diabetic chronic kidney disease, E55.9 - Vitamin D deficiency, unspecified, E78.00 - Pure hypercholesterolemia, unspecified, I10 - Essential (primary) hypertension, M10.00 - Idiopathic gout, unspecified site, N17.9 - Acute kidney failure, unspecified, N18.31 - Chronic kidney disease, stage 3a, N18.32 - Chronic kidney disease, stage 3b
== END 2024-11-24 15:35 | disposition home or self-care (01) ==
PROVIDERS: PCP Internal Medicine; Visit Provider Internal Medicine
DX: I12.9 Hypertensive chronic kidney disease with stage 1 through stage 4 chronic kidney disease, or unspecified chronic kidney disease (principal); E11.22 Type 2 diabetes mellitus with diabetic chronic kidney disease; N18.32 Chronic kidney disease, stage 3b; Z01.818 Encounter for other preprocedural examination; E78.00 Pure hypercholesterolemia, unspecified; M10.00 Idiopathic gout, unspecified site; E55.9 Vitamin D deficiency, unspecified; M51.369 Other intervertebral disc degeneration, lumbar region without mention of lumbar back pain or lower extremity pain

== ENCOUNTER → 2024-11-24 14:39 | Outpatient (BNVA) | payer MEDICARE, SELFPAY | PROVIDERS: PCP Internal Medicine; Visit Provider Internal Medicine | DX: Z01.818 Encounter for other preprocedural examination (principal); E78.00 Pure hypercholesterolemia, unspecified; I12.9 Hypertensive chronic kidney disease with stage 1 through stage 4 chronic kidney disease, or unspecified chronic kidney disease; E11.22 Type 2 diabetes mellitus with diabetic chronic kidney disease; N18.31 Chronic kidney disease, stage 3a; M10.00 Idiopathic gout, unspecified site; E55.9 Vitamin D deficiency, unspecified; M51.369 Other intervertebral disc degeneration, lumbar region without mention of lumbar back pain or lower extremity pain | CPT/HCPCS: 96127; 99212 ==

== ENCOUNTER 2024-12-01 06:05 | Outpatient (REF) | payer MEDICARE, SELFPAY ==
--- OUTSIDE RECORDS SUMMARY | 2024-12-01 06:07 | XMS_ITS | Encounter Summary ---
Author Organization [facility] Address [address] [facility] [address] [place] [address] Phone Care Team Providers Care Assistance Coordinator Name Role Phone Nikhil Knutson MD Primary Care Provider [phone]- [phone] Reason for Visit * Reason Comments Med Refill Encounter Details Date Type Department Care Team (Late st Contact Info) Description 02/09/2024 [facility]ill [facility] [address] [place] [phone] Ki Figueroa MD [address] [facility] [address] [place] [phone] Hypertensive disorder Social History Tobacco Use Types Packs/Day Years Used Date Smoking Tobacco: Former Cigarettes Smokeless Tobacco: Never Alcohol Use Standard Drinks/Week Comments No 0 (1 standard drink = 0.6 oz pur e alcohol) Sex and Gender Information Value Date Recorded Sex Assigned at Not on file Legal Sex Male 5:26 PM EST Gender Identity Not on file Sexual Orientation Not on file documented as of this encounter Plan of Treatment Not on file documented as of this encounter Visit Diagnoses Diagnosis Hypertensive disorder documented in this encounter Care Teams Assistance Coordinator Relationship Specialty Start Date End Date Nikhil Knutson MD [address] [place], [place] [id number] PCP - General 11/03/22 documented as of this encounter
--- OUTSIDE RECORDS SUMMARY | 2024-12-01 06:07 | XMS_ITS | Encounter Summary ---
Author Organization [facility] Address [address] [place] [address] Phone Care Team Providers Care Patch Finisher Name Role Phone Nikhil Knutson MD Primary Care Provider [phone]- [phone] Reason for Visit * Reason Comments Med Refill Encounter Details Date Type Department Care Team (Late st Contact Info) Description 12/07/2023 Refill [facility] [address] [place] [phone] Ki Figueroa MD [address] [place] [phone] Renal disorder due to type 2 diabetes mellitus <Diabetic nephropathy> (HCC) Social History Tobacco Use Types Packs/Day Years [...] as of this encounter Visit Diagnoses Diagnosis Renal disorder due to type 2 diabetes mellitus <Diabetic nephropathy> (HCC) documented in this encounter Care Teams Patch Finisher Relationship Specialty Start Date End Date Nikhil Knutson MD [address] [place] [address] PCP - General 11/03/22 documented as of this encounter
--- OUTSIDE RECORDS SUMMARY | 2024-12-01 06:07 | XMS_ITS | Clinical Summary ---
Author Organization [facility] Facility Address [address] [address] Care Team Providers Care Tumblers Supervisor Name Role Phone Nikhil Knutson MD Primary Care Provider [phone]- [phone] Allergies No known active allergies Medications pravastatin (PRAVACHOL) 40 MG tablet Take 1 tablet by mouth 1 (one) time each day Active metFORMIN XR (GLUCOPHATE-XR) 500 MG 24 hr tablet Take 1 tablet by mouth 1 (one) time each day Active allopurinol (ZYLOPRIM) 100 MG tablet Take 1 tablet by mouth 1 (one) time each day 06/09/2014 Active lisinopril 20 MG tablet Take 1 tablet by mouth 1 (one) time each day 08/03/2014 Active cholecalciferol (VITAMIN D-3) 25 MCG (1000 UT) tablet Take 1,000 Units by mouth 1 (one) time each day Active glipiZIDE (GLUCOTROL) 5 MG tablet Take 5 mg by mouth 1 (one) time each day Active hydroCHLOROthia zide (HYDRODIURIL) 50 MG tablet Take 50 mg by mouth 1 (one) time each day Active labetalol (NORMODYNE) 200 MG tabletIndicatio ns:Hypertensive disorder Take 1 tablet (200 mg total) by mouth in the morning and 1 tablet (200 mg total) in the evening. 180 tablet 3 02/19/2023 Active Active Problems Problem Noted Date Diagnosed Date Stage 3a chronic kidney disease 01/10/2023 Type 2 diabetes mellitus wit h diabetic chronic kidney disease 01/10/2023 Stage 3b chronic kidney disease 11/29/2022 Renal osteodystrophy 11/29/2022 Chronic kidney disease due to benign hypertensio n 11/29/2022 Chronic kidney disease stage 3 11/03/2022 Diabetes mellitus 11/03/2022 Dyslipidemia 11/03/2022 Hypertensive disorder 11/03/2022 Proteinuria 11/03/2022 Renal disorder due to type 2 diabetes mellitus 1 Chronic kidney disease stage 3 03/12/2020 Hypertensive disorder 03/12/2020 IgA nephropathy 03/12/2020 Proteinuria 03/12/2020 Family History Medical History Relation Comments Diabetes Brother Heart disease Brother Hypertension Brother Kidney disease Brother Diabetes Sibling brother and sist er - type 2 Relation Status Comments Brother Father Mother Sibling Social History Tobacco Use Types Packs/Day Years Used Date Smoking Tobacco: Former Cigarettes Smokeless Tobacco: Never Tobacco Cessation:Counseling Given: Not Answered Alcohol Use Standard Drinks/Week Comments No 0 (1 standard drink = 0.6 oz pur e alcohol) Sex and Gender Information Value Date Recorded Sex Assigned at Not on file Legal Sex Male 5:26 PM EST Gender Identity Not on file Sexual Orientation Not on file Last Filed Vital Signs Vital Sign Reading Time Taken Comments Blood Pressure 140/80 01/10/2023 12:28 PM EST Pulse 72 01/10/2023 12:28 PM EST Temperature - - Respiratory Rate - - Oxygen Saturation 97% 01/10/2023 12:28 PM EST Inhaled Oxygen Concentration - - Weight 67.1 kg (148 lb) 01/10/2023 12:28 PM EST Height 167.6 cm (5' 6 ) 08/26/2019 12:00 PM EDT Body Mass Index 23.89 08/26/2019 12:00 PM EDT Plan of Treatment Health Maintenance Due Date Last Done Comments Pneumococcal Vaccine: 65+ Ye ars (1 of 2 - PCV) 1961 Colorectal Cancer Screening: Annual FOBT 2004 Colorectal Cancer Screening: Colonoscopy 2004 Colorectal Cancer Screening: Sigmoidoscopy 2004 Diabetes: Hemoglobin A1C 12/06/2020 Diabetes: Ophthalmology Exam 12/06/2020 Diabetes: Pedal Pulse Checked 12/06/2020 Diabetes: Sensory Foot Exam 12/06/2020 Diabetes: Visual Foot Exam 12/06/2020 Influenza Vaccine (#1) 2024 Hepatitis B Vaccine Aged Out No longe r eligible based on patient's age to complete this topic Insurance [facility] MEDICARE [facility] Care Teams Tumblers Supervisor Relationship Specialty Start Date End Date Nikhil Knutson MD [address] [place] [address] PCP - General 11/03/22
--- OUTSIDE RECORDS SUMMARY | 2024-12-01 06:07 | XMS_ITS | Clinical Summary ---
Author Organization [facility] ity Address [address] [place] [address] Care Team Providers Care Loom Cleaner Name Role Phone Reggie Tam DO Primary Care Provider [phone] Social History Tobacco Use Types Packs/Day Years Used Date Smoking Tobacco: Never Assessed Sex and Gender Information Value Date Recorded Sex Assigned at Not on file Gender Identity Not on file Sexual Orientation Not on file Plan of Treatment Health Maintenance Due Date Last Done Comments DTaP,Tdap,and Td Vaccines (1 - Tdap) 1974 Zoster Vaccines (1 of 2) 2005 Pneumococcal Vaccine: 65+ Ye ars (1 of 1 - PCV) 2020 COVID-19 Vaccine ( - 2023-2 5 season) 2024 Influenza Vaccine (#1) 2024 RSV Immunization Patients 60 + Years Old (1 - 1-dose 75+ series) 2030 HIB Vaccines Aged Out No longer eligi ble based on patient's age to complete this topic HPV Vaccines Aged Out No longer eligi ble based on patient's age to complete this topic Hepatitis A Vaccines Aged Out No long er eligible based on patient's age to complete this topic Hepatitis B Vaccines Aged Out No long er eligible based on patient's age to complete this topic IPV Vaccines Aged Out No longer eligi ble based on patient's age to complete this topic MMR Vaccines Aged Out No longer eligi ble based on patient's age to complete this topic Meningococcal ACWY Vaccine Aged Out N o longer eligible based on patient's age to complete this topic RSV Immunization Patients Un jp 20 months Aged Out No longer eligible b ased on patient's age to complete this topic Varicella Vaccines Aged Out No longer eligible based on patient's age to complete this topic Care Teams Loom Cleaner Relationship Specialty Start Date End Date Reggie Tam DO [address] [address] PCP - General Family Medicine 10/05/17
--- OUTSIDE RECORDS SUMMARY | 2024-12-01 06:07 | XMS_ITS | Encounter Summary ---
Author Organization [facility] Address [address] [facility] [address] [place] [address] Phone Care Team Providers Care Light Rail Operator Name Role Phone Nikhil Knutson MD Primary Care Provider [phone] Encounter Details Date Type Department Care Team ([facility] st Contact Info) Description 10/09/2023 Office Communication [facility] [address] [facility] [address] [place] [phone] Ki Figueroa MD [address] [facility] [address] [place] [phone] Social History Tobacco Use Types Packs/Day Years [...] on file documented as of this encounter Miscellaneous Notes * Telephone Encounter - Ki Figueroa MD - 10/09/2023 9:59 AM EST Needs appt with me in the next 4-8 weeks documented in this encounter Plan of Treatment Not on file documented as of this encounter Visit Diagnoses Not on filedocumented in this encounter Care Teams Light Rail Operator Relationship Specialty Start Date End Date Nikhil Knutson MD [address] [place] [address] [address] [place] [address] PCP - General 11/03/22 documented as of this encounter
--- OUTSIDE RECORDS SUMMARY | 2024-12-01 06:07 | XMS_ITS | Encounter Summary ---
Author Organization [facility] Address [address] [facility] [address] [place] [address] Phone Care Team Providers Care Clinical Rehab Liaison Name Role Phone Nikhil Knutson MD Primary Care Provider [phone] Reason for Visit * Reason Comments Med Refill Encounter Details Date Type Department Care Team (Late st Contact Info) Description 02/08/2024 Refill [facility] [address] [place] [phone] Ki Figueroa MD [address] [facility] [address] [place] [phone] Hypertensive disorder Social History Tobacco Use Types [...] disorder documented in this encounter Care Teams Clinical Rehab Liaison Relationship Specialty Start Date End Date Nikhil Knutson MD [address] [facility] [address] [place], [place] [phone] PCP - General 11/03/22 documented as of this encounter
[2024-12-01 07:57] LABS: Anion Gap 13 (12-20); Blood Urea Nitrogen 25 mg/dL (9-16); Carbon Dioxide 26 mmol/L (22-29); Chloride 106 mmol/L (96-108); Estimated Glomerular Filt Rate 48; Potassium 4.6 mmol/L (3.3-5.1); Sodium 140 mmol/L (135-145)
[2024-12-01 08:20] LABS: Creatinine Urine 71.38 mg/dL; Protein/Creatinine Ratio, Ur 0.91 (<0.2); Total Protein Urine Random 65 mg/dL (<12)
== END 2024-12-01 06:06 | disposition home or self-care (01) ==
LOC: HO.LAB 06:05
PROVIDERS: PCP Internal Medicine; Visit Provider Internal Medicine Nephrology
DX: N18.32 Chronic kidney disease, stage 3b (principal); E11.21 Type 2 diabetes mellitus with diabetic nephropathy; I10 Essential (primary) hypertension
CPT/HCPCS: 36415; 80051; 82565; 82570; 84156; 84520

== ENCOUNTER 2024-12-11 10:03 | Outpatient (AMB) | payer MEDICARE, SELFPAY ==
--- OUTSIDE RECORDS SUMMARY | 2024-12-11 10:08 | XMS_ITS | Clinical Summary ---
Author Organization [facility] Facility Address [address] [address] Care Team Providers Care Brasswind Instrument Repairer Name Role Phone Nikhil Knutson MD Primary Care Provider [phone] Allergies No known active allergies Medications pravastatin [...] patient's age to complete this topic Insurance [facility] MEDICARE [facility] Care Teams Brasswind Instrument Repairer Relationship Specialty Start Date End Date Nikhil Knutson MD [address] [place] [address] PCP - General 11/03/22
--- OUTSIDE RECORDS SUMMARY | 2024-12-11 10:08 | XMS_ITS | Encounter Summary ---
Author Organization [facility] Address [address] [facility] [address] [place] [address] Phone Care Team Providers Care Director Product Name Role Phone Nikhil Knutson MD Primary Care Provider [phone]- [phone] Encounter Details Date Type Department Care Team ([facility] st Contact Info) Description 10/09/2023 Office Communication [facility] [address] [facility] [address] [place] [phone] Ki Figueroa MD [address] [facility] [address] [place] [phone] Social History Tobacco Use Types Packs/Day Years [...] on filedocumented in this encounter Care Teams Director Product Relationship Specialty Start Date End Date Nikhil Knutson MD [address] [place] [address] [address] [place] [address] PCP - General 11/03/22 documented as of this encounter
--- OUTSIDE RECORDS SUMMARY | 2024-12-11 10:08 | XMS_ITS | Encounter Summary ---
Author Organization [facility] Address [address] [facility] [address] [place] [address] Phone Care Team Providers Care Title Checker Name Role Phone Nikhil Knutson MD Primary Care Provider [phone]- [phone] Reason for Visit * Reason Comments Med Refill Encounter Details Date Type Department Care Team (Late st Contact Info) Description 02/08/2024 Refill [facility] [address] [place] [phone] Ki Figueroa MD [address] [facility] [address] [place] [phone] Hypertensive disorder Social History Tobacco Use Types [...] disorder documented in this encounter Care Teams Title Checker Relationship Specialty Start Date End Date Nikhil Knutson MD [address] [place], [place] [phone] PCP - General 11/03/22 documented as of this encounter
--- OUTSIDE RECORDS SUMMARY | 2024-12-11 10:08 | XMS_ITS | Encounter Summary ---
Author Organization [facility] Address [address] [facility] [address] [place] [address] Phone Care Team Providers Care Clerk Carrier Name Role Phone Nikhil Knutson MD Primary Care Provider [phone]- [phone] Reason for Visit * Reason Comments Med Refill Encounter Details Date Type Department Care Team (Late st Contact Info) Description 02/09/2024 Refill [facility] [address] [place] [phone] Ki Figueroa MD [address] [facility] [address] [place] [phone] Hypertensive disorder Social History Tobacco Use Types [...] disorder documented in this encounter Care Teams Clerk Carrier Relationship Specialty Start Date End Date Nikhil Knutson MD [address] [place], [place] [phone] PCP - General 11/03/22 documented as of this encounter
--- OUTSIDE RECORDS SUMMARY | 2024-12-11 10:08 | XMS_ITS | Encounter Summary ---
Author Organization [facility] Address [address] [place] [address] Phone Care Team Providers Care Dental Laboratory Manager Name Role Phone Nikhil Knutson MD Primary Care Provider +1- [phone] Reason for Visit * Reason Comments Med Refill Encounter Details Date Type Department Care Team (Late st Contact Info) Description 12/07/2023 Refill [facility] [address] [place] [phone] Ki Figueroa MD [address] [place] [phone] Renal disorder due to type 2 diabetes [...] (HCC) documented in this encounter Care Teams Dental Laboratory Manager Relationship Specialty Start Date End Date Nikhil Knutson MD [address] [address] [place] [address] PCP - General 11/03/22 documented as of this encounter
--- OUTSIDE RECORDS SUMMARY | 2024-12-11 10:08 | XMS_ITS | Clinical Summary ---
Author Organization [facility] ity Address [address] [place] [address] Care Team Providers Care Hydroelectric Plant Maintainer Name Role Phone Reggie Tam DO Primary Care Provider [phone] Social History Tobacco Use Types Packs/Day Years [...] age to complete this topic Care Teams Hydroelectric Plant Maintainer Relationship Specialty Start Date End Date Reggie Tam DO [address] [address] PCP - General Family Medicine 10/05/17
--- NOTE | 2024-12-11 10:26 | HO.NEPHOV_ITS ---
Vital Signs 12/11/24 10:36 Height 5 ft 6 in Weight 142 lb 2 oz BMI 22.9 BP 134/74 Blood Pressure Location Lt brachial Position Sitting Pulse 72 Pulse Source Pulse Oximeter Pulse Oximetry (%) 98 Oxygen Delivery Method Room Air Intake Visit Reasons: 3m follow up/ Conf Administrative Appeals Tribunal Member Required: No Accompanied by: Self / Same As Patient Allergies amlodipine Adverse Reaction (Intermediate, Verified 12/11/24 10:36) edema HPI Comments Details: Yrn was seen in follow up for management of his chronic kidney disease and hypertension. He has been a diabetic for over 10 years. He is known to have proteinuria. His blood pressure has been at goal. He does not have any edema. He has some prostatic symptoms. He has never had a renal biopsy. He denies any chest pain, shortness of breath, proximal nocturnal dyspnea, orthopnea, pedal edema, hematuria, epistaxis, photosensitivity, joint swellings, hematemesis, melena. He does not take any nonsteroidal anti-inflammatory medications. He hydrates himself very well. [facility] Medical History (Updated 12/09/24 @ 13:48 by Aubree Dacosta RN) Bilateral cataracts Cervical disc herniation Chronic kidney disease (CKD), stage III (moderate) Vitamin D deficiency Gout Lumbar degenerative disc disease Benign essential hypertension Pure hypercholesterolemia Proteinuria, unspecified Type 2 diabetes mellitus with diabetic chronic kidney disease Surgical History History of extraction of renal calculus History of cervical discectomy History of laminectomy Family History Father No problems noted. Mother No problems noted. Brother Diabetes Brother Heart problem Social History Household Members: Spouse Housing: House Alcohol intake: former Patient Tobacco Use Status: Former Tobacco user e-Cigarette/Vaping Use: Never Used Second Hand Smoke Exposure: No service: No Current occupational status: retired Cognitive needs: No Hearing needs: No Vision needs: No Review of Systems Const All systems reviewed & are unremarkable except as noted in HPI and below Physical Exam Vital Signs: Last Vital Signs Pulse 72 12/11/24 10:36 BP 134/74 12/11/24 10:36 Pulse Ox 98 12/11/24 10:36 Oxygen Delivery Method Room Air 12/11/24 10:36 BMI result Body Mass Index 22.9 Const General: comfortable and no acute distress Orientation/consciousness: patient oriented x3 HEENT Head: Yes normocephalic Mouth: Normal oral and palatal mucosa present Eyes EOM: EOMs intact bilaterally Neck Neck: Yes supple Resp Auscultation: clear to auscultation bilaterally Cardio Jugular venous distension: no JVD Rate: regular rate GI Palpation (GI): Soft to palpation Auscultation: normal bowel sounds General: Yes no CVA tenderness Back/Spine/Pelvis Back: no CVA tenderness Skin General skin exam: no rashes or lesions noted Neuro General: patient oriented x3 and moves all extremities Extrem General: Yes no pedal edema Results Reviewed Nephrology Results: Hgb 16.5 g/dl (14.0-18.0) 11/17/24 WBC 6.7 X10*3/uL (4.8-10.8) 11/17/24 Plt Count 177 X10*3/uL (160-400) 11/17/24 Sodium 140 mmol/L (135-145) 12/01/24 Potassium 4.6 mmol/L (3.3-5.1) 12/01/24 Chloride 106 mmol/L (96-108) 12/01/24 Carbon Dioxide 26 mmol/L (22-29) 12/01/24 BUN 25 mg/dL (9-16) H 12/01/24 Creatinine 1.45 mg/dL (0.5-1.4) H 12/01/24 Calcium 9.9 mg/dL (8.4-10.2) 11/17/24 Urine Protein 100 (2+) mg/dL (Neg-Trace) H 11/17/24 Urine Creatinine 71.38 mg/dL 12/01/24 Protein/Creatinin Ratio 0.91 (<0.2) H 12/01/24 Assessment & Plan Assessment & Plan (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 Category: Medical Qualifiers: Diabetes mellitus type: type 2 Qualified Code(s): E11.21 - Type 2 diabetes mellitus with diabetic nephropathy (2) Hypertension: Code(s): I10 - Essential (primary) hypertension Category: Medical Qualifiers: Hypertension type: primary hypertension Qualified Code(s): I10 - Essential (primary) hypertension (3) Chronic kidney disease (CKD), stage III (moderate): Code(s): N18.30 - Chronic kidney disease, stage 3 unspecified Category: Medical Qualifiers: Chronic kidney disease stage 3 subtype: stage 3b (GFR 30-44) Qualified Code(s): N18.32 - Chronic kidney disease, stage 3b Qasim Pool 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 He has not had proteinuria. He is on BERT-inhibitor. His serum potassium is normal. His blood pressure is at goal. His last hemoglobin A1c was 6. He hydrates himself well. He never had a renal biopsy. He should continue Jardiance 25 mg daily. He may need an alpha reyna if he has ongoing prostatic symptoms. He needs to keep his LDL low. I did not make any other medication changes today. All his questions were answered Orders: Orders Electrolytes 4 Months E11.21 - Type 2 diabetes mellitus with diabetic nephropathy, I10 - Essential (primary) hypertension, N18.32 - Chronic kidney disease, stage 3b Creatinine 4 Months E11.21 - Type 2 diabetes mellitus with diabetic nephropathy, I10 - Essential (primary) hypertension, N18.32 - Chronic kidney disease, stage 3b Blood Urea Nitrogen 4 Months E11.21 - Type 2 diabetes mellitus with diabetic nephropathy, I10 - Essential (primary) hypertension, N18.32 - Chronic kidney disease, stage 3b Protein Creatinine Ratio, Ur 4 Months E11.21 - Type 2 diabetes mellitus with diabetic nephropathy, I10 - Essential (primary) hypertension, N18.32 - Chronic kidney disease, stage 3b Coding Level of Care Code Est Pt Level 4 (22767) Diagnoses Diabetic nephropathy associated with type 2 diabetes mellitus E11.21 Diabetes mellitus type: type 2 Primary hypertension I10 Hypertension type: primary hypertension Stage 3b chronic kidney disease N18.32 Chronic kidney disease stage 3 subtype: stage 3b (GFR 30-44)
[2024-12-11 10:36] VITALS: BP 134/74; PULSE 72; O2SAT 98; BMI 22.9
== END 2024-12-11 10:49 | disposition home or self-care (01) ==
LOC: HO.HKAS 10:03
PROVIDERS: PCP Internal Medicine; Visit Provider Internal Medicine Nephrology
DX: E11.21 Type 2 diabetes mellitus with diabetic nephropathy (principal); I10 Essential (primary) hypertension; N18.32 Chronic kidney disease, stage 3b
CPT/HCPCS: 99214

== ENCOUNTER → 2024-12-11 10:03 | Outpatient (BNVA) | payer MEDICARE, SELFPAY | PROVIDERS: PCP Internal Medicine; Visit Provider Internal Medicine Nephrology | DX: E11.21 Type 2 diabetes mellitus with diabetic nephropathy (principal); E11.22 Type 2 diabetes mellitus with diabetic chronic kidney disease; I12.9 Hypertensive chronic kidney disease with stage 1 through stage 4 chronic kidney disease, or unspecified chronic kidney disease; N18.32 Chronic kidney disease, stage 3b | CPT/HCPCS: 99212 ==

== ENCOUNTER 2024-12-15 08:18 | Day surgery (SDC) | payer MEDICARE, SELFPAY ==
[2024-12-09 13:47] VITALS: BMI 23.1
--- NOTE | 2024-12-11 13:08 | P.CONAN_ITS ---
Documented by User: Thu Carreon NP 12/11/24 13:09 HPI - Anesthesia Eval Consult details Narrative: 69yo M for Right Cataract Extraction IOL Insertion No previous cataract on record Anesthesia Pre-Procedure Meds Is the patient on any of the following meds?: SGLT2 Inhib PMFSH Active Problems Active Problems: All Active Problems Preoperative clearance (Acute) Hypertension (Acute) Diabetic nephropathy (Acute) Acute kidney injury (Acute) Dysuria (Acute) Chronic kidney disease, stage 2 (mild) (Acute) Cervical disc herniation (Acute) Chronic kidney disease (CKD), stage III (moderate) (Acute) Vitamin D deficiency (Acute) Gout (Acute) Lumbar degenerative disc disease (Acute) Benign essential hypertension (Acute) Pure hypercholesterolemia (Acute) Proteinuria, unspecified (Acute) Type 2 diabetes mellitus with diabetic chronic kidney disease (Acute) Past Medical History Medical History Bilateral cataracts Cervical disc herniation Chronic kidney disease (CKD), stage III (moderate) Vitamin D deficiency Gout Lumbar degenerative disc disease Benign essential hypertension Pure hypercholesterolemia Proteinuria, unspecified Type 2 diabetes mellitus with diabetic chronic kidney disease Family History Family History Father No problems noted. Mother No problems noted. Brother Diabetes Brother Heart problem Surgical History Surgical History History of extraction of renal calculus History of cervical discectomy History of laminectomy Social History Social History Household Members: Spouse Housing: House Are you a primary senior caregiver to a significant other at home: No Do you presently have visiting nurse or other home services: No Alcohol intake: former Patient Tobacco Use Status: Former Tobacco user e-Cigarette/Vaping Use: Never Used Second Hand Smoke Exposure: No Use of substances other than those prescribed or required for medical reasons: No Have you been hit, kicked, punched, or otherwise hurt by someone within the past year? If so, by whom?: No Advance Directives: No Advance Directives Information Provided: Yes Nutrition Risks: No Nutritional Risk Poor oral hygiene: No service: No Current occupational status: retired Cognitive needs: No Hearing needs: No Vision needs: No Meds Allergies Allergy/AdvReac Type Severity Reaction Status Date / Time amlodipine AdvReac Intermediate edema Verified 12/15/24 09:26 Home Medications ?Medication ?Instructions ?Recorded ?Confirmed ?Last Taken ?Type cholecalciferol (vitamin D3) 25 25 mcg PO DAILY 10/11/20 12/09/24 Unknown History mcg (1,000 unit) capsule omega-3 fatty acids 1,000 mg 1,000 mg PO DAILY 01/13/21 12/09/24 Unknown History capsule (Fish Oil Concentrate) Exam Height,Weight and Vital Signs: Height 5 ft 6 in Weight 65.034 kg Assessment and Plan Assessment Anesthesia Assessment: Chart Reviewed Documented by User: Deb Irizarry MD 12/15/24 09:44 [facility] Past Medical History Medical History Bilateral cataracts Cervical disc herniation Chronic kidney disease (CKD), stage III (moderate) Vitamin D deficiency Gout Lumbar degenerative disc disease Benign essential hypertension Pure hypercholesterolemia Proteinuria, unspecified Type 2 diabetes mellitus with diabetic chronic kidney disease Family History Family History Father No problems noted. Mother No problems noted. Brother Diabetes Brother Heart problem Surgical History Surgical History History of extraction of renal calculus History of cervical discectomy History of laminectomy History of Problems with Anesthesia: No Social History Social History Household Members: Spouse Housing: House Are you a primary senior caregiver to a significant other at home: No Do you presently have visiting nurse or other home services: No Alcohol intake: former Patient Tobacco Use Status: Former Tobacco user e-Cigarette/Vaping Use: Never Used Second Hand Smoke Exposure: No Use of substances other than those prescribed or required for medical reasons: No Have you been hit, kicked, punched, or otherwise hurt by someone within the past year? If so, by whom?: No Advance Directives: No Advance Directives Information Provided: Yes Nutrition Risks: No Nutritional Risk Poor oral hygiene: No service: No Current occupational status: retired Cognitive needs: No Hearing needs: No Vision needs: No Meds Allergies Allergy/AdvReac Type Severity Reaction Status Date / Time amlodipine AdvReac Intermediate edema Verified 12/15/24 09:26 Home Medications ?Medication ?Instructions ?Recorded ?Confirmed ?Last Taken ?Type cholecalciferol (vitamin D3) 25 25 mcg PO DAILY 10/11/20 12/09/24 Unknown History mcg (1,000 unit) capsule omega-3 fatty acids 1,000 mg 1,000 mg PO DAILY 01/13/21 12/09/24 Unknown History capsule (Fish Oil Concentrate) Exam Airway Mallampati Class: III TM Dist: >3cm Neck ROM: Full Partial: Lower Loose/Missing/Broken Teeth: Yes and Lower Heart: RRR Lungs: CTA Assessment and Plan Assessment Anesthesia Assessment: Anesthesia Plan Discussed Final Anesthetic Review History of Problems with Anesthesia: No NPO: Yes ASA Class: III Final Preanesthetic Review: Meds/Allgs Chart Reviewed, Consent Obtained/Reviewed and Anes Risks/Benef Reviewed Patient Risk: Intermediate Procedure Risk: Low Anesthetic Plan Anesthetic Plan: MAC: Disposition: Standard PACU
--- OUTSIDE RECORDS SUMMARY | 2024-12-15 08:31 | XMS_ITS | Clinical Summary ---
Author Organization [facility] Facility Address [address] [address] Care Team Providers Care Test Developer Name Role Phone Nikhil Knutson MD Primary Care Provider [phone]- [phone] Allergies No known active allergies Medications pravastatin [...] patient's age to complete this topic Insurance [facility] MEDICARE [facility] Care Teams Test Developer Relationship Specialty Start Date End Date Nikhil Knutson MD [address] [place] [address] PCP - General 11/03/22
--- OUTSIDE RECORDS SUMMARY | 2024-12-15 08:31 | XMS_ITS | Encounter Summary ---
Author Organization [facility] Address [address] [facility] [address] [place] [address] Phone Care Team Providers Care Dry Cure Worker Name Role Phone Nikhil Knutson MD Primary Care Provider +1- [phone] Reason for Visit * Reason Comments Med Refill Encounter Details Date Type Department Care Team (Late st Contact Info) Description 02/09/2024 [facility]ill [facility] [address] [place] [phone] Ki Figueroa MD [address] [facility] [address] [place] [phone] Hypertensive disorder Social History Tobacco Use Types [...] disorder documented in this encounter Care Teams Dry Cure Worker Relationship Specialty Start Date End Date Nikhil Knutson MD [address] [place], [place] [phone] PCP - General 11/03/22 documented as of this encounter
--- OUTSIDE RECORDS SUMMARY | 2024-12-15 08:32 | XMS_ITS | Clinical Summary ---
Author Organization [facility] ity Address [address] [place] [address] Care Team Providers Care Diesel Powerplant Mechanic Helper Name Role Phone Reggie Tam DO Primary Care Provider [phone] Social History Tobacco Use Types Packs/Day Years Used Date Smoking Tobacco: Never Assessed Sex and Gender Information Value Date Recorded Sex Assigned at Not on file Legal Sex Male 2:58 AM EST Gender Identity Not on file Sexual Orientation Not on file Plan of Treatment Health Maintenance Due Date Last Done Comments DTaP,Tdap,and Td Vaccines (1 - Tdap) 1962 Pneumococcal Vaccine: 50+ Ye ars (1 of 1 - PCV) 2005 Zoster Vaccines (1 of 2) 2005 COVID-19 Vaccine (1 - 2023-2 5 season) 2024 Influenza Vaccine [...] patient's age to complete this topic Meningococcal B Vacine Aged Out No lo nger eligible based on patient's age to complete this topic RSV Immunization Patients Un jp 20 months Aged Out No longer eligible b ased on patient's age to complete this topic Varicella Vaccines Aged Out No longer eligible based on patient's age to complete this topic Care Teams Diesel Powerplant Mechanic Helper Relationship Specialty Start Date End Date Reggie Tam DO [address] [place] [address] PCP - General Family Medicine 10/05/17
--- OUTSIDE RECORDS SUMMARY | 2024-12-15 08:32 | XMS_ITS | Encounter Summary ---
Author Organization [facility] Address [address] [place] [address] Phone Care Team Providers Care Felt Hanger Name Role Phone Nikhil Knutson MD Primary Care Provider [phone]- [phone] Reason for Visit * Reason Comments Med Refill Encounter Details Date Type Department Care Team (Late st Contact Info) Description 12/07/2023 Refill [facility] [address] [place] [phone] Ki Figueroa MD [address] [place] [phone] Renal disorder due to type 2 diabetes [...] (HCC) documented in this encounter Care Teams Felt Hanger Relationship Specialty Start Date End Date Nikhil Knutson MD [address] [place] [address] PCP - General 11/03/22 documented as of this encounter
--- OUTSIDE RECORDS SUMMARY | 2024-12-15 08:32 | XMS_ITS | Encounter Summary ---
Author Organization [facility] Address [address] [facility] [address] [place] [address] Phone Care Team Providers Care Quality Audit Representative Name Role Phone Nikhil Knutson MD Primary Care Provider [phone]- [phone] Encounter Details Date Type Department Care Team ([facility] st Contact Info) Description 10/09/2023 Office Communication [facility] [address] [facility] [address] [place] [phone] Ki Figueroa MD [address] [facility] [address] [place] [phone] Social History Tobacco Use Types Packs/Day Years [...] on filedocumented in this encounter Care Teams Quality Audit Representative Relationship Specialty Start Date End Date Nikhil Knutson MD [address] [place] [address] DR[address] [place] [address] PCP - General 11/03/22 documented as of this encounter
--- OUTSIDE RECORDS SUMMARY | 2024-12-15 08:32 | XMS_ITS | Encounter Summary ---
Author Organization [facility] Address [address] [facility] [address] [place] [address] Phone Care Team Providers Care Shredded Filler Hopper Feeder Name Role Phone Nikhil Knutson MD Primary Care Provider [phone]- [phone] Reason for Visit * Reason Comments Med Refill Encounter Details Date Type Department Care Team (Late st Contact Info) Description 02/08/2024 Refill [facility] [address] [place] [phone] Ki Figueroa MD [address] [facility] [address] [place] [phone] Hypertensive disorder Social History Tobacco Use Types [...] disorder documented in this encounter Care Teams Shredded Filler Hopper Feeder Relationship Specialty Start Date End Date Nikhil Knutson MD [address] [place], [place] [phone] PCP - General 11/03/22 documented as of this encounter
[2024-12-15 08:59] VITALS: BP 124/67; PULSE 67; RESP 14; TEMP 37; O2SAT 97; BMI 22.4
[2024-12-15] MEDS: Lactated Ringers 500 ML 50 ML IV (09:24)
[2024-12-15] MEDS: Cyclopentolate 1 % Ophth Sol 2 ML DRPBTL 1 DROP EYE-RIGHT ×3 (09:25→09:33)
[2024-12-15] MEDS: Tropicamide 1 % Ophth Sol 3 ML BTL 1 DROP EYE-RIGHT ×3 (09:28→09:34)
[2024-12-15] MEDS: Ketorolac Tromethamine 0.5% Op 5 ML DROPS 1 DROP EYE-RIGHT ×3 (09:29→09:34)
[2024-12-15] MEDS: Phenylephrine HCL 2.5% Oph SoL 2 ML BOTTLE 1 DROP EYE-RIGHT ×3 (09:30→09:35)
[2024-12-15 09:47] LABS: Glucose, Whole Blood 202 mg/dL (60-115)
--- NOTE | 2024-12-15 09:53 | P.PCNO_ITS ---
Ophthalmology Procedure Procedure Date of Service: 12/15/24 Ophthalmology Viscoelastic: Healon Duet Dual Pack Pro Ophthalmology Lenses: IOL Acrysof MP - MA60AC (20) Procedure Notes: PREOPERATIVE DIAGNOSIS: Decreased visual acuity right eye secondary to cataract POSTOPERATIVE DIAGNOSIS: Same PROCEDURE: Right cataract extraction with intraocular lens insertion SURGEON: Maximino Alvarenga M.D. ANESTHESIA: Topical/MAC ESTIMATED BLOOD LOSS: None COMPLICATIONS: None After obtaining informed consent, the patient was brought to the operating room suite and placed in the supine position. After adequate sedation per anesthesia, topical drops of Tetracaine were given to the right eye. The eye was then prepped and draped in the usual sterile fashion. The operating room microscope was then positioned over the operative eye and a lid speculum placed. A paracentesis was created. Viscoelastic was then instilled into the anterior chamber. A three plane incision was then created temporally, utilizing a 2.85 mm keratome. Capsulotomy forceps were then utilized to create a circular tear capsulotomy. Hydrodissection and hydrodelineation were carried out until adequate mobilization of the nucleus occurred. Phacoemulsification was then utilized to remove the dense central nucl eus followed by removal of the cortical material utilizing the automated aspiration irrigation unit. Viscoelastic was instilled into the posterior capsular bag followed by placement of a posterior chamber intraocular lens without difficulty. The residual Viscoelastic was then removed utilizing the automated IA machine. The wound was checked and found to be watertight. The patient tolerated the procedure well and the lid speculum was removed. Intracameral injection of Vigamox 0.1 mL followed by a subtenon injection of Kenalog-40 0.2 mL were administered. The patient will be seen in the a.m.
--- NOTE | 2024-12-15 09:53 | MHC.SHP ---
Pre-Procedural Eval Section A - 24 Hr Update-Section A only Date of Service: 12/15/24 The patient is an INPATIENT: No Changes since office visit: No Cold of Flu in the past 2 weeks, No New Medical Problems, No Changes in Medication and No Patient answered all questions The patient has been examined within 24 hours of the surgical procedure. The History & Physical has been completed within 30 days and I have reviewed it.: Yes Section B - Complete if H&P > 30 days Chief Complaint: Age-related nuclear cataract, right eye Allergies: Allergies Allergy/AdvReac Type Severity Reaction Status Date / Time amlodipine AdvReac Intermediate edema Verified 12/15/24 09:26 Plan Diagnosis/Plan: Unchanged I have reviewed the history and physical and performed a pertinent physical examination on my patient. No changes have occurred unless specified. Time Spent With Patient Time: Total time managing care of this patient today ____ minutes.
[2024-12-15 10:18] VITALS: BP 113/60; PULSE 68; RESP 20; TEMP 37.1; O2SAT 97
== END 2024-12-15 10:28 | disposition home or self-care (01) ==
PROVIDERS: PCP Internal Medicine; Visit Provider Ophthalmology
PROC: (CPT 66985; principal; 2024-12-15 10:30)
DX: H25.11 Age-related nuclear cataract, right eye (principal); H52.4 Presbyopia; H40.013 Open angle with borderline findings, low risk, bilateral; H40.033 Anatomical narrow angle, bilateral; H35.033 Hypertensive retinopathy, bilateral; H11.153 Pinguecula, bilateral; E11.22 Type 2 diabetes mellitus with diabetic chronic kidney disease; I12.9 Hypertensive chronic kidney disease with stage 1 through stage 4 chronic kidney disease, or unspecified chronic kidney disease; N18.31 Chronic kidney disease, stage 3a; E78.00 Pure hypercholesterolemia, unspecified; E55.9 Vitamin D deficiency, unspecified; M10.00 Idiopathic gout, unspecified site; Z79.84 Long term (current) use of oral hypoglycemic drugs; Z79.899 Other long term (current) drug therapy; Z87.891 Personal history of nicotine dependence
CPT/HCPCS: 66984; 82947; J2250; J3301; V2630

== ENCOUNTER 2025-01-08 06:06 | Outpatient (REF) | payer MEDICARE, SELFPAY ==
--- OUTSIDE RECORDS SUMMARY | 2025-01-08 06:10 | XMS_ITS | Encounter Summary ---
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
--- OUTSIDE RECORDS SUMMARY | 2025-01-08 06:10 | XMS_ITS | Clinical Summary ---
Author Organization [facility] Facility Address [address] [address] Care Team Providers Care Security Guards Dispatcher Name Role Phone Nikhil Knutson MD Primary Care Provider +1- [phone] Allergies No known active allergies Medications pravastatin [...] patient's age to complete this topic Insurance [facility] MEDICARE [facility] Care Teams Security Guards Dispatcher Relationship Specialty Start Date End Date Nikhil Knutson MD [address] [place] [address] PCP - General 11/03/22
--- OUTSIDE RECORDS SUMMARY | 2025-01-08 06:10 | XMS_ITS | Encounter Summary ---
Author Organization [facility] Address [address] [facility] [address] [place] [address] Phone Care Team Providers Care Customer Manager Name Role Phone Nikhil Knutson MD Primary Care Provider +1- [phone] Reason for Visit * Reason Comments Med Refill Encounter Details Date Type Department Care Team (Late st Contact Info) Description 02/09/2024 Refill [facility] [address] [place] [phone] Ki Figueroa MD [address] [facility] [address] [place] [phone] Hypertensive disorder Social History Tobacco Use Types [...] disorder documented in this encounter Care Teams Customer Manager Relationship Specialty Start Date End Date Nikhil Knutson MD [address] [place], [place] [phone] PCP - General 11/03/22 documented as of this encounter
--- OUTSIDE RECORDS SUMMARY | 2025-01-08 06:10 | XMS_ITS | Encounter Summary ---
Author Organization [facility] Address [address] [facility] [address] [place] [address] Phone Care Team Providers Care Floating Derrick Operator Name Role Phone Nikhil Knutson MD Primary Care Provider +1- [phone] Reason for Visit * Reason Comments Med Refill Encounter Details Date Type Department Care Team (Late st Contact Info) Description 02/08/2024 Refill [facility] [address] [place] [phone] Ki Figueroa MD [address] [facility] [address] [place] [phone] Hypertensive disorder Social History Tobacco Use Types [...] disorder documented in this encounter Care Teams Floating Derrick Operator Relationship Specialty Start Date End Date Nikhil Knutson MD [address] [place], [place] [phone] PCP - General 11/03/22 documented as of this encounter
--- OUTSIDE RECORDS SUMMARY | 2025-01-08 06:10 | XMS_ITS | Encounter Summary ---
Author Organization [facility] Address [address] [facility] [address] [place] [address] Phone Care Team Providers Care Sawmill Supervisor Name Role Phone Nikhil Knutson MD Primary Care Provider +1- [phone] Encounter Details Date Type Department Care Team ([facility] st Contact Info) Description 10/09/2023 Office Communication [facility] [address] [facility] [address] [place] [phone] Ki Figueroa MD [address] [facility] [address] [place] [phone] Social History Tobacco Use Types Packs/Day Years [...] on filedocumented in this encounter Care Teams Sawmill Supervisor Relationship Specialty Start Date End Date Nikhil Knutson MD [address] [place] [address] DR[address] [place] [address] PCP - General 11/03/22 documented as of this encounter
--- OUTSIDE RECORDS SUMMARY | 2025-01-08 06:10 | XMS_ITS | Clinical Summary ---
Author Organization [facility] ity Address [address] [place] [address] Care Team Providers Care Shorthand Reporter Name Role Phone Reggie Tam DO Primary Care Provider Social History Tobacco Use Types Packs/Day Years Used Date Smoking Tobacco: Never Assessed Sex and Gender Information Value Date Recorded Sex Assigned at Not on file Legal Sex Male 2:58 AM EST Gender Identity Not on file Sexual Orientation Not on file Plan of Treatment Health Maintenance Due Date Last Done Comments DTaP,Tdap,and Td Vaccines (1 - Tdap) 1974 Pneumococcal Vaccine: 50+ Ye ars (1 of 1 - PCV) 2005 Zoster Vaccines (1 of 2) 2005 COVID-19 Vaccine ( - 2023-2 5 season) [...] age to complete this topic Care Teams Shorthand Reporter Relationship Specialty Start Date End Date Reggie Tam DO [facility] [place] [address] PCP - General Family Medicine 10/05/17
[2025-01-08 06:31] LABS: MANUAL DIFF FLAG NO
[2025-01-08 07:27] LABS: Appearance Urine Clear; Color Urine Yellow; Glucose Urine UA >=1000 mg/dL (Negative); Leukocyte Esterase Urine Negative (Negative); Nitrite Urine Negative (Negative); PH 5.5 (5.0-9.0); UMIC TRIGGER UACC YES; Urine Blood Negative (Negative); Urine Ketones Trace mg/dL (Negative); Urine Protein 30 (1+) mg/dL (Neg-Trace)
[2025-01-08 07:27] LABS: Basophils Percent Auto 0.7 % (0-2); Eosinophils Absolute Auto 0.1 X10*3/uL (0.0-0.4); Eosinophils Percent Auto 1.7 % (0-4); Hematocrit 49.4 % (42.0-52.0); Hemoglobin 15.6 g/dl (14.0-18.0); Imm Gran Abs Auto 0.02 X10*3/uL (0.00-0.03); Imm Gran Pct Auto 0.3 % (0.0-0.4); Lymphocytes Percent Auto 17.5 % (20-40); Mean Corpuscular HGB Conc 31.6 g/dl (31.0-36.0); Mean Corpuscular Hemoglobin 26.7 pg (27.0-33.0); Mean Corpuscular Volume 84.6 fL (80.0-98.0); Mean Platelet Volume 9.5 fL (9.4-12.4); Monocytes Absolute Auto 0.4 X10*3/uL (0.1-1.2); Monocytes Percent Auto 7.1 % (2-11); Neutrophils Absolute Auto 4.2 x10*3/uL (2.0-8.3); Neutrophils Percent Auto 72.7 % (45-73); Platelet Count 200 X10*3/uL (160-400); Red Blood Count 5.84 X10*6/uL (4.60-5.80); White Blood Count 5.8 X10*3/uL (4.8-10.8)
[2025-01-08 07:36] LABS: Bacteria Urine None Seen (None Seen); Hyaline Casts Urine 0-2 /LPF (0-2); RBC Urine 0-2 /HPF (0-2); Squamous Epithelial Cell Urine 0-2 /HPF (0-2); WBC Urine 0-5 /HPF (0-5)
[2025-01-08 07:41] LABS: Estimated Average Glucose 154 mg/dL
[2025-01-08 08:04] LABS: Alanine Aminotransferase 32 U/L (0-40); Anion Gap 12 (12-20); Aspartate Amino Transferase 32 U/L (5-37); Bilirubin Total 0.7 mg/dL (0.0-1.0); Blood Urea Nitrogen 24 mg/dL (9-16); Calcium 9.7 mg/dL (8.4-10.2); Carbon Dioxide 26 mmol/L (22-29); Chloride 105 mmol/L (96-108); Cholesterol 146 mg/dL (<200); Estimated Glomerular Filt Rate 46; Glucose Fasting 158 mg/dL (60-99); HDL Cholesterol 45 mg/dL (>40); LDL Cholesterol Calculated 77 mg/dL (<100); Potassium 4.6 mmol/L (3.3-5.1); Sodium 138 mmol/L (135-145); Total Protein 6.8 g/dL (6.5-8.0); Triglycerides 122 mg/dL (<150); Uric Acid 7.6 mg/dL (3.4-7.0)
[2025-01-08 08:10] LABS: Alkaline Phosphatase 47 U/L (39-117)
[2025-01-08 08:20] LABS: TSH reflex Free T4 2.65 uIU/mL (0.32-4.0); Vitamin D 25-OH Total 43.6 ng/mL (>30)
[2025-01-08 08:25] LABS: Creatinine Urine 90.76 mg/dL; Microalbum/Creatinine Ratio Ur 297.4 ug/mg cr (<30)
== END 2025-01-08 06:07 | disposition home or self-care (01) ==
LOC: HO.LAB 06:06
PROVIDERS: PCP Internal Medicine
DX: I10 Essential (primary) hypertension (principal); N18.31 Chronic kidney disease, stage 3a; E11.22 Type 2 diabetes mellitus with diabetic chronic kidney disease; M10.00 Idiopathic gout, unspecified site; E55.9 Vitamin D deficiency, unspecified; E78.00 Pure hypercholesterolemia, unspecified; N18.32 Chronic kidney disease, stage 3b; N17.9 Acute kidney failure, unspecified; E11.21 Type 2 diabetes mellitus with diabetic nephropathy
CPT/HCPCS: 36415; 80053; 80061; 81001; 82043; 82306; 82570; 83036; 84443; 84550; 85025

== ENCOUNTER 2025-01-12 13:16 | Outpatient (AMB) | payer MEDICARE, SELFPAY ==
--- NOTE | 2025-01-12 13:23 | A.OFFPC_ITS ---
Vital Signs 01/12/25 13:24 Height 5 ft 6 in Weight 140 lb 6 oz BMI 22.7 BP 110/66 Blood Pressure Location Lt brachial Position Sitting Pulse 76 Pulse Source Pulse Oximeter Temp 97.7 F Temp Source Temporal Artery Scan Pulse Oximetry (%) 97 Oxygen Delivery Method Room Air Intake Visit Reasons: PREOP Intake Note: Patient is here for a Pre-op for Cataract for left eye scheduled with Dr Alvarenga on 01/19/25. Business Continuity Director Required: No Biology Laboratory Assistant: Not Required per policy Accompanied by: Self / Same As Patient Allergies amlodipine Adverse Reaction (Intermediate, Verified 01/12/25 13:43) edema Medication List - Last Reconciled 01/12/25 by NNAMDI Brown blood sugar diagnostic 1 strip miscellaneous DAILY 30 days cholecalciferol (vitamin D3) 25 mcg PO DAILY empagliflozin (Jardiance) 25 mg PO QAM 90 days glipizide ER 5 mg PO DAILY hydralazine 50 mg PO TID 90 days labetalol 200 mg PO BID 90 days lisinopril 20 mg PO DAILY 90 days metformin ER 500 mg PO BEDTIME omega-3 fatty acids (Fish Oil Concentrate) 1,000 mg PO DAILY pravastatin 40 mg PO DAILY Tobacco use date assessed: 01/12/25 Fall risk assessment: No Falls in past year Last assessed Fall Risk: 01/12/25 Dental Screening Dental Screen Date: 01/12/25 HPI PREOP HPI Details The patient is a 69-year-old male who was presenting today for preop clearance Patient of Dr. Knutson Surgery: Cataract surgery on 01/19/2025 of the left eye due to cataract, nuclear age-related, bilateral OU Patient was diagnosed with narrow angle glaucoma suspect, bilateral OU The patient was also diagnosed with hypertensive retinopathy, bilateral OU The patient is a type 2 diabetic controlled metformin 500 mg at bedtime, glipizide 5 mg really and Jardiance 25 mg daily His last A1c on 01/08/2025 was 7% Surgeon/location:Maximino Daniels, at [facility] Anesthesia: Local The patient denies history of perioperative hypothermia her blood clotting disorders. He is not on anticoagulation Medical history is significant for hypertension, chronic kidney disease stage 3, type 2 diabetes, hypercholesterolemia, vitamin-D deficiency and lumbar disc disease The patient denies chest pain, shortness of breath, heart palpitation, dizziness or feeling faint Will stop jardiance for 3 days before surgery hold all other medications except hydralazine 50 mg and labetalol 200mg on the morning of surgery restarted allopurinol 100mg daily, uric acid 7.6 since it was discontinued, ex plained to the patient that this is only going to increased The patient reports that he wants to get off his metformin medication. That he has been reading online about the side effects of metformin and he is worried that he already has kidney issues. Discussed with patient about not wanting to make any changes prior to his operation. On his previous visit, a 3-month follow up appointment was made to discussed these issues with the patient and make appropriate changes COUNT INCLUDES THE [facility] Medical History Bilateral cataracts Cervical disc herniation Chronic kidney disease (CKD), stage III (moderate) Vitamin D deficiency Gout Lumbar degenerative disc disease Benign essential hypertension Pure hypercholesterolemia Proteinuria, unspecified Type 2 diabetes mellitus with diabetic chronic kidney disease Surgical History History of right cataract surgery History of extraction of renal calculus History of cervical discectomy History of laminectomy Family History Father No problems noted. Mother No problems noted. Brother Diabetes Brother Heart problem Social History Household Members: Spouse Housing: House Are you a primary acute care registered nurse to a significant other at home: No Do you presently have visiting nurse or other home services: No Alcohol intake: former Patient Tobacco Use Status: Former Tobacco user e-Cigarette/Vaping Use: Never Used Second Hand Smoke Exposure: Yes service: No Current occupational status: retired Cognitive needs: No Hearing needs: No Vision needs: No Questionnaire Thrive Questionnaire Date Thrive assessed: 11/24/24 PB-7 AMB Questionnaire PB-7 Date PB - 7 assessed: 11/24/24 Source: Developed by Drs. Tray Benoit, Frannie Tolentino, Jarett Santiago and colleagues, with an educational karlos from [employer]. Review of Systems Const Denies headache(s) Eyes Denies change in vision (hx of cataract, post-right eye surgery, left eye surgery on 12/22/24) ENT Denies vertigo, Denies dizziness, Denies headache(s) and Denies sore throat Card Denies chest pain, Denies leg edema and Denies lightheadedness Resp Denies cough, Denies hemoptysis and Denies wheezing GI Denies abdominal pain, Denies melena, Denies constipation, Denies diarrhea and Denies vomiting Denies dysuria, Denies urinary frequency and Denies urinary urgency Musc Denies arthralgias, Denies joint swelling, Denies numbness and Denies tingling Neuro Denies Abnormal speech present, Denies behavioral changes, Denies vertigo, Denies dizziness, Denies headache(s), Denies memory loss, Denies numbness and Denies tingling Psych Denies anxiety, Denies behavioral changes, Denies depression, Denies memory loss and Denies panic attacks Gaurang/Lymph Denies easy bleeding and Denies easy bruising Aller/Immun Denies wheezing Physical exam (Primary Care) Vital Signs: Last Vital Signs Temp 97.7 F 01/12/25 13:24 Pulse 76 01/12/25 13:24 BP 110/66 01/12/25 13:24 Pulse Ox 97 01/12/25 13:24 Oxygen Delivery Method Room Air 01/12/25 13:24 BMI result Body Mass Index 22.7 Tobacco/Smoking Status: Tobacco use Status Tobacco use date assessed 01/12/25 01/12/25 13:29 Patient Tobacco Use Status Former Tobacco user 01/12/25 13:29 e-Cigarette/Vaping Use Never Used 01/12/25 13:29 Thrive Assessment: Date of Thrive Assessment Date Thrive assessed 11/24/24 01/12/25 13:29 Const General: healthy appearing, no acute distress, alert and awake Nutritional Appearance: well nourished Orientation/consciousness: oriented to person, oriented to place and oriented to time HENMT Ears: TM's normal bilaterally General nose exam: Normal nasal mucous membranes and turbinates present Eyes Conjunctivae: conjunctivae normal Sclerae: sclerae normal Pupils: Equal, round and reactive pupils present Neck Neck: Yes no lymphadenopathy and Yes no JVD Thyroid: Thyroid normal Carotids: no bruits Resp Effort & Inspection: normal respiratory effort and not tachypneic Auscultation: no crackles, no rales, no rhonchi and no wheezes Cardio Rate: regular rate Rhythm: regular rhythm Heart sounds: no murmurs and normal S1 and S2 GI Palpation (GI): Soft to palpation, nontender, no hepatomegaly and no splenomegaly Auscultation: normal bowel sounds Skin General skin exam: no rashes or lesions noted and dry skin Neuro General: oriented to person, oriented to place and oriented to time Cranial nerves: Yes Equal, round and reactive pupils present Speech: No Abnormal speech present Gait exam (Neuro): Antalgic gait present Motor exam (neuro): no tremor noted Extrem Right upper extremity: full ROM Left upper extremity: full ROM Right lower extremity: full ROM; no edema Left lower extremity: full ROM; no edema Psych Mental Status: mental status grossly normal Speech and movement: Normal speech and movement present Affect: normal affect Attitude: cooperative Thought process: Normal thought process present Results Reviewed Results Reviewed: Laboratory Tests 01/08/25 01/08/25 06:26 06:30 WBC 5.8 RBC 5.84 H Hgb 15.6 Hct 49.4 Plt Count 200 Sodium 138 Potassium 4.6 Chloride 105 Carbon Dioxide 26 BUN 24 H Creatinine 1.51 H Estimated GFR 46 Fasting Glucose 158 H Hemoglobin A1c % 7.0 H Uric Acid 7.6 H AST 32 ALT 32 Alkaline Phosphatase 47 Triglycerides 122 Cholesterol 146 LDL Cholesterol, Calc 77 HDL Cholesterol 45 25-OH Vitamin D Total 43.6 TSH 2.65 Urine Color Yellow Urine Appearance Clear Urine pH 5.5 Ur Specific [place] 1.020 Urine Protein 30 (1+) H Urine Glucose (UA) >=1000 H Urine Ketones Trace Urine Blood Negative Urine Nitrite Negative Ur Leukocyte Esterase Negative Urine RBC 0-2 Urine WBC 0-5 Ur Squamous Epith Cells 0-2 Urine Bacteria None Seen Hyaline Casts 0-2 Urine Creatinine 90.76 Urine Microalbumin 270.0 Microalb/Creat Ratio 297.4 H Coding Level of Care Code Est Pt Level 4 (30565) Diagnoses Preoperative clearance Z01.818 Benign essential hypertension I10 Pure hypercholesterolemia E78.00 Type 2 diabetes mellitus with stage 3a chronic kidney disease, without long-term current use of insulin E11.22; N18.31 Diabetes mellitus intermediate insulin use: without termite helper use Chronic kidney disease stage: stage 3 (moderate) Chronic kidney disease stage 3 subtype: stage 3a (GFR 45-59) Stage 3b chronic kidney disease N18.32 Chronic kidney disease stage 3 subtype: stage 3b (GFR 30-44) Idiopathic gout, unspecified chronicity, unspecified site M10.00 Gout site: unspecified site Gout etiology: idiopathic Chronicity: unspecified Vitamin D deficiency E55.9 Degeneration of intervertebral disc of lumbar region, unspecified whether pain present M51.369 Disc-related pain type: unspecified whether pain present Time Spent (min) 38 Assessment & Plan Assessment & Plan (1) Preoperative clearance: Code(s): Z01.818 - Encounter for other preprocedural examination Category: Medical Plan: Regarding preop clearance month the patient is at acceptable risk for proposed surgery. Reviewed with the patient that no surgery is completely free of risk and that this examination is to assist the surgeon in reviewing informed consent. Discussed with patient to hold Jardiance 3 days prior to surgery, all other medications the morning of surgery, except hydralazine 50 mg and labetalol 200 mg he should take with sips of water. (2) Benign essential hypertension: Code(s): I10 - Essential (primary) hypertension Category: Medical Plan: Reinforced low-sodium diet Continue lisinopril 20 mg daily, labetalol 200 mg b.i.d. hydralazine 50 mg t.i.d. Monitor blood pressure regularly (3) Pure hypercholesterolemia: Code(s): E78.00 - Pure hypercholesterolemia, unspecified Category: Medical Plan: Reinforced a diet low in cholesterol and activity as tolerated Continue pravastatin 40 mg daily (4) Type 2 diabetes mellitus with diabetic chronic kidney disease: Code(s): E11.22 - Type 2 diabetes mellitus with diabetic chronic kidney disease Category: Medical Qualifiers: Diabetes mellitus termite helper insulin use: without intermediate use Chronic kidney disease stage: stage 3 (moderate) Chronic kidney disease stage 3 subtype: stage 3a (GFR 45-59) Qualified Code(s): E11.22 - Type 2 diabetes mellitus with diabetic chronic kidney disease; N18.31 - Chronic kidney disease, stage 3a Plan: The patient A1c is 7% Reinforced a diet low in sugar/carbohydrate activity as tolerated Continue glipizide 5 mg daily, metformin 500 mg at bedtime, in Jardiance 25 mg daily We will repeat labs in 3 months (5) Chronic kidney disease (CKD), stage III (moderate): Code(s): N18.30 - Chronic kidney disease, stage 3 unspecified Category: Medical Qualifiers: Chronic kidney disease stage 3 subtype: stage 3b (GFR 30-44) Qualified Code(s): N18.32 - Chronic kidney disease, stage 3b Plan: Patient kidney function slightly decreased Follow up with Nephrology as scheduled (6) Gout: Code(s): M10.9 - Gout, unspecified Category: Medical Qualifiers: Gout site: unspecified site Gout etiology: idiopathic Chronicity: unspecified Qualified Code(s): M10.00 - Idiopathic gout, unspecified site Plan: Patient requested to be taken off allopurinol on his previous visit.Reports that he has not have any gout flare up for a long time Uric acid on 11/17/2024 5.8, rechecked labs on 01/08/25 urice acid increased to 7/6, discussed with the patient that this is going to increased. The patient agrees to be started back on allopurinol 100mg daily (7) Vitamin D deficiency: Code(s): E55.9 - Vitamin D deficiency, unspecified Category: Medical Plan: Continue cholecalciferol 25 mcg daily will recheck labs in 3 months (8) Lumbar degenerative disc disease: Code(s): M51.36 - Other intervertebral disc degeneration, lumbar region Category: Medical Qualifiers: Disc-related pain type: unspecified whether pain present Qualified Code(s): M51.369 - Other intervertebral disc degeneration, lumbar region without mention of lumbar back pain or lower extremity pain Plan: Reinforced weight and activity restrictions Plan Follow up in 3 months Medications: New allopurinol 100 mg PO DAILY 30 days 30 tabs 3RF
[2025-01-12 13:24] VITALS: BP 110/66; PULSE 76; TEMP 36.5; O2SAT 97; BMI 22.7
--- OUTSIDE RECORDS SUMMARY | 2025-01-12 14:58 | XMS_ITS | Clinical Summary ---
Author Organization [facility] ity Address [address] [place] [address] Care Team Providers Care Captain Airline Pilot Name Role Phone Reggie Tam DO Primary Care Provider [phone] Social History Tobacco Use Types Packs/Day Years [...] age to complete this topic Care Teams Captain Airline Pilot Relationship Specialty Start Date End Date Reggie Tam DO [facility] [place] [address] PCP - General Family Medicine 10/05/17
--- OUTSIDE RECORDS SUMMARY | 2025-01-12 14:58 | XMS_ITS | Encounter Summary ---
Author Organization [facility] Address [address] [place] [address] Phone Care Team Providers Care Corrections Cadet Name Role Phone Nikhil Knutson MD Primary Care Provider [phone] Reason for Visit * Reason Comments Med Refill Encounter Details Date Type Department Care Team (Late st Contact Info) Description 12/07/2023 Refill [facility] [address] [place] [phone] Ki Figueroa MD [address] [place] [phone] Renal disorder due to type 2 diabetes [...] (HCC) documented in this encounter Care Teams Corrections Cadet Relationship Specialty Start Date End Date Nikhil Knutson MD [address] [place] [address] PCP - General 11/03/22 documented as of this encounter
--- OUTSIDE RECORDS SUMMARY | 2025-01-12 14:58 | XMS_ITS | Encounter Summary ---
Author Organization [facility] Address [address] [facility] [address] [place] [address] Phone Care Team Providers Care Auto Inspection Specialist Name Role Phone Nikhil Knutson MD Primary Care Provider [phone] Encounter Details Date Type Department Care Team ([facility] st Contact Info) Description 10/09/2023 Office Communication [facility] [address] [facility] [address] [place] [phone] Ki Figueroa MD [address] [facility] [address] [place] [phone] Social History Tobacco Use Types Packs/Day Years [...] on filedocumented in this encounter Care Teams Auto Inspection Specialist Relationship Specialty Start Date End Date Nikhil Knutson MD [address] [place] [address] DRIVE [address] [place] [address] PCP - General 11/03/22 documented as of this encounter
--- OUTSIDE RECORDS SUMMARY | 2025-01-12 14:58 | XMS_ITS | Clinical Summary ---
Author Organization [facility] Address [address] [address] Care Team Providers Care Chief Talent Officer Name Role Phone Nikhil Knutson MD Primary Care Provider [phone] Allergies No known active allergies Medications pravastatin [...] patient's age to complete this topic Insurance [facility] MEDICARE [facility] Care Teams Chief Talent Officer Relationship Specialty Start Date End Date Nikhil Knutson MD [address] [place] [address] PCP - General 11/03/22
--- OUTSIDE RECORDS SUMMARY | 2025-01-12 14:58 | XMS_ITS | Encounter Summary ---
Author Organization [facility] Address [address] [facility] [address] [place] [address] Phone Care Team Providers Care Oyster Shucker Name Role Phone Nikhil Knutson MD Primary Care Provider [phone] Reason for Visit * Reason Comments Med Refill Encounter Details Date Type Department Care Team (Late st Contact Info) Description 02/09/2024 [facility]ill [facility] [address] [place] [phone] Ki Figueroa MD [address] [facility] [address] [place] [phone] Hypertensive disorder Social History Tobacco Use Types [...] disorder documented in this encounter Care Teams Oyster Shucker Relationship Specialty Start Date End Date Nikhil Knutson MD [address] [place], [place] [phone] PCP - General 11/03/22 documented as of this encounter
--- OUTSIDE RECORDS SUMMARY | 2025-01-12 14:58 | XMS_ITS | Encounter Summary ---
Author Organization [facility] Address [address] [facility] [address] [place] [address] Phone Care Team Providers Care Speech Coach Name Role Phone Nikhil Knutson MD Primary Care Provider [phone] Reason for Visit * Reason Comments Med Refill Encounter Details Date Type Department Care Team (Late st Contact Info) Description 02/08/2024 [facility]ill [facility] [address] [place] [phone] Ki Figueroa MD [address] [facility] [address] [place] [phone] Hypertensive disorder Social History Tobacco Use Types [...] disorder documented in this encounter Care Teams Speech Coach Relationship Specialty Start Date End Date Nikhil Knutson MD [address] [place], [place] [phone] PCP - General 11/03/22 documented as of this encounter
== END 2025-01-12 14:12 | disposition home or self-care (01) ==
PROVIDERS: PCP Internal Medicine
DX: I12.9 Hypertensive chronic kidney disease with stage 1 through stage 4 chronic kidney disease, or unspecified chronic kidney disease (principal); E11.22 Type 2 diabetes mellitus with diabetic chronic kidney disease; N18.31 Chronic kidney disease, stage 3a; N18.32 Chronic kidney disease, stage 3b; E78.00 Pure hypercholesterolemia, unspecified; Z01.818 Encounter for other preprocedural examination; M10.00 Idiopathic gout, unspecified site; E55.9 Vitamin D deficiency, unspecified; M51.369 Other intervertebral disc degeneration, lumbar region without mention of lumbar back pain or lower extremity pain

== ENCOUNTER → 2025-01-12 13:16 | Outpatient (BNVA) | payer MEDICARE, SELFPAY | PROVIDERS: PCP Internal Medicine | DX: Z01.818 Encounter for other preprocedural examination (principal); E78.00 Pure hypercholesterolemia, unspecified; I12.9 Hypertensive chronic kidney disease with stage 1 through stage 4 chronic kidney disease, or unspecified chronic kidney disease; E11.22 Type 2 diabetes mellitus with diabetic chronic kidney disease; N18.31 Chronic kidney disease, stage 3a; M10.00 Idiopathic gout, unspecified site; E55.9 Vitamin D deficiency, unspecified; M51.369 Other intervertebral disc degeneration, lumbar region without mention of lumbar back pain or lower extremity pain | CPT/HCPCS: 99212 ==

== ENCOUNTER 2025-01-19 08:47 | Day surgery (SDC) | payer MEDICARE, SELFPAY ==
[2024-12-09 13:54] VITALS: BMI 23.1
--- NOTE | 2025-01-15 14:43 | HO.ANESPROP2 ---
Documented by User: Thu Carreon NP 01/15/25 14:44 HPI - Anesthesia Eval Consult details Narrative: 69yo M for Left Cataract Extraction IOL Insertion Right eye 12/15/24: Midaz 2 Anesthesia Pre-Procedure Meds Is the patient on any of the following meds?: SGLT2 Inhib PMFSH Active Problems Active Problems: All Active Problems Preoperative clearance (Acute) Hypertension (Acute) Diabetic nephropathy (Acute) Acute kidney injury (Acute) Dysuria (Acute) Chronic kidney disease, stage 2 (mild) (Acute) Cervical disc herniation (Acute) Chronic kidney disease (CKD), stage III (moderate) (Acute) Vitamin D deficiency (Acute) Gout (Acute) Lumbar degenerative disc disease (Acute) Benign essential hypertension (Acute) Pure hypercholesterolemia (Acute) Proteinuria, unspecified (Acute) Type 2 diabetes mellitus with diabetic chronic kidney disease (Acute) Past Medical History Medical History Bilateral cataracts Cervical disc herniation Chronic kidney disease (CKD), stage III (moderate) Vitamin D deficiency Gout Lumbar degenerative disc disease Benign essential hypertension Pure hypercholesterolemia Proteinuria, unspecified Type 2 diabetes mellitus with diabetic chronic kidney disease Family History Family History Father No problems noted. Mother No problems noted. Brother Diabetes Brother Heart problem Surgical History Surgical History (Updated 01/15/25 @ 11:19 by Aubree Dacosta RN) History of right cataract surgery (12/15/24) History of extraction of renal calculus History of cervical discectomy History of laminectomy History of Problems with Anesthesia: No Social History Social History Household Members: Spouse Housing: House Are you a primary career technical counselor to a significant other at home: No Do you presently have visiting nurse or other home services: No Alcohol intake: former Patient Tobacco Use Status: Former Tobacco user e-Cigarette/Vaping Use: Never Used Second Hand Smoke Exposure: Yes Advance Directives: No Advance Directives Information Provided: Yes service: No Current occupational status: retired Cognitive needs: No Hearing needs: No Vision needs: No Meds Allergies Allergy/AdvReac Type Severity Reaction Status Date / Time amlodipine AdvReac Intermediate edema Verified 01/12/25 13:43 Home Medications ?Medication ?Instructions ?Recorded ?Confirmed ?Last Taken ?Type cholecalciferol (vitamin D3) 25 25 mcg PO DAILY 10/11/20 01/12/25 Unknown History mcg (1,000 unit) capsule omega-3 fatty acids 1,000 mg 1,000 mg PO DAILY 01/13/21 01/12/25 Unknown History capsule (Fish Oil Concentrate) Exam Height,Weight and Vital Signs: Height 5 ft 6 in Weight 65.034 kg Assessment and Plan Assessment Anesthesia Assessment: Chart Reviewed Final Anesthetic Review History of Problems with Anesthesia: No Documented by User: Soha Calhoun MD 01/19/25 10:09 [facility] Past Medical History Medical History Bilateral cataracts Cervical disc herniation Chronic kidney disease (CKD), stage III (moderate) Vitamin D deficiency Gout Lumbar degenerative disc disease Benign essential hypertension Pure hypercholesterolemia Proteinuria, unspecified Type 2 diabetes mellitus with diabetic chronic kidney disease Family History Family History Father No problems noted. Mother No problems noted. Brother Diabetes Brother Heart problem Family history of problems with anesthesia: No Surgical History Surgical History (Updated 01/15/25 @ 11:19 by Aubree Dacosta RN) History of right cataract surgery (12/15/24) History of extraction of renal calculus History of cervical discectomy History of laminectomy Social History Social History Household Members: Spouse Housing: House Are you a primary career technical counselor to a significant other at home: No Do you presently have visiting nurse or other home services: No Alcohol intake: former Patient Tobacco Use Status: Former Tobacco user e-Cigarette/Vaping Use: Never Used Second Hand Smoke Exposure: Yes Advance Directives: No Advance Directives Information Provided: Yes service: No Current occupational status: retired Cognitive needs: No Hearing needs: No Vision needs: No Meds Allergies Allergy/AdvReac Type Severity Reaction Status Date / Time amlodipine AdvReac Intermediate edema Verified 01/12/25 13:43 Home Medications ?Medication ?Instructions ?Recorded ?Confirmed ?Last Taken ?Type cholecalciferol (vitamin D3) 25 25 mcg PO DAILY 10/11/20 01/12/25 Unknown History mcg (1,000 unit) capsule omega-3 fatty acids 1,000 mg 1,000 mg PO DAILY 01/13/21 01/12/25 Unknown History capsule (Fish Oil Concentrate) Exam Airway Mallampati Class: II (implants) TM Dist: >3cm Neck ROM: Full Partial: Upper Heart: rrr Lungs: cta Assessment and Plan Assessment Anesthesia Assessment: Anesthesia Plan Discussed Final Anesthetic Review Family History of Problems with Anesthesia: No NPO: Yes ASA Class: III Final Preanesthetic Review: No Changes in Pt Med Stat, Meds/Allgs Chart Reviewed and Consent Obtained/Reviewed Patient Risk: Intermediate Procedure Risk: Low Anesthetic Plan Anesthetic Plan: MAC: Disposition: Standard PACU
[2025-01-19] MEDS: Lactated Ringers 500 ML 50 ML IV (09:56)
[2025-01-19] MEDS: Phenylephrine HCL 2.5% Oph SoL 2 ML BOTTLE 1 DROP EYE-LEFT ×3 (09:56→10:06)
[2025-01-19] MEDS: Tetracaine HCl/PF 0.5% Oph Sol 4 ML DROPS 1 DROP EYE-LEFT (09:56)
[2025-01-19] MEDS: Tropicamide 1 % Ophth Sol 3 ML BTL 1 DROP EYE-LEFT ×3 (09:57→10:07)
[2025-01-19] MEDS: Cyclopentolate 1 % Ophth Sol 2 ML DRPBTL 1 DROP EYE-LEFT ×3 (09:57→10:07)
[2025-01-19] MEDS: Ketorolac Tromethamine 0.5% Op 5 ML DROPS 1 DROP EYE-LEFT ×3 (09:57→10:07)
[2025-01-19 10:10] VITALS: BP 128/66; PULSE 69; RESP 18; TEMP 36.7; O2SAT 98
[2025-01-19 10:33] LABS: Glucose, Whole Blood 183 mg/dL (60-115)
--- NOTE | 2025-01-19 10:43 | MHC.SHP ---
Pre-Procedural Eval Section A - 24 Hr Update-Section A only Date of Service: 01/19/25 The patient is an INPATIENT: No Changes since office visit: No Cold of Flu in the past 2 weeks, No New Medical Problems, No Changes in Medication and No Patient answered all questions The patient has been examined within 24 hours of the surgical procedure. The History & Physical has been completed within 30 days and I have reviewed it.: Yes Section B - Complete if H&P > 30 days Chief Complaint: Age-related nuclear cataract, left eye Allergies: Allergies Allergy/AdvReac Type Severity Reaction Status Date / Time amlodipine AdvReac Intermediate edema Verified 01/19/25 10:11 Plan Diagnosis/Plan: Unchanged I have reviewed the history and physical and performed a pertinent physical examination on my patient. No changes have occurred unless specified. Time Spent With Patient Time: Total time managing care of this patient today ____ minutes.
--- NOTE | 2025-01-19 10:43 | HO.PNOPHT ---
Ophthalmology Procedure Procedure Date of Service: 01/19/25 Ophthalmology Viscoelastic: Healon Duet Dual Pack Pro Ophthalmology Lenses: IOL Acrysof MP - [id number] (19.5) Procedure Notes: PREOPERATIVE DIAGNOSIS: Decreased visual acuity left eye secondary to cataract POSTOPERATIVE DIAGNOSIS: Same PROCEDURE: Left cataract extraction with intraocular lens insertion SURGEON: Maximino Alvarenga M.D. ANESTHESIA: Topical/MAC ESTIMATED BLOOD LOSS: None COMPLICATIONS: None After obtaining informed consent, the patient was brought to the operation room suite and placed in the supine position. After adequate sedation per anesthesia, topical drops of Tetracaine were given to the left eye. The eye was then prepped and draped in the usual sterile fashion. The operating room microscope was then positioned over the operative eye and a lid speculum placed. A paracentesis was created. Viscoelastic was then instilled into the anterior chamber. A three plane incision was then created temporally, utilizing a 2.85 mm keratome. Capsulotomy forceps were then utilized to create a circular tear capsulotomy. Hydrodissection and hydrodelineation were carried out until adequate mobilization of the nucleus occurred. Phacoemulsification was then utilized to remove the dense central nucleus followed by removal of the cortical material utilizing the automated aspiration irrigation unit. Viscoat elastic was instilled into the posterior capsular bag followed by placement of a posterior chamber intraocular lens without difficulty. The residual Viscoat elastic was then removed utilizing the automated IA machine. The wound was check and found to be watertight. The patient tolerated the procedure well and the lid speculum was removed. Intracameral injection of Vigamox 0.1 mL followed by a subtenon injection of Kenalog-40 0.2 mL were administered. The patient will be seen in the a.m.
[2025-01-19 11:04] VITALS: BP 122/61; PULSE 68; RESP 16; TEMP 36.9; O2SAT 98
[2025-01-19 11:19] VITALS: BP 123/65; PULSE 68; RESP 16; TEMP 36.9; O2SAT 96
== END 2025-01-19 11:19 | disposition home or self-care (01) ==
PROVIDERS: PCP Internal Medicine; Visit Provider Ophthalmology
PROC: (CPT 66985; principal; 2025-01-19 11:30)
DX: H25.12 Age-related nuclear cataract, left eye (principal); H52.4 Presbyopia; H40.013 Open angle with borderline findings, low risk, bilateral; H40.033 Anatomical narrow angle, bilateral; H11.153 Pinguecula, bilateral; H35.033 Hypertensive retinopathy, bilateral; E11.22 Type 2 diabetes mellitus with diabetic chronic kidney disease; I12.9 Hypertensive chronic kidney disease with stage 1 through stage 4 chronic kidney disease, or unspecified chronic kidney disease; N18.30 Chronic kidney disease, stage 3 unspecified; E78.00 Pure hypercholesterolemia, unspecified; M10.9 Gout, unspecified; Z79.84 Long term (current) use of oral hypoglycemic drugs; Z79.899 Other long term (current) drug therapy; Z88.8 Allergy status to other drugs, medicaments and biological substances; Z87.891 Personal history of nicotine dependence
CPT/HCPCS: 66984; 82947; J2250; J3301; V2630

== ENCOUNTER 2025-02-26 06:08 | Outpatient (REF) | payer MEDICARE, SELFPAY ==
--- OUTSIDE RECORDS SUMMARY | 2025-02-26 06:10 | XMS_ITS | Clinical Summary ---
Author Organization [facility] Facility Address [address] [address] Care Team Providers Care Dynamiter Name Role Phone Nikhil Knutson MD Primary Care Provider [phone]- [phone] Allergies No known active allergies Medications pravastatin [...] Due Date Last Done Comments Pneumococcal Vaccine: 50+ Ye ars (1 of 2 - PCV) 1974 Colorectal Cancer Screening: Annual FOBT 2004 Colorectal Cancer Screening: Colonoscopy 2004 Colorectal Cancer Screening: Sigmoidoscopy 2004 Diabetes: Hemoglobin A1C 12/06/2020 Diabetes: Ophthalmology Exam 12/06/2020 Diabetes: Pedal Pulse Checked 12/06/2020 Diabetes: Sensory Foot Exam 12/06/2020 Diabetes: Visual Foot Exam 12/06/2020 Influenza Vaccine (Season Ended) 2025 Hepatitis B Vaccine Aged Out No longe r eligible based on patient's age to complete this topic Insurance [facility] Medicare [facility] Care Teams Dynamiter Relationship Specialty Start Date End Date Nikhil Knutson MD [address] [place] [address] PCP - General 11/03/22
--- OUTSIDE RECORDS SUMMARY | 2025-02-26 06:10 | XMS_ITS | Encounter Summary ---
Author Organization [facility] Address [address] [place] [address] Phone Care Team Providers Care Vacuum Worker Name Role Phone Nikhil Knutson MD Primary Care Provider [phone]- [phone] Reason for Visit * Reason Comments Med Refill Encounter Details Date Type Department Care Team (Late st Contact Info) Description 12/07/2023 Refill [facility] [address] [place] [phone] Ki Figueroa MD [address] [place] [phone] Renal disorder due to type 2 diabetes [...] (HCC) documented in this encounter Care Teams Vacuum Worker Relationship Specialty Start Date End Date Nikhil Knutson MD [address] [place] [address] PCP - General 11/03/22 documented as of this encounter
--- OUTSIDE RECORDS SUMMARY | 2025-02-26 06:10 | XMS_ITS | Encounter Summary ---
Author Organization [facility] Address [address] [place] [address] Phone Care Team Providers Care Expediter Service Order Name Role Phone Nikhil Knutson MD Primary Care Provider +1- [phone] Reason for Visit * Reason Comments Med Refill Encounter Details Date Type Department Care Team (Late st Contact Info) Description 02/08/2024 [facility]ill [facility] [address] [place] [phone] Ki Figueroa MD [address] [facility] [address] [place] [phone] Hypertensive disorder Social History Tobacco Use Types [...] disorder documented in this encounter Care Teams Expediter Service Order Relationship Specialty Start Date End Date Nikhil Knutson MD [address] [place], [place] [phone] PCP - General 11/03/22 documented as of this encounter
--- OUTSIDE RECORDS SUMMARY | 2025-02-26 06:10 | XMS_ITS | Encounter Summary ---
Author Organization [facility] Address [address] [facility] [address] [place] [address] Phone Care Team Providers Care Foundry Worker General Name Role Phone Nikhil Knutson MD Primary Care Provider +1- [phone] Reason for Visit * Reason Comments Med Refill Encounter Details Date Type Department Care Team (Late st Contact Info) Description 02/09/2024 Refill [facility] [address] [place] [phone] Ki Figueroa MD [address] [facility] [address] [place] [phone] Hypertensive disorder Social History Tobacco Use Types [...] disorder documented in this encounter Care Teams Foundry Worker General Relationship Specialty Start Date End Date Nikhil Knutson MD [address] [place], [place] [id number] PCP - General 11/03/22 documented as of this encounter
--- OUTSIDE RECORDS SUMMARY | 2025-02-26 06:10 | XMS_ITS | Clinical Summary ---
Author Organization [facility] ity Address [address] [place] [address] Care Team Providers Care Cigar Making Machine Supervisor Name Role Phone Reggie Tam DO Primary Care Provider [phone] Social History Tobacco Use Types Packs/Day Years [...] - 2023-2 5 season) 2024 Influenza Vaccine (Season Ended) 2025 RSV Immunization Adult Patie nts (1 - 1-dose 75+ series) 2030 HIB [...] age to complete this topic Meningococcal B Vaccine Aged Out No l onger eligible based on patient's age to complete this topic RSV Immunization Patients Un jp 20 months Aged Out No longer eligible b ased on patient's age to complete this topic Varicella Vaccines Aged Out No longer eligible based on patient's age to complete this topic Care Teams Cigar Making Machine Supervisor Relationship Specialty Start Date End Date Reggie Tam DO [address] [place] [address] PCP - General Family Medicine 10/05/17
[2025-02-26 06:26] LABS: MANUAL DIFF FLAG NO
[2025-02-26 07:20] LABS: Appearance Urine Clear; Color Urine Yellow; Glucose Urine UA >=1000 mg/dL (Negative); Leukocyte Esterase Urine Negative (Negative); Nitrite Urine Negative (Negative); PH 5.5 (5.0-9.0); Specific Gravity - Urine 1.025 (1.005-1.025); UMIC TRIGGER UACC YES; Urine Blood Negative (Negative); Urine Ketones Negative (Negative); Urine Protein 30 (1+) mg/dL (Neg-Trace)
[2025-02-26 07:23] LABS: Bacteria Urine None Seen (None Seen); Hyaline Casts Urine 0-2 /LPF (0-2); RBC Urine 0-2 /HPF (0-2); Squamous Epithelial Cell Urine 0-2 /HPF (0-2); WBC Urine 0-5 /HPF (0-5)
[2025-02-26 07:25] LABS: Estimated Average Glucose 166 mg/dL; Hemoglobin A1C 228.5243 umol/L; Hemoglobin A1c % 7.4 % (<6.0); Total Hemoglobin (HGBA1C) 3997.6426 umol/L
[2025-02-26 07:26] LABS: Basophils Percent Auto 0.6 % (0-2); Eosinophils Absolute Auto 0.1 X10*3/uL (0.0-0.4); Eosinophils Percent Auto 1.4 % (0-4); Hematocrit 48.4 % (42.0-52.0); Hemoglobin 15.7 g/dl (14.0-18.0); Imm Gran Abs Auto 0.02 X10*3/uL (0.00-0.03); Imm Gran Pct Auto 0.4 % (0.0-0.4); Lymphocytes Percent Auto 20.1 % (20-40); Mean Corpuscular HGB Conc 32.4 g/dl (31.0-36.0); Mean Corpuscular Hemoglobin 27.4 pg (27.0-33.0); Mean Corpuscular Volume 84.5 fL (80.0-98.0); Mean Platelet Volume 9.6 fL (9.4-12.4); Monocytes Absolute Auto 0.4 X10*3/uL (0.1-1.2); Neutrophils Absolute Auto 3.3 x10*3/uL (2.0-8.3); Neutrophils Percent Auto 68.5 % (45-73); Platelet Count 175 X10*3/uL (160-400); Red Blood Count 5.73 X10*6/uL (4.60-5.80); White Blood Count 4.9 X10*3/uL (4.8-10.8)
[2025-02-26 07:46] LABS: Creatinine Urine 79.47 mg/dL; Microalbum/Creatinine Ratio Ur 339.7 ug/mg cr (<30)
[2025-02-26 07:51] LABS: Alanine Aminotransferase 36 U/L (0-40); Albumin Level 4.1 g/dL (3.5-5.0); Alkaline Phosphatase 51 U/L (39-117); Anion Gap 11 (12-20); Aspartate Amino Transferase 29 U/L (5-37); Bilirubin Total 0.8 mg/dL (0.0-1.0); Blood Urea Nitrogen 28 mg/dL (9-16); Calcium 9.6 mg/dL (8.4-10.2); Carbon Dioxide 26 mmol/L (22-29); Chloride 106 mmol/L (96-108); Cholesterol 161 mg/dL (<200); Estimated Glomerular Filt Rate 45; Glucose Fasting 180 mg/dL (60-99); HDL Cholesterol 54 mg/dL (>40); LDL Cholesterol Calculated 80 mg/dL (<100); Potassium 4.3 mmol/L (3.3-5.1); Sodium 139 mmol/L (135-145); Total Protein 6.7 g/dL (6.5-8.0); Triglycerides 139 mg/dL (<150); Uric Acid 5.8 mg/dL (3.4-7.0)
[2025-02-26 08:09] LABS: TSH reflex Free T4 2.88 uIU/mL (0.32-4.0); Vitamin D 25-OH Total 37.2 ng/mL (>30)
== END 2025-02-26 06:09 | disposition home or self-care (01) ==
LOC: HO.LAB 06:08
PROVIDERS: PCP Internal Medicine; Visit Provider Internal Medicine
DX: E11.9 Type 2 diabetes mellitus without complications (principal); E55.9 Vitamin D deficiency, unspecified; E78.00 Pure hypercholesterolemia, unspecified; M10.9 Gout, unspecified; D64.9 Anemia, unspecified
CPT/HCPCS: 36415; 80053; 80061; 81001; 82043; 82306; 82570; 83036; 84443; 84550; 85025

== ENCOUNTER 2025-03-06 09:23 | Outpatient (AMB) | payer MEDICARE, SELFPAY ==
[2025-03-06 09:27] VITALS: BP 110/72; PULSE 75; O2SAT 96; BMI 22.4
--- NOTE | 2025-03-06 09:27 | MHC.PC.OV ---
Vital Signs 03/06/25 09:27 Height 5 ft 6 in Weight 139 lb BMI 22.4 BP 110/72 Blood Pressure Location Lt brachial Position Sitting Pulse 75 Pulse Source Pulse Oximeter Pulse Oximetry (%) 96 Oxygen Delivery Method Room Air Intake Visit Reasons: dm/htn/ckd - see comments Building Code Inspector Required: No Accompanied by: Self / Same As Patient Allergies amlodipine Adverse Reaction (Intermediate, Verified 03/06/25 09:50) edema Medication List - Last Reconciled 03/06/25 by Nikhil Knutson MD allopurinol 100 mg PO DAILY 30 days blood sugar diagnostic 1 strip miscellaneous DAILY 30 days cholecalciferol (vitamin D3) 25 mcg PO DAILY empagliflozin (Jardiance) 25 mg PO QAM 90 days glipizide ER 5 mg PO DAILY hydralazine 50 mg PO TID 90 days labetalol 200 mg PO BID 90 days lisinopril 20 mg PO DAILY 90 days metformin ER 500 mg PO BEDTIME omega-3 fatty acids (Fish Oil Concentrate) 1,000 mg PO DAILY pravastatin 40 mg PO DAILY Tobacco use date assessed: 03/06/25 Fall risk assessment: No Falls in past year Last assessed Fall Risk: 03/06/25 Dental Screening Dental Screen Date: 03/06/25 Did you have a dental visit in the last 12 months?: Yes Did you have a dental problem in the last 6 months where you did not have access to dental care?: No Was dental information given to patient?: Patient has dentist HPI dm/htn/ckd - see comments HPI Details Patient comes in today for his follow up visit for his DM, CKD, HTN, hyperlipidemia and gout States that he has been noticing higher blood sugar readings than normal when he checks his blood sugar in the morning for the past few weeks now States that he has not changed his diet or done anything different lately and he has also been on the same medications for a while now without any changes so he does not know what is causing his blood sugar to run higher now States that he feels okay otherwise He denies any headaches or dizziness Denies any chest pains, no increased SOB No nausea/vomiting, no abdominal pain No change in bowel habits noted He had his follow up labs done last week - to discuss his results [facility] Medical History Bilateral cataracts Cervical disc herniation Chronic kidney disease (CKD), stage III (moderate) Vitamin D deficiency Gout Lumbar degenerative disc disease Benign essential hypertension Pure hypercholesterolemia Proteinuria, unspecified Type 2 diabetes mellitus with diabetic chronic kidney disease Surgical History History of right cataract surgery (12/15/24) History of extraction of renal calculus History of cervical discectomy History of laminectomy Family History Father No problems noted. Mother No problems noted. Brother Diabetes Brother Heart problem Social History Household Members: Spouse Housing: House Are you a primary career development manager to a significant other at home: No Do you presently have visiting nurse or other home services: No Alcohol intake: former Patient Tobacco Use Status: Former Tobacco user e-Cigarette/Vaping Use: Never Used Second Hand Smoke Exposure: Yes service: No Current occupational status: retired Cognitive needs: No Hearing needs: No Vision needs: No Questionnaire PHQ-9 Over the last 2 weeks, how often have you been bothered by any of the following problems? 1. Little interest or pleasure in doing things: several days 2. Feeling down, depressed, or hopeless: not at all 3. Trouble falling or staying asleep, or sleeping too much: not at all 4. Feeling tired or having little energy: several days 5. Poor appetite or overeating: several days 6. Feeling bad about yourself - or that you are a failure or have let yourself or your family down: not at all 7. Trouble concentrating on things, such as reading the newspaper or watching television: not at all 8. Moving or speaking so slowly that other people could have noticed. Or the opposite - being so fidgety or restless that you have been moving around a lot more than usual: not at all 9. Thoughts that you would be better off or of hurting yourself in some way: not at all Total score: 3 Depression Screening Interpretation: Negative Depression Screening Done: Yes 99227 - PHQ-9 Billing: Yes Source: Developed by Drs. Tray Benoit, Jarett Ortizke and colleagues, with an educational karlos from [employer]. Thrive Questionnaire Date Thrive assessed: 03/06/25 I am a: Patient What is your living situation today?: I have a steady place to live Within the past 12 months, did the food you bought not last and you didn't have the money to get more?: I choose not to answer this question Within the past 12 months, did you worry whether your food would run out before you got money to buy more?: I choose not to answer this question Do you have trouble paying for medicines?: No Do you have trouble getting transportation to medical appointments?: No Do you have trouble paying your heating and electricity bill?: No Do you have trouble taking care of your child, family member or friend?: I choose not to answer this question Do you have trouble with day-to-day activities such as bathing, preparing meals, shopping, managing finances, etc.?: No Are you currently unemployed and looking for a job?: No Are you interested in more education?: No Please select the resources that you would like help with: None Currently or been in a relationship where the following occur: No concerns reported THRIVE Score: 0 AUDIT C Alcohol Use Questionnaire (AUDIT-C) 1. How often do you have a drink containing alcohol?: Never 3. How often do you have six or more drinks on one occasion?: Never Total Score: 0 Score Reviewed/Action Taken: Yes BP-7 AMB Questionnaire PB-7 Date PB - 7 assessed: 03/06/25 Feeling nervous, anxious, or on edge: 0 = Not at all Not being able to stop or control worryin = Not at all Worrying too much about different things: 1 = Several days Trouble relaxin = Not at all Being so restless that it is hard to sit still: 0 = Not at all Becoming easily annoyed or irritable: 0 = Not at all Feeling afraid as if something awful might happen: 0 = Not at all Total PB-7 score (0-4 normal; 5-9 mild; 10-14 moderate; 15-21 severe): 1 Source: Developed by Drs. Tray Benoit, Jarett Ortiz and colleagues, with an educational karlos from [employer]. Review of Systems Const Denies chills, Denies fatigue, Denies fever(s) and Denies headache(s) ENT Denies dysphagia, Denies dizziness, Denies otalgia, Denies headache(s), Reports neck pain (chronic but is mostly manageable), Denies odynophagia and Denies sore throat Card Denies chest pain, Denies palpitations and Denies dyspnea Resp Denies chest congestion, Denies cough and Denies dyspnea GI Denies abdominal pain, Denies constipation, Denies dysphagia, Denies heartburn, Denies diarrhea, Denies nausea, Denies odynophagia and Denies vomiting Denies difficulty urinating, Denies dysuria, Denies nocturia and Denies urinary frequency Musc Details: (+) recurrent pain in both feet Reports back pain (over the lower back - chronic) and Reports neck pain (chronic but is mostly manageable) Skin/Breast Denies rash Neuro Denies dizziness and Denies headache(s) Endo Denies fatigue and Denies palpitations Physical exam (Primary Care) Vital Signs: Last Vital Signs Pulse 75 03/06/25 09:27 BP 110/72 03/06/25 09:27 Pulse Ox 96 03/06/25 09:27 Oxygen Delivery Method Room Air 03/06/25 09:27 BMI result Body Mass Index 22.4 Tobacco/Smoking Status: Tobacco use Status Tobacco use date assessed 03/06/25 03/06/25 09:32 Patient Tobacco Use Status Former Tobacco user 03/06/25 09:32 e-Cigarette/Vaping Use Never Used 03/06/25 09:32 PHQ-9: PHQ-9 Score PHQ-9: Total score 3 03/06/25 09:32 Depression Screening Interpretation: Negative Thrive Assessment: Date of Thrive Assessment Date Thrive assessed 03/06/25 03/06/25 09:32 Currently or been in a relationship where the following occur: No concerns reported Const General: no acute distress and alert HENMT Ears: TM's normal bilaterally and EAC's normal Throat: Yes posterior oropharynx normal and Yes tonsils normal (no TP congestion noted) Neck Neck: No lymphadenopathy and Yes tender Thyroid: Thyroid normal Resp Auscultation: clear to auscultation bilaterally, no rales and no wheezes Cardio Rate: regular rate Rhythm: regular rhythm Heart sounds: no murmurs GI Palpation (GI): Soft to palpation and nontender Auscultation: normal bowel sounds General: Yes no CVA tenderness Back/Spine/Pelvis Back: no CVA tenderness Cervical Spine: Cervical spine tenderness Thoracic/Lumbar Spine: lumbar spinal tenderness Skin Rashes: no rashes Neuro Motor exam (neuro): Abnormal motor strength present left lower extremity other 3 / 5 Extrem General: Yes no clubbing, cyanosis or edema Results Reviewed Results Reviewed: Laboratory Tests 02/26/25 02/26/25 02/26/25 06:11 06:20 06:24 WBC 4.9 Hgb 15.7 Hct 48.4 Plt Count 175 Sodium 139 Potassium 4.3 Creatinine 1.53 H Estimated GFR 45 Fasting Glucose 180 H Hemoglobin A1c % 7.4 H Uric Acid 5.8 Calcium 9.6 AST 29 ALT 36 Triglycerides 139 Cholesterol 161 LDL Cholesterol, Calc 80 HDL Cholesterol 54 25-OH Vitamin D Total 37.2 TSH 2.88 Ur Specific [place] 1.025 Urine Protein 30 (1+) H Urine Glucose (UA) >=1000 H Urine Blood Negative Urine Nitrite Negative Ur Leukocyte Esterase Negative Microalb/Creat Ratio 339.7 H Coding Level of Care Code Est Pt Level 4 (79325) Complex EM visit Add On G2211 Diagnoses Type 2 diabetes mellitus with stage 3a chronic kidney disease, without long-term current use of insulin E11.22; N18.31 Diabetes mellitus intermediate insulin use: without intermediate use Chronic kidney disease stage: stage 3 (moderate) Chronic kidney disease stage 3 subtype: stage 3a (GFR 45-59) Stage 3b chronic kidney disease N18.32 Chronic kidney disease stage 3 subtype: stage 3b (GFR 30-44) Proteinuria, unspecified type R80.9 Proteinuria type: unspecified Pure hypercholesterolemia E78.00 Benign essential hypertension I10 Degeneration of intervertebral disc of lumbar region, unspecified whether pain present M51.369 Disc-related pain type: unspecified whether pain present Cervical disc herniation M50.20 Vitamin D deficiency E55.9 Idiopathic gout, unspecified chronicity, unspecified site M10.00 Gout site: unspecified site Gout etiology: idiopathic Chronicity: unspecified Additional Codes PHQ-9 - 56519 - PHQ-9 Billing: Yes ([id number]) Assessment & Plan Assessment & Plan (1) Type 2 diabetes mellitus with diabetic chronic kidney disease: Code(s): E11.22 - Type 2 diabetes mellitus with diabetic chronic kidney disease Category: Medical Qualifiers: Diabetes mellitus extermination supervisor insulin use: without extermination supervisor use Chronic kidney disease stage: stage 3 (moderate) Chronic kidney disease stage 3 subtype: stage 3a (GFR 45-59) Qualified Code(s): E11.22 - Type 2 diabetes mellitus with diabetic chronic kidney disease; N18.31 - Chronic kidney disease, stage 3a Plan: Patient's HgbA1c went up slightly to 7.4% on his labs done last week (was at 7.0% a few months ago) - goal is at least <7.0% Reinforced diabetic diet Continue Metformin ER 500 mg QD, Glipizide ER 5 mg QD and Jardiance 25 mg QD Will start him additionally on Lantus Solostar 10 units Q HS He is instructed to continue monitoring his blood sugar regularly (2) Chronic kidney disease (CKD), stage III (moderate): Code(s): N18.30 - Chronic kidney disease, stage 3 unspecified Category: Medical Qualifiers: Chronic kidney disease stage 3 subtype: stage 3b (GFR 30-44) Qualified Code(s): N18.32 - Chronic kidney disease, stage 3b Plan: His serum creatinine and GFR have remained stable on his recent labs We will continue to monitor his renal function closely Follow up with Dr. Vanegas as scheduled for nephrology follow up (3) Proteinuria, unspecified: Code(s): R80.9 - Proteinuria, unspecified Category: Medical Qualifiers: Proteinuria type: unspecified Qualified Code(s): R80.9 - Proteinuria, unspecified Plan: Stable Will continue to monitor his renal function regularly (4) Pure hypercholesterolemia: Code(s): E78.00 - Pure hypercholesterolemia, unspecified Category: Medical Plan: Results of his labs done last week reviewed and discussed with patient Reinforced low cholesterol diet Continue Pravastatin 40 mg QD Will recheck his labs and fasting lipids in 3 months for follow up (5) Benign essential hypertension: Code(s): I10 - Essential (primary) hypertension Category: Medical Plan: Reinforced low sodium diet - goal is systolic BP of at least 130 mm or less Continue Lisinopril 20 mg QD, Hydralazine 50 mg TID and Labetalol 200 mg BID Patient is reminded to continue monitoring his blood pressure regularly (6) Lumbar degenerative disc disease: Code(s): M51.36 - Other intervertebral disc degeneration, lumbar region Category: Medical Qualifiers: Disc-related pain type: unspecified whether pain present Qualified Code(s): M51.369 - Other intervertebral disc degeneration, lumbar region without mention of lumbar back pain or lower extremity pain Plan: Reinforced activity and weight-lifting restrictions Follow up with [facility] as scheduled - states that he gets back injections when needed, which provides him with (+) significant relief of his low back pain (7) Cervical disc herniation: Comment: C6-C7 - S/P discectomy Code(s): M50.20 - Other cervical disc displacement, unspecified cervical region Category: Medical Plan: States that his neck pain has been mostly manageable and he does not need anything else for his neck at this time (8) Vitamin D deficiency: Code(s): E55.9 - Vitamin D deficiency, unspecified Category: Medical Plan: Continue Vitamin D3 1000 units QD (9) Gout: Code(s): M10.9 - Gout, unspecified Category: Medical Qualifiers: Gout site: unspecified site Gout etiology: idiopathic Chronicity: unspecified Qualified Code(s): M10.00 - Idiopathic gout, unspecified site Plan: Reinforced low purine diet Serum uric acid has remained normal on his recent labs Continue Allopurinol 100 mg QD Plan Follow up in 3 months Orders: Orders Hemoglobin A1c 3 Months E11.9 - Type 2 diabetes mellitus without complications Uric Acid 3 Months M10.9 - Gout, unspecified TSH reflex Free T4 3 Months E78.00 - Pure hypercholesterolemia, unspecified Complete Blood Count Auto Diff 3 Months D64.9 - Anemia, unspecified Comprehensive [place]. Panel Fast 3 Months E78.00 - Pure hypercholesterolemia, unspecified Lipid Panel 3 Months E78.00 - Pure hypercholesterolemia, unspecified Microalbumin, Random (w Creat) 3 Months E11.9 - Type 2 diabetes mellitus without complications UA CC w/rflx Micro + Cult 3 Months R30.0 - Dysuria Vitamin B12 and Folate 3 Months E53.8 - Deficiency of other specified B group vitamins Vitamin D 25-OH Total 3 Months E55.9 - Vitamin D deficiency, unspecified Medications: New pen needle, diabetic As directed once a day 100 ea 5RF E11.9 - Type 2 diabetes mellitus without complications Lantus Solostar U-100 Insulin (insulin glargine) 10 units (0.1 mL) subcut QPM 30 days 3 mL 3RF NS
--- OUTSIDE RECORDS SUMMARY | 2025-03-06 09:59 | XMS_ITS | Clinical Summary ---
Author Organization [facility] Facility Address [address] [address] Care Team Providers Care Linseed Oil Order Filler Name Role Phone Nikhil Knutson MD Primary Care Provider +1- [phone] Allergies No known active allergies Medications pravastatin [...] patient's age to complete this topic Insurance [facility] Medicare [facility] Care Teams Linseed Oil Order Filler Relationship Specialty Start Date End Date Nikhil Knutson MD [address] [place] [address] PCP - General 11/03/22
--- OUTSIDE RECORDS SUMMARY | 2025-03-06 09:59 | XMS_ITS | Encounter Summary ---
Author Organization [facility] Address [address] [facility] [address] [place] [address] Phone Care Team Providers Care Line Prep Cook Name Role Phone Nikhil Knutson MD Primary Care Provider +1- [phone] Reason for Visit * Reason Comments Med Refill Encounter Details Date Type Department Care Team (Late st Contact Info) Description 02/08/2024 [facility]ill [facility] [address] [place] [phone] Ki Figueroa MD [address] [facility] [address] [place] [phone] Hypertensive disorder Social History Tobacco Use Types [...] disorder documented in this encounter Care Teams Line Prep Cook Relationship Specialty Start Date End Date Nikhil Knutson MD [address] [place], [place] [phone] PCP - General 11/03/22 documented as of this encounter
--- OUTSIDE RECORDS SUMMARY | 2025-03-06 09:59 | XMS_ITS | Encounter Summary ---
Author Organization [facility] Address [address] [facility] [address] [place] [address] Phone Care Team Providers Care Line Repairer Tower Name Role Phone Nikhil Knutson MD Primary Care Provider +1- [phone] Reason for Visit * Reason Comments Med Refill Encounter Details Date Type Department Care Team (Late st Contact Info) Description 02/09/2024 [facility]ill [facility] [address] [place] [phone] Ki Figueroa MD [address] [facility] [address] [place] [phone] Hypertensive disorder Social History Tobacco Use Types [...] documented in this encounter Care Teams Line Repairer Tower Relationship Specialty Start Date End Date Nikhil Knutson MD [address] [facility] [address] [place], [place] [phone] PCP - General 11/03/22 documented as of this encounter
--- OUTSIDE RECORDS SUMMARY | 2025-03-06 09:59 | XMS_ITS | Encounter Summary ---
Author Organization [facility] Address [address] [place] [address] Phone Care Team Providers Care Judge Name Role Phone Nikhil Knutson MD Primary Care Provider [phone]- [phone] Reason for Visit * Reason Comments Med Refill Encounter Details Date Type Department Care Team (Late st Contact Info) Description 12/07/2023 Refill [facility] [address] [place] [phone] Ki Figueroa MD [address] [place] [phone] Renal disorder due to type 2 diabetes [...] (HCC) documented in this encounter Care Teams Judge Relationship Specialty Start Date End Date Nikhil Knutson MD [address] [facility] [address] [place] [address] PCP - General 11/03/22 documented as of this encounter
--- OUTSIDE RECORDS SUMMARY | 2025-03-06 09:59 | XMS_ITS | Clinical Summary ---
Author Organization [facility] ity Address [address] [place] [address] Care Team Providers Care Retail Account Executive Name Role Phone Reggie Tam DO Primary Care Provider [phone] Social History Tobacco Use Types Packs/Day Years [...] age to complete this topic Care Teams Retail Account Executive Relationship Specialty Start Date End Date Reggie Tam DO [address] [place] [address] PCP - General Family Medicine 10/05/17
== END 2025-03-06 10:04 | disposition home or self-care (01) ==
LOC: HO.HMCH 09:24
PROVIDERS: PCP Internal Medicine; Visit Provider Internal Medicine
DX: E11.22 Type 2 diabetes mellitus with diabetic chronic kidney disease (principal); N18.31 Chronic kidney disease, stage 3a; N18.32 Chronic kidney disease, stage 3b; R80.9 Proteinuria, unspecified; E78.00 Pure hypercholesterolemia, unspecified; I10 Essential (primary) hypertension; M51.369 Other intervertebral disc degeneration, lumbar region without mention of lumbar back pain or lower extremity pain; M50.20 Other cervical disc displacement, unspecified cervical region; E55.9 Vitamin D deficiency, unspecified; M10.00 Idiopathic gout, unspecified site

== ENCOUNTER → 2025-03-06 09:23 | Outpatient (BNVA) | payer MEDICARE, SELFPAY | PROVIDERS: PCP Internal Medicine; Visit Provider Internal Medicine | DX: I12.9 Hypertensive chronic kidney disease with stage 1 through stage 4 chronic kidney disease, or unspecified chronic kidney disease (principal); E11.22 Type 2 diabetes mellitus with diabetic chronic kidney disease; N18.31 Chronic kidney disease, stage 3a; R80.9 Proteinuria, unspecified; E78.00 Pure hypercholesterolemia, unspecified; M51.369 Other intervertebral disc degeneration, lumbar region without mention of lumbar back pain or lower extremity pain; M50.20 Other cervical disc displacement, unspecified cervical region; E55.9 Vitamin D deficiency, unspecified; M10.00 Idiopathic gout, unspecified site; Z87.891 Personal history of nicotine dependence | CPT/HCPCS: 96127; 99212 ==

== ENCOUNTER 2025-04-14 06:00 | Outpatient (REF) | payer MEDICARE, SELFPAY ==
[2025-04-14 07:43] LABS: Anion Gap 13 (12-20); Blood Urea Nitrogen 35 mg/dL (9-16); Carbon Dioxide 26 mmol/L (22-29); Chloride 105 mmol/L (96-108); Estimated Glomerular Filt Rate 34; Sodium 139 mmol/L (135-145)
[2025-04-14 07:56] LABS: Creatinine Urine 112.77 mg/dL; Protein/Creatinine Ratio, Ur 0.18 (<0.2); Total Protein Urine Random 20 mg/dL (<12)
== END 2025-04-14 06:01 | disposition home or self-care (01) ==
LOC: HO.LAB 06:00
PROVIDERS: PCP Internal Medicine; Visit Provider Internal Medicine Nephrology
DX: I12.9 Hypertensive chronic kidney disease with stage 1 through stage 4 chronic kidney disease, or unspecified chronic kidney disease (principal); E11.22 Type 2 diabetes mellitus with diabetic chronic kidney disease; N18.32 Chronic kidney disease, stage 3b; E11.21 Type 2 diabetes mellitus with diabetic nephropathy
CPT/HCPCS: 36415; 80051; 82565; 82570; 84156; 84520

== ENCOUNTER 2025-04-21 11:36 | Outpatient (AMB) | payer MEDICARE, SELFPAY ==
[2025-04-21 12:10] VITALS: BP 122/62; PULSE 76; O2SAT 96; BMI 23.4
--- NOTE | 2025-04-21 12:10 | HO.NEPHOV_ITS ---
Vital Signs 04/21/25 12:10 Height 5 ft 6 in Weight 145 lb BMI 23.4 BP 122/62 Blood Pressure Location Lt brachial Position Sitting Pulse 76 Pulse Source Pulse Oximeter Pulse Oximetry (%) 96 Oxygen Delivery Method Room Air Intake Visit Reasons: 3m follow up-Conf Director Private Required: No Accompanied by: Self / Same As Patient Allergies amlodipine Adverse Reaction (Intermediate, Verified 04/21/25 12:12) edema HPI Comments Details: Yrn was seen in follow up for management of his chronic kidney disease and hypertension. He has been a diabetic for over 10 years. He is known to have proteinuria. His blood pressure has been at goal. He does not have any edema. He has some prostatic symptoms. He has never had a renal biopsy. He denies any chest pain, shortness of breath, proximal nocturnal dyspnea, orthopnea, pedal edema, hematuria, epistaxis, photosensitivity, joint swellings, hematemesis, melena. He does not take any nonsteroidal anti-inflammatory medications. He hydrates himself very well. His serum creatinine has gone up PFSH Medical History Bilateral cataracts Cervical disc herniation Chronic kidney disease (CKD), stage III (moderate) Vitamin D deficiency Gout Lumbar degenerative disc disease Benign essential hypertension Pure hypercholesterolemia Proteinuria, unspecified Type 2 diabetes mellitus with diabetic chronic kidney disease Surgical History History of right cataract surgery (12/15/24) History of extraction of renal calculus History of cervical discectomy History of laminectomy Family History Father No problems noted. Mother No problems noted. Brother Diabetes Brother Heart problem Social History Household Members: Spouse Housing: House Are you a primary senior resident care director to a significant other at home: No Do you presently have visiting nurse or other home services: No Alcohol intake: former Patient Tobacco Use Status: Former Tobacco user e-Cigarette/Vaping Use: Never Used Second Hand Smoke Exposure: Yes service: No Current occupational status: retired Cognitive needs: No Hearing needs: No Vision needs: No Review of Systems Const All systems reviewed & are unremarkable except as noted in HPI and below Physical Exam Vital Signs: Last Vital Signs Pulse 76 04/21/25 12:10 BP 122/62 04/21/25 12:10 Pulse Ox 96 04/21/25 12:10 Oxygen Delivery Method Room Air 04/21/25 12:10 BMI result Body Mass Index 23.4 Const General: comfortable and no acute distress Orientation/consciousness: patient oriented x3 HEENT Head: Yes normocephalic Mouth: Normal oral and palatal mucosa present Eyes EOM: EOMs intact bilaterally Neck Neck: Yes supple Resp Auscultation: clear to auscultation bilaterally Cardio Jugular venous distension: no JVD Rate: regular rate GI Palpation (GI): Soft to palpation Auscultation: normal bowel sounds General: Yes no CVA tenderness Back/Spine/Pelvis Back: no CVA tenderness Skin General skin exam: no rashes or lesions noted Neuro General: patient oriented x3 and moves all extremities Extrem General: Yes no pedal edema Results Reviewed Nephrology Results: Hgb 15.7 g/dl (14.0-18.0) 02/26/25 WBC 4.9 X10*3/uL (4.8-10.8) 02/26/25 Plt Count 175 X10*3/uL (160-400) 02/26/25 Sodium 139 mmol/L (135-145) 04/14/25 Potassium 5.0 mmol/L (3.3-5.1) 04/14/25 Chloride 105 mmol/L (96-108) 04/14/25 Carbon Dioxide 26 mmol/L (22-29) 04/14/25 BUN 35 mg/dL (9-16) H 04/14/25 Creatinine 1.98 mg/dL (0.5-1.4) H 04/14/25 Calcium 9.6 mg/dL (8.4-10.2) 02/26/25 Urine Protein 30 (1+) mg/dL (Neg-Trace) H 02/26/25 Urine Creatinine 112.77 mg/dL 04/14/25 Protein/Creatinin Ratio 0.18 (<0.2) 04/14/25 Assessment & Plan Assessment & Plan (1) Hypertension: Code(s): I10 - Essential (primary) hypertension Category: Medical Qualifiers: Hypertension type: primary hypertension Qualified Code(s): I10 - Essential (primary) hypertension (2) Diabetic nephropathy: Code(s): E11.21 - Type 2 diabetes mellitus with diabetic nephropathy Category: Medical Qualifiers: Diabetes mellitus type: type 2 Qualified Code(s): E11.21 - Type 2 diabetes mellitus with diabetic nephropathy (3) Acute kidney injury: Code(s): N17.9 - Acute kidney failure, unspecified Category: Medical (4) Chronic kidney disease (CKD), stage III (moderate): Code(s): N18.30 - Chronic kidney disease, stage 3 unspecified Category: Medical Qualifiers: Chronic kidney disease stage 3 subtype: stage 3b (GFR 30-44) Qualified Code(s): N18.32 - Chronic kidney disease, stage 3b Qasim Pool 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 He has not had proteinuria. He is on BERT-inhibitor. I reduced his lisinopril to 10 mg daily given rise in serum creatinine. His serum potassium is high normal. His blood pressure is at goal. He hydrates himself well. He never had a renal biopsy. He should continue Jardiance 25 mg daily. He may need an alpha reyna if he has ongoing prostatic symptoms. He needs to keep his LDL low. I did not make any other medication changes today. All his questions were answered Orders: Orders Creatinine 1 Month N17.9 - Acute kidney failure, unspecified Electrolytes 1 Month N17.9 - Acute kidney failure, unspecified Blood Urea Nitrogen 1 Month N17.9 - Acute kidney failure, unspecified Medications: Changed From lisinopril 20 mg PO DAILY 90 days 90 tabs 2RF To lisinopril 10 mg PO DAILY 90 days 90 tabs 2RF Coding Level of Care Code Est Pt Level 4 (59194) Diagnoses Primary hypertension I10 Hypertension type: primary hypertension Diabetic nephropathy associated with type 2 diabetes mellitus E11.21 Diabetes mellitus type: type 2 Acute kidney injury N17.9 Stage 3b chronic kidney disease N18.32 Chronic kidney disease stage 3 subtype: stage 3b (GFR 30-44)
--- OUTSIDE RECORDS SUMMARY | 2025-04-21 13:12 | XMS_ITS | Encounter Summary ---
Author Organization [facility] Address [address] [facility] [address] [place] [address] Phone Care Team Providers Care House Admin Name Role Phone Nikhil Knutson MD Primary Care Provider [phone] Reason for Visit * Reason Comments Med Refill Encounter Details Date Type Department Care Team (Late st Contact Info) Description 02/08/2024 Refill [facility] [address] [place] [phone] Ki Figueroa MD [address] [facility] [address] [place] [phone] Hypertensive disorder Social History Tobacco Use Types [...] disorder documented in this encounter Care Teams House Admin Relationship Specialty Start Date End Date Nikhil Knutson MD [address] [facility] [address] [place], [place] [phone] PCP - General 11/03/22 documented as of this encounter
== END 2025-04-21 12:36 | disposition home or self-care (01) ==
PROVIDERS: PCP Internal Medicine; Visit Provider Internal Medicine Nephrology
DX: I10 Essential (primary) hypertension (principal); E11.21 Type 2 diabetes mellitus with diabetic nephropathy; N17.9 Acute kidney failure, unspecified; N18.32 Chronic kidney disease, stage 3b
CPT/HCPCS: 99214

== ENCOUNTER → 2025-04-21 11:36 | Outpatient (BNVA) | payer MEDICARE, SELFPAY | PROVIDERS: PCP Internal Medicine; Visit Provider Internal Medicine Nephrology | DX: E11.22 Type 2 diabetes mellitus with diabetic chronic kidney disease (principal); I12.9 Hypertensive chronic kidney disease with stage 1 through stage 4 chronic kidney disease, or unspecified chronic kidney disease; N18.32 Chronic kidney disease, stage 3b; E11.21 Type 2 diabetes mellitus with diabetic nephropathy; N17.9 Acute kidney failure, unspecified | CPT/HCPCS: 99212 ==

== ENCOUNTER 2025-05-15 06:40 | Outpatient (REF) | payer MEDICARE, SELFPAY ==
[2025-05-15 08:30] LABS: Anion Gap 12 (12-20); Blood Urea Nitrogen 35 mg/dL (9-16); Carbon Dioxide 25 mmol/L (22-29); Chloride 105 mmol/L (96-108); Estimated Glomerular Filt Rate 40; Potassium 4.1 mmol/L (3.3-5.1); Sodium 138 mmol/L (135-145)
== END 2025-05-15 06:41 | disposition home or self-care (01) ==
LOC: HO.LAB 06:40
PROVIDERS: PCP Internal Medicine; Visit Provider Internal Medicine Nephrology
DX: N17.9 Acute kidney failure, unspecified (principal)
CPT/HCPCS: 36415; 80051; 82565; 84520

== ENCOUNTER 2025-05-21 09:39 | Outpatient (AMB) | payer MEDICARE, SELFPAY ==
--- NOTE | 2025-05-21 09:43 | HO.NEPHOV_ITS ---
Vital Signs 05/21/25 09:50 Height 5 ft 6 in Weight 146 lb 4 oz BMI 23.6 BP 120/60 Blood Pressure Location Lt brachial Position Sitting Pulse 77 Pulse Source Pulse Oximeter Pulse Oximetry (%) 96 Oxygen Delivery Method Room Air Intake Visit Reasons: 1m follow up-Conf Supervisor Scrap Preparation Required: No Accompanied by: Self / Same As Patient Allergies amlodipine Adverse Reaction (Intermediate, Verified 05/21/25 09:50) edema HPI Comments Details: Yrn was seen in follow up for management of his chronic kidney disease and hypertension. He has been a diabetic for over 10 years. He is known to have proteinuria. His blood pressure has been at goal. He does not have any edema. He has some prostatic symptoms. He has never had a renal biopsy. He denies any chest pain, shortness of breath, proximal nocturnal dyspnea, orthopnea, pedal edema, hematuria, epistaxis, photosensitivity, joint swellings, hematemesis, melena. He does not take any nonsteroidal anti-inflammatory medications. He hydrates himself very well. His serum creatinine has improved after reducing the dose of lisinopril [facility] Medical History Bilateral cataracts Cervical disc herniation Chronic kidney disease (CKD), stage III (moderate) Vitamin D deficiency Gout Lumbar degenerative disc disease Benign essential hypertension Pure hypercholesterolemia Proteinuria, unspecified Type 2 diabetes mellitus with diabetic chronic kidney disease Surgical History History of right cataract surgery (12/15/24) History of extraction of renal calculus History of cervical discectomy History of laminectomy Family History Father No problems noted. Mother No problems noted. Brother Diabetes Brother Heart problem Social History Household Members: Spouse Housing: House Are you a primary healthcare economics manager to a significant other at home: No Do you presently have visiting nurse or other home services: No Alcohol intake: former Patient Tobacco Use Status: Former Tobacco user e-Cigarette/Vaping Use: Never Used Second Hand Smoke Exposure: Yes service: No Current occupational status: retired Cognitive needs: No Hearing needs: No Vision needs: No Review of Systems Const All systems reviewed & are unremarkable except as noted in HPI and below Physical Exam Const General: comfortable and no acute distress Orientation/consciousness: patient oriented x3 HEENT Head: Yes normocephalic Mouth: Normal oral and palatal mucosa present Eyes EOM: EOMs intact bilaterally Neck Neck: Yes supple Resp Auscultation: clear to auscultation bilaterally Cardio Jugular venous distension: no JVD Rate: regular rate GI Palpation (GI): Soft to palpation Auscultation: normal bowel sounds General: Yes no CVA tenderness Back/Spine/Pelvis Back: no CVA tenderness Skin General skin exam: no rashes or lesions noted Neuro General: patient oriented x3 and moves all extremities Extrem General: Yes no pedal edema Results Reviewed Nephrology Results: Hgb, (14.0-18.0) 15.7 g/dl 02/26/25 WBC, (4.8-10.8) 4.9 X10*3/uL 02/26/25 Plt Count, (160-400) 175 X10*3/uL 02/26/25 Sodium, (135-145) 138 mmol/L 05/15/25 Potassium, (3.3-5.1) 4.1 mmol/L 05/15/25 Chloride, (96-108) 105 mmol/L 05/15/25 Carbon Dioxide, (22-29) 25 mmol/L 05/15/25 BUN, (9-16) 35 mg/dL H 05/15/25 Creatinine, (0.5-1.4) 1.70 mg/dL H 05/15/25 Calcium, (8.4-10.2) 9.6 mg/dL 02/26/25 Urine Protein, (Neg-Trace) 30 (1+) mg/dL H 02/26/25 Urine Creatinine 112.77 mg/dL 04/14/25 Protein/Creatinin Ratio, (<0.2) 0.18 04/14/25 Assessment & Plan Assessment & Plan (1) Hypertension: Code(s): I10 - Essential (primary) hypertension Category: Medical Qualifiers: Hypertension type: primary hypertension Qualified Code(s): I10 - Essential (primary) hypertension (2) Chronic kidney disease (CKD), stage III (moderate): Code(s): N18.30 - Chronic kidney disease, stage 3 unspecified Category: Medical Qualifiers: Chronic kidney disease stage 3 subtype: stage 3b (GFR 30-44) Qualified Code(s): N18.32 - Chronic kidney disease, stage 3b Qasim Pool 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 He has not had significant proteinuria. He is on BERT-inhibitor. He can continue lisinopril 10 mg daily given improvement in serum creatinine. His serum potassium is normal. His blood pressure is at goal. He hydrates himself well. He never had a renal biopsy. He should continue Jardiance 25 mg daily. He may need an alpha reyna if he has ongoing prostatic symptoms. He needs to keep his LDL low. I did not make any other medication changes today. All his questions were answered Orders: Orders Protein Creatinine Ratio, Ur 3 Months I10 - Essential (primary) hypertension, N18.32 - Chronic kidney disease, stage 3b Electrolytes 3 Months I10 - Essential (primary) hypertension, N18.32 - Chronic kidney disease, stage 3b Calcium 3 Months I10 - Essential (primary) hypertension, N18.32 - Chronic kidney disease, stage 3b Creatinine 3 Months I10 - Essential (primary) hypertension, N18.32 - Chronic kidney disease, stage 3b Blood Urea Nitrogen 3 Months I10 - Essential (primary) hypertension, N18.32 - Chronic kidney disease, stage 3b Coding Level of Care Code Est Pt Level 4 (10035) Diagnoses Primary hypertension I10 Hypertension type: primary hypertension Stage 3b chronic kidney disease N18.32 Chronic kidney disease stage 3 subtype: stage 3b (GFR 30-44)
[2025-05-21 09:50] VITALS: BP 120/60; PULSE 77; O2SAT 96; BMI 23.6
--- OUTSIDE RECORDS SUMMARY | 2025-05-21 09:59 | XMS_ITS | Encounter Summary ---
Author Organization [facility] Address [address] [facility] [address] [place] [address] Phone Care Team Providers Care Administrative Court Justice Name Role Phone Nikhil Knutson MD Primary Care Provider [phone]- [phone] Reason for Visit * Reason Comments Med Refill Encounter Details Date Type Department Care Team (Late st Contact Info) Description 02/08/2024 Refill [facility] [address] [place] [phone] Ki Figueroa MD [address] [facility] [address] [place] [phone] Hypertensive disorder Social History Tobacco Use Types [...] disorder documented in this encounter Care Teams Administrative Court Justice Relationship Specialty Start Date End Date Nikhil Knutson MD [address] [facility] [address] [place], [place] [phone] PCP - General 11/03/22 documented as of this encounter
--- OUTSIDE RECORDS SUMMARY | 2025-05-21 09:59 | XMS_ITS | Patient Health Record ---
Author Organization [facility] Address [address] [place] [address] Care Team Providers Care Freezer Tunnel Operator Name Role Phone Anel (RETIRED) Reggie [place] Primary Care Provide r Unavailable Tray Oneal Unavailable [phone] Reason For Referral No Information Medications Medication SIG (Take, Route, Frequency, Duration) Notes Start Date End Date Status Aspir-81 81 MG 1 tablet Orally Once a day Active Lisinopril 20 MG 1 tablet Orally Once a day Active [place] 3 1200 MG 2 capsule Orally Once a day Active glipiZIDE 5 MG as directed Orally o nce a day Active Pravastatin Sodium 40 MG 1 tablet Orally Once a day Active metFORMIN HCl ER 500 MG 1 tablet with ev ening meal Orally Once a day Active amLODIPine Besylate 5 MG 1 tablet Orally Once a day Active Immunizations Vaccine Route Administration Date Status Comme nts Influenza Unknown 08/20/2018 Administered Problems Problem Type SNOMED Code ICD Code Onset Dates Problem Status W/U Status Risk Notes Problem [id number] Encounter for screening for malignant neoplasm of colon (Z12.11) Active confirmed Problem 275642968 History of adenomatous polyp of colon (Z86.010) Active confirmed Problem 326656848956000 Pre-procedural examination (Z01.818) Active confirmed Problem 594552901401424 Encounter for long-term (current) aspirin use (Z79.82) Active confirmed Plan Of Treatment Pending Test Test Name Order Date GI BIOPSY 01/23/2019 Future Test Test Name Order Date COLONOSCOPY 08/27/2013 COLONOSCOPY 12/11/2018 Insurance Providers Payer Name Payer Address Payer Phone Subscriber Number Group Number Insured Name Patient Relationship to Insured Coverage Start Date Coverage End Date [employer] [address] [place] [address] [id number] EILEEN NOLASCO Self - patient is the insured Medical (General) History Medical History History ICD Code Screening colonoscopy 2007--1 small tubualr adenoma removed; colonoscopy in 11/2013--hyperplastic polyp only Diverticulosis Hypertension Hyperlipidemia NIDDM Kidney iwosotr-hstaccopubu-szvj Dr. Fernandez Denies [place],Lung disease, CVA Surgical History Surgery Date(Month/Year) C-spine surgery x 2 in 2011 and 2017
--- OUTSIDE RECORDS SUMMARY | 2025-05-21 09:59 | XMS_ITS | Clinical Summary ---
Author Organization [facility] ity Address [address] [place] [address] Care Team Providers Care Computer Hardware Developer Name Role Phone Reggie Tam DO Primary Care Provider [phone] Social History Tobacco Use Types Packs/Day Years [...] 2023-2 5 season) 2024 Influenza Vaccine (#1) 2025 RSV Immunization Adult Patie nts (1 [...] age to complete this topic Care Teams Computer Hardware Developer Relationship Specialty Start Date End Date Reggie Tam DO [address] [place] [address] PCP - General Family Medicine 10/05/17
== END 2025-05-21 10:01 | disposition home or self-care (01) ==
LOC: HO.HKAS 09:40
PROVIDERS: PCP Internal Medicine; Visit Provider Internal Medicine Nephrology
DX: I10 Essential (primary) hypertension (principal); N18.32 Chronic kidney disease, stage 3b
CPT/HCPCS: 99214

== ENCOUNTER → 2025-05-21 09:39 | Outpatient (BNVA) | payer MEDICARE, SELFPAY | PROVIDERS: PCP Internal Medicine; Visit Provider Internal Medicine Nephrology | DX: E11.22 Type 2 diabetes mellitus with diabetic chronic kidney disease (principal); I12.9 Hypertensive chronic kidney disease with stage 1 through stage 4 chronic kidney disease, or unspecified chronic kidney disease; N18.32 Chronic kidney disease, stage 3b | CPT/HCPCS: 99212 ==

== ENCOUNTER 2025-07-07 06:00 | Outpatient (REF) | payer MEDICARE, SELFPAY ==
--- OUTSIDE RECORDS SUMMARY | 2025-07-07 06:03 | XMS_ITS | Patient Health Record ---
Author Organization [facility] Address [address] [place] [address] Care Team Providers Care Head Rose Grower Name Role Phone Anel (RETIRED) Reggie [place] Primary Care Provide r Unavailable Tray Oneal Unavailable [phone] Reason For Referral No Information Medications Medication SIG (Take, Route, Frequency, Duration) Notes Start Date End Date Status Aspir-81 81 MG 1 tablet Orally Once a day Active Lisinopril 20 MG 1 tablet Orally Once a day Active [place] 3 1200 MG 2 capsule Orally Once [...] Problem Status W/U Status Risk Notes Problem 780345304 Encounter for screening for malignant neoplasm of colon (Z12.11) Active confirmed Problem 802464935 History of adenomatous polyp of colon (Z86.010) Active confirmed Problem 693326412505607 Pre-procedural examination (Z01.818) Active confirmed Problem 900154123421350 Encounter for long-term (current) aspirin use (Z79.82) Active confirmed Plan Of Treatment Pending Test Test Name Order Date GI BIOPSY 01/23/2019 Future Test Test Name Order Date COLONOSCOPY 08/27/2013 COLONOSCOPY 12/11/2018 Insurance Providers Payer Name Payer Address Payer Phone Subscriber Number Group Number Insured Name Patient Relationship to Insured Coverage Start Date Coverage End Date [employer] [address] [place] [address] [id number] EILEEN NOLASCO Self - patient is the insured Medical (General) History Medical History History ICD Code Screening colonoscopy 2007--1 small tubualr adenoma removed; colonoscopy in 11/2013--hyperplastic polyp only Diverticulosis Hypertension Hyperlipidemia NIDDM Kidney vchncll-qltwilamnjb-eqrc Dr. Fernandez Denies [place],Lung disease, CVA Surgical History Surgery Date(Month/Year) C-spine surgery x 2 in 2011 and 2017
--- OUTSIDE RECORDS SUMMARY | 2025-07-07 06:03 | XMS_ITS | Clinical Summary ---
Author Organization [facility] ity Address [address] [place] [address] Care Team Providers Care Sewer Pipe Cleaner Name Role Phone Reggie Tam DO Primary Care Provider [phone] Social History Tobacco Use Types Packs/Day Years [...] 2005 Zoster Vaccines (1 of 2) 2005 Depression Screening 11/05/2024 COVID-19 Vaccine (1 - 2023-2 5 season) 2025 Influenza Vaccine (#1) 2025 RSV Immunization Adult [...] age to complete this topic Care Teams Sewer Pipe Cleaner Relationship Specialty Start Date End Date Reggie Tam DO [address] [place] [address] [place] [address] PCP - General Family Medicine 10/05/17
--- OUTSIDE RECORDS SUMMARY | 2025-07-07 06:03 | XMS_ITS | Encounter Summary ---
Author Organization [facility] Address [address] [place] [address] Phone Care Team Providers Care Conveyor Console Operator Name Role Phone Nikhil Knutson MD Primary Care Provider [phone] Reason for Visit * Reason Comments Med Refill Encounter Details Date Type Department Care Team (Late st Contact Info) Description 12/07/2023 Refill [facility] [address] [place] [phone] Ki Figueroa MD [address] [place] [phone] Renal disorder due to type 2 diabetes [...] (HCC) documented in this encounter Care Teams Conveyor Console Operator Relationship Specialty Start Date End Date Nikhil Knutson MD [address] [place] [address] PCP - General 11/03/22 documented as of this encounter
--- OUTSIDE RECORDS SUMMARY | 2025-07-07 06:03 | XMS_ITS | Encounter Summary ---
Author Organization [facility] Address [address] [facility] [address] [place] [address] Phone Care Team Providers Care Hydrate Thickener Operator Name Role Phone Nikhil Knutson MD Primary Care Provider [phone] Reason for Visit * Reason Comments Med Refill Encounter Details Date Type Department Care Team (Late st Contact Info) Description 02/08/2024 Refill [facility] [address] [place] [phone] Ki Figueroa MD [address] [facility] [address] [place] [phone] Hypertensive disorder Social History Tobacco Use Types [...] disorder documented in this encounter Care Teams Hydrate Thickener Operator Relationship Specialty Start Date End Date Nikhil Knutson MD [address] [facility] [address] [place], [place] [phone] PCP - General 11/03/22 documented as of this encounter
--- OUTSIDE RECORDS SUMMARY | 2025-07-07 06:03 | XMS_ITS | Clinical Summary ---
Author Organization [facility] Address [address] [address] Care Team Providers Care Cash Reconciliation Specialist Name Role Phone Nikhil Knutson MD Primary Care Provider [phone] Allergies No known active allergies Medications pravastatin [...] Visual Foot Exam 12/06/2020 Influenza Vaccine (#1) 2025 Hepatitis B Vaccine Aged Out No longe r eligible based on patient's age to complete this topic Insurance [facility] Medicare [facility] Care Teams Cash Reconciliation Specialist Relationship Specialty Start Date End Date Nikhil Knutson MD [address] [place] [address] PCP - General 11/03/22
--- OUTSIDE RECORDS SUMMARY | 2025-07-07 06:03 | XMS_ITS | Encounter Summary ---
Author Organization [facility] Address [address] [facility] [address] [place] [address] Phone Care Team Providers Care Reroller Hand Name Role Phone Nikhil Knutson MD Primary Care Provider +1- [phone] Reason for Visit * Reason Comments Med Refill Encounter Details Date Type Department Care Team (Late st Contact Info) Description 02/09/2024 [facility]ill [facility] [address] [place] [phone] Ki Figureoa MD [address] [facility] [address] [place] [phone] Hypertensive disorder Social History Tobacco Use Types [...] disorder documented in this encounter Care Teams Reroller Hand Relationship Specialty Start Date End Date Nikhil Knutson MD [address] [place], [place] [phone] PCP - General 11/03/22 documented as of this encounter
[2025-07-07 06:19] LABS: MANUAL DIFF FLAG NO
[2025-07-07 07:38] LABS: Hematocrit 50.4 % (42.0-52.0); Hemoglobin 16.0 g/dl (14.0-18.0); Imm Gran Abs Auto 0.02 X10*3/uL (0.00-0.03); Imm Gran Pct Auto 0.3 % (0.0-0.4); Lymphocytes Absolute Auto 1.0 X10*3/uL (1.2-4.9); Mean Corpuscular HGB Conc 31.7 g/dl (31.0-36.0); Mean Corpuscular Hemoglobin 27.0 pg (27.0-33.0); Mean Corpuscular Volume 85.0 fL (80.0-98.0); NRBC Abs Auto 0.000 X10*3/uL (0.0-0.012); NRBC Pct Auto 0.0 /100WBC (0.0-0.2); Platelet Count 189 X10*3/uL (160-400); Red Blood Count 5.93 X10*6/uL (4.60-5.80); White Blood Count 5.7 X10*3/uL (4.8-10.8)
[2025-07-07 08:01] LABS: Appearance Urine Clear; Glucose Urine UA >=1000 mg/dL (Negative); PH 5.5 (5.0-9.0); Specific Gravity - Urine 1.025 (1.005-1.025); UMIC TRIGGER UACC YES
[2025-07-07 08:03] LABS: Hemoglobin A1C 202.7493 umol/L; Total Hemoglobin (HGBA1C) 4108.5303 umol/L
[2025-07-07 08:05] LABS: Alanine Aminotransferase 31 U/L (0-40); Albumin Level 4.3 g/dL (3.5-5.0); Alkaline Phosphatase 58 U/L (39-117); Anion Gap 14 (12-20); Aspartate Amino Transferase 34 U/L (5-37); Blood Urea Nitrogen 23 mg/dL (9-16); Calcium 9.2 mg/dL (8.4-10.2); Carbon Dioxide 28 mmol/L (22-29); Chloride 107 mmol/L (96-108); Cholesterol 164 mg/dL (<200); Estimated Glomerular Filt Rate 45; HDL Cholesterol 51 mg/dL (>40); Potassium 4.8 mmol/L (3.3-5.1); Sodium 144 mmol/L (135-145); Total Protein 6.9 g/dL (6.5-8.0); Triglycerides 69 mg/dL (<150)
[2025-07-07 08:33] LABS: Uric Acid 6.0 mg/dL (3.4-7.0)
[2025-07-07 08:36] LABS: Folate 9.1 ng/mL (> or = 4.0); Vitamin B12 419 pg/mL (200-900)
[2025-07-07 09:10] LABS: Microalbum/Creatinine Ratio Ur 652.3 ug/mg cr (<30)
[2025-07-07 09:15] LABS: Free T4 (Free Thyroxine) 0.99 ng/dL (0.71-1.85)
== END 2025-07-07 06:01 | disposition home or self-care (01) ==
LOC: HO.LAB 06:00
PROVIDERS: PCP Internal Medicine; Visit Provider Internal Medicine
DX: E11.9 Type 2 diabetes mellitus without complications (principal); M10.9 Gout, unspecified; E78.00 Pure hypercholesterolemia, unspecified; D64.9 Anemia, unspecified; E53.8 Deficiency of other specified B group vitamins; E55.9 Vitamin D deficiency, unspecified
CPT/HCPCS: 36415; 80053; 80061; 81001; 81003; 82043; 82306; 82570; 82607; 82746; 83036; 84439; 84443; 84550; 85025

== ENCOUNTER 2025-07-17 09:10 | Outpatient (AMB) | payer MEDICARE, SELFPAY ==
[2025-07-17 09:13] VITALS: BP 138/90; PULSE 72; O2SAT 98; BMI 23.2
--- NOTE | 2025-07-17 09:13 | MHC.PC.OV ---
Vital Signs 07/17/25 09:13 07/17/25 09:41 Height 5 ft 6 in Weight 144 lb BMI 23.2 BP 138/90 H 130/78 Blood Pressure Location Lt brachial Lt brachial Position Sitting Sitting Pulse 72 Pulse Source Pulse Oximeter Pulse Oximetry (%) 98 Oxygen Delivery Method Room Air Intake Visit Reasons: DM, CKD, hyperlipidemia Gravity Meter Operator Required: No Accompanied by: Self / Same As Patient Allergies amlodipine Adverse Reaction (Intermediate, Verified 07/17/25 09:32) edema Medication List - Last Reconciled 07/17/25 by Nikhil Knutson MD allopurinol 100 mg PO DAILY blood sugar diagnostic 1 strip miscellaneous DAILY 30 days blood sugar diagnostic (Contour Test Strips) As directed one time per day cholecalciferol (vitamin D3) 25 mcg PO DAILY empagliflozin (Jardiance) 25 mg PO QAM 90 days glipizide ER 5 mg PO DAILY hydralazine 50 mg PO TID 90 days labetalol 200 mg PO BID 90 days Lantus Solostar U-100 Insulin (insulin glargine) 10 units (0.1 mL) subcut QPM NS lisinopril 10 mg PO DAILY 90 days metformin ER 500 mg PO BEDTIME omega-3 fatty acids (Fish Oil Concentrate) 1,000 mg PO DAILY pen needle, diabetic As directed once a day pravastatin 40 mg PO DAILY Tobacco use date assessed: 07/17/25 Fall risk assessment: No Falls in past year Last assessed Fall Risk: 07/17/25 Dental Screening Dental Screen Date: 07/17/25 Did you have a dental visit in the last 12 months?: Yes Did you have a dental problem in the last 6 months where you did not have access to dental care?: No Was dental information given to patient?: Patient has dentist HPI DM, CKD, hyperlipidemia HPI Details Patient comes in today for his follow up visit for his DM, CKD, HTN, hyperlipidemia and gout States that he feels okay He denies any headaches or dizziness Denies any chest pains, no increased SOB No nausea/vomiting, no abdominal pain No change in bowel habits noted He had his follow up labs done last week - to discuss his results [facility] Medical History Bilateral cataracts Cervical disc herniation Chronic kidney disease (CKD), stage III (moderate) Vitamin D deficiency Gout Lumbar degenerative disc disease Benign essential hypertension Pure hypercholesterolemia Proteinuria, unspecified Type 2 diabetes mellitus with diabetic chronic kidney disease Surgical History History of right cataract surgery (12/15/24) History of extraction of renal calculus History of cervical discectomy History of laminectomy Family History Father No problems noted. Mother No problems noted. Brother Diabetes Brother Heart problem Social History Household Members: Spouse Housing: House Are you a primary inpatient care manager rn to a significant other at home: No Do you presently have visiting nurse or other home services: No Alcohol intake: former Patient Tobacco Use Status: Former Tobacco user e-Cigarette/Vaping Use: Never Used Second Hand Smoke Exposure: Yes service: No Current occupational status: retired Cognitive needs: No Hearing needs: No Vision needs: No Questionnaire PHQ-9 Over the last 2 weeks, how often have you been bothered by any of the following problems? 1. Little interest or pleasure in doing things: several days 2. Feeling down, depressed, or hopeless: not at all 3. Trouble falling or staying asleep, or sleeping too much: not at all 4. Feeling tired or having little energy: several days 5. Poor appetite or overeating: several days 6. Feeling bad about yourself - or that you are a failure or have let yourself or your family down: not at all 7. Trouble concentrating on things, such as reading the newspaper or watching television: not at all 8. Moving or speaking so slowly that other people could have noticed. Or the opposite - being so fidgety or restless that you have been moving around a lot more than usual: not at all 9. Thoughts that you would be better off or of hurting yourself in some way: not at all Total score: 3 Depression Screening Interpretation: Negative Depression Screening Done: Yes 19225 - PHQ-9 Billing: Yes Source: Developed by Drs. Tray Benoit, Frannie Tolentino, Jarett Santiago and colleagues, with an educational karlos from [employer]. Thrive Questionnaire Date Thrive assessed: 07/17/25 I am a: Patient What is your living situation today?: I have a steady place to live Within the past 12 months, did the food you bought not last and you didn't have the money to get more?: I choose not to answer this question Within the past 12 months, did you worry whether your food would run out before you got money to buy more?: I choose not to answer this question Do you have trouble paying for medicines?: No Do you have trouble getting transportation to medical appointments?: No Do you have trouble paying your heating and electricity bill?: No Do you have trouble taking care of your child, family member or friend?: I choose not to answer this question Do you have trouble with day-to-day activities such as bathing, preparing meals, shopping, managing finances, etc.?: No Are you currently unemployed and looking for a job?: No Are you interested in more education?: No Please select the resources that you would like help with: None Currently or been in a relationship where the following occur: No concerns reported THRIVE Score: 0 AUDIT C Alcohol Use Questionnaire (AUDIT-C) 1. How often do you have a drink containing alcohol?: Never 3. How often do you have six or more drinks on one occasion?: Never Total Score: 0 Score Reviewed/Action Taken: Yes PB-7 AMB Questionnaire PB-7 Date PB - 7 assessed: 07/17/25 Feeling nervous, anxious, or on edge: 0 = Not at all Not being able to stop or control worryin = Not at all Worrying too much about different things: 1 = Several days Trouble relaxin = Not at all Being so restless that it is hard to sit still: 0 = Not at all Becoming easily annoyed or irritable: 0 = Not at all Feeling afraid as if something awful might happen: 0 = Not at all Total PB-7 score (0-4 normal; 5-9 mild; 10-14 moderate; 15-21 severe): 1 Source: Developed by Drs. Tray Benoit, Frannie Tolentino, Jarett Santiago and colleagues, with an educational karlos from [employer]. Review of Systems Const Denies chills, Denies fatigue, Denies fever(s) and Denies headache(s) ENT Denies dysphagia, Denies dizziness, Denies otalgia, Denies headache(s), Reports neck pain (chronic but is mostly manageable), Denies odynophagia and Denies sore throat Card Denies chest pain, Denies palpitations and Denies dyspnea Resp Denies chest congestion, Denies cough and Denies dyspnea GI Denies abdominal pain, Denies constipation, Denies dysphagia, Denies heartburn, Denies diarrhea, Denies nausea, Denies odynophagia and Denies vomiting Denies difficulty urinating, Denies dysuria, Denies nocturia and Denies urinary frequency Musc Details: (+) recurrent pain in both feet Reports back pain (over the lower back - chronic) and Reports neck pain (chronic but is mostly manageable) Skin/Breast Denies rash Neuro Denies dizziness and Denies headache(s) Endo Denies fatigue and Denies palpitations Physical exam (Primary Care) Vital Signs: Last Vital Signs Pulse 72 07/17/25 09:13 BP 138/90 H 07/17/25 09:13 Pulse Ox 98 07/17/25 09:13 Oxygen Delivery Method Room Air 07/17/25 09:13 BMI result Body Mass Index 23.2 Tobacco/Smoking Status: Tobacco use Status Tobacco use date assessed 07/17/25 07/17/25 09:18 Patient Tobacco Use Status Former Tobacco user 07/17/25 09:18 e-Cigarette/Vaping Use Never Used 07/17/25 09:18 PHQ-9: PHQ-9 Score PHQ-9: Total score 3 07/17/25 09:18 Depression Screening Interpretation: Negative Thrive Assessment: Date of Thrive Assessment Date Thrive assessed 07/17/25 07/17/25 09:18 Currently or been in a relationship where the following occur: No concerns reported Const General: no acute distress and alert HENMT Ears: TM's normal bilaterally and EAC's normal Throat: Yes posterior oropharynx normal and Yes tonsils normal (no TP congestion noted) Neck Neck: No lymphadenopathy and Yes tender Thyroid: Thyroid normal Resp Auscultation: clear to auscultation bilaterally, no rales and no wheezes Cardio Rate: regular rate Rhythm: regular rhythm Heart sounds: no murmurs GI Palpation (GI): Soft to palpation and nontender Auscultation: normal bowel sounds General: Yes no CVA tenderness Back/Spine/Pelvis Back: no CVA tenderness Cervical Spine: Cervical spine tenderness Thoracic/Lumbar Spine: lumbar spinal tenderness Skin Rashes: no rashes Neuro Motor exam (neuro): Abnormal motor strength present left lower extremity other 3 / 5 Extrem General: Yes no clubbing, cyanosis or edema Results Reviewed Results Reviewed: Laboratory Tests 07/07/25 07/07/25 06:11 06:18 WBC 5.7 Hgb 16.0 Hct 50.4 Plt Count 189 Sodium 144 Potassium 4.8 Creatinine 1.54 H Estimated GFR 45 Fasting Glucose 116 H Hemoglobin A1c % 6.7 H Uric Acid 6.0 Calcium 9.2 AST 34 ALT 31 Triglycerides 69 Cholesterol 164 LDL Cholesterol, Calc 100 H HDL Cholesterol 51 Vitamin B12 419 25-OH Vitamin D Total 42.9 TSH 4.16 H Free T4 0.99 Ur Specific [place] 1.025 Urine Protein 100 (2+) H Urine Glucose (UA) >=1000 H Urine Blood Negative Urine Nitrite Negative Ur Leukocyte Esterase Negative Microalb/Creat Ratio 652.3 H Coding Level of Care Code Est Pt Level 4 (79383) Diagnoses Type 2 diabetes mellitus with stage 3a chronic kidney disease, without long-term current use of insulin E11.22; N18.31 Diabetes mellitus long-term insulin use: without long-term use Chronic kidney disease stage: stage 3 (moderate) Chronic kidney disease stage 3 subtype: stage 3a (GFR 45-59) Stage 3b chronic kidney disease N18.32 Chronic kidney disease stage 3 subtype: stage 3b (GFR 30-44) Proteinuria, unspecified type R80.9 Proteinuria type: unspecified Pure hypercholesterolemia E78.00 Benign essential hypertension I10 Degeneration of intervertebral disc of lumbar region, unspecified whether pain present M51.369 Disc-related pain type: unspecified whether pain present Cervical disc herniation M50.20 Vitamin D deficiency E55.9 Idiopathic gout, unspecified chronicity, unspecified site M10.00 Gout site: unspecified site Gout etiology: idiopathic Chronicity: unspecified Additional Codes PHQ-9 - 05247 - PHQ-9 Billing: Yes ([id number]) Assessment & Plan Assessment & Plan (1) Type 2 diabetes mellitus with diabetic chronic kidney disease: Code(s): E11.22 - Type 2 diabetes mellitus with diabetic chronic kidney disease Category: Medical Qualifiers: Diabetes mellitus long-term insulin use: without clinical lab assistant use Chronic kidney disease stage: stage 3 (moderate) Chronic kidney disease stage 3 subtype: stage 3a (GFR 45-59) Qualified Code(s): E11.22 - Type 2 diabetes mellitus with diabetic chronic kidney disease; N18.31 - Chronic kidney disease, stage 3a Plan: Patient's HgbA1c improved to 6.7% on his labs done last week (was at 7.4% a few months ago) - goal is at least <7.0% Reinforced diabetic diet Continue Metformin ER 500 mg QD, Glipizide ER 5 mg QD, Jardiance 25 mg QD and Lantus Solostar 10 units Q HS He is reminded to continue monitoring his blood sugar regularly (2) Chronic kidney disease (CKD), stage III (moderate): Code(s): N18.30 - Chronic kidney disease, stage 3 unspecified Category: Medical Qualifiers: Chronic kidney disease stage 3 subtype: stage 3b (GFR 30-44) Qualified Code(s): N18.32 - Chronic kidney disease, stage 3b Plan: His serum creatinine and GFR have remained stable on his recent labs We will continue to monitor his renal function closely Follow up with Dr. Vanegas as scheduled for nephrology follow up (3) Proteinuria, unspecified: Code(s): R80.9 - Proteinuria, unspecified Category: Medical Qualifiers: Proteinuria type: unspecified Qualified Code(s): R80.9 - Proteinuria, unspecified Plan: Stable Will continue to monitor his renal function regularly (4) Pure hypercholesterolemia: Code(s): E78.00 - Pure hypercholesterolemia, unspecified Category: Medical Plan: Results of his labs done last week reviewed and discussed with patient Reinforced low cholesterol diet Continue Pravastatin 40 mg QD Will recheck his labs and fasting lipids in 3 months for follow up (5) Benign essential hypertension: Code(s): I10 - Essential (primary) hypertension Category: Medical Plan: Reinforced low sodium diet - goal is systolic BP of at least 130 mm or less Continue Lisinopril 20 mg QD, Hydralazine 50 mg TID and Labetalol 200 mg BID Patient is reminded to continue monitoring his blood pressure regularly (6) Lumbar degenerative disc disease: Code(s): M51.36 - Other intervertebral disc degeneration, lumbar region Category: Medical Qualifiers: Disc-related pain type: unspecified whether pain present Qualified Code(s): M51.369 - Other intervertebral disc degeneration, lumbar region without mention of lumbar back pain or lower extremity pain Plan: Reinforced activity and weight-lifting restrictions Follow up with [facility] as scheduled - states that he gets back injections when needed, which provides him with (+) significant relief of his low back pain (7) Cervical disc herniation: Comment: C6-C7 - S/P discectomy Code(s): M50.20 - Other cervical disc displacement, unspecified cervical region Category: Medical Plan: States that his neck pain has been mostly manageable and he does not need anything else for his neck at this time (8) Vitamin D deficiency: Code(s): E55.9 - Vitamin D deficiency, unspecified Category: Medical Plan: Continue Vitamin D3 1000 units QD (9) Gout: Code(s): M10.9 - Gout, unspecified Category: Medical Qualifiers: Gout site: unspecified site Gout etiology: idiopathic Chronicity: unspecified Qualified Code(s): M10.00 - Idiopathic gout, unspecified site Plan: Reinforced low purine diet Serum uric acid has remained normal at 6.0 on his recent labs Continue Allopurinol 100 mg QD Plan Follow up in 3 months Orders: Orders Lipid Panel 3 Months E78.00 - Pure hypercholesterolemia, unspecified Microalbumin, Random (w Creat) 3 Months E11.9 - Type 2 diabetes mellitus without complications Uric Acid 3 Months M10.9 - Gout, unspecified TSH reflex Free T4 3 Months E78.00 - Pure hypercholesterolemia, unspecified Complete Blood Count Auto Diff 3 Months D64.9 - Anemia, unspecified Comprehensive Gibson. Panel Fast 3 Months E78.00 - Pure hypercholesterolemia, unspecified Hemoglobin A1c 3 Months E11.9 - Type 2 diabetes mellitus without complications UA CC w/rflx Micro + Cult 3 Months R30.0 - Dysuria
[2025-07-17 09:41] VITALS: BP 130/78
--- OUTSIDE RECORDS SUMMARY | 2025-07-17 10:08 | XMS_ITS | Encounter Summary ---
Author Organization [facility] Address [address] [facility] [address] [place] [address] Phone Care Team Providers Care Repairer Controller Tester Name Role Phone Nikhil Knutson MD Primary Care Provider +1- [phone] Reason for Visit * Reason Comments Med Refill Encounter Details Date Type Department Care Team (Late st Contact Info) Description 02/08/2024 [facility]ill [facility] [address] [place] [phone] Ki Figueroa MD [address] [facility] [address] [place] [phone] Hypertensive disorder Social History Tobacco Use Types [...] disorder documented in this encounter Care Teams Repairer Controller Tester Relationship Specialty Start Date End Date Nikhil Knutson MD [address] [facility] [address] [place], [place] [phone] PCP - General 11/03/22 documented as of this encounter
--- OUTSIDE RECORDS SUMMARY | 2025-07-17 10:08 | XMS_ITS | Clinical Summary ---
Author Organization [facility] ity Address [address] [place] [address] Care Team Providers Care Urban Anthropologist Name Role Phone Reggie Tam DO Primary Care Provider [phone] Social History Tobacco Use Types Packs/Day Years [...] age to complete this topic Care Teams Urban Anthropologist Relationship Specialty Start Date End Date Reggie Tam DO [address] [place] [address] [place] [address] PCP - General Family Medicine 10/05/17
--- OUTSIDE RECORDS SUMMARY | 2025-07-17 10:08 | XMS_ITS | Patient Health Record ---
Author Organization [facility] Address [address] [place] [address] Care Team Providers Care Biofuels Product Manager Name Role Phone Anel (RETIRED) Reggie [place] Primary Care Provide r Unavailable Tray Oneal Unavailable [phone] Reason For Referral No Information Medications Medication SIG (Take, Route, Frequency, Duration) Notes Start Date End Date Status Aspir-81 81 MG 1 tablet Orally Once a day Active Lisinopril 20 MG 1 tablet Orally Once a day Active [place] 3 1200 MG 2 capsule Orally Once [...] Problem Status W/U Status Risk Notes Problem [id number] Encounter for screening for malignant neoplasm of colon (Z12.11) Active confirmed Problem [id number] History of adenomatous polyp of colon (Z86.010) Active confirmed Problem [id number] Pre-procedural examination (Z01.818) Active confirmed Problem [id number] Encounter for long-term (current) aspirin use (Z79.82) Active confirmed Plan Of Treatment Pending Test Test Name Order Date GI BIOPSY 01/23/2019 Future Test Test Name Order Date COLONOSCOPY 08/27/2013 COLONOSCOPY 12/11/2018 Insurance Providers Payer Name Payer Address Payer Phone Subscriber Number Group Number Insured Name Patient Relationship to Insured Coverage Start Date Coverage End Date [employer] [address] [place] [address] [id number] EILEEN NOLASCO Self - patient is the insured Medical (General) History Medical History History ICD Code Screening colonoscopy 2007--1 small tubualr adenoma removed; colonoscopy in 11/2013--hyperplastic polyp only Diverticulosis Hypertension Hyperlipidemia NIDDM Kidney [id number] Dr. Fernandez Denies AR,Lung disease, CVA Surgical History Surgery Date(Month/Year) C-spine surgery x 2 in 2011 and 2017
--- OUTSIDE RECORDS SUMMARY | 2025-07-17 10:08 | XMS_ITS | Encounter Summary ---
Author Organization [facility] Address [address] [place] [address] Phone Care Team Providers Care Software Project Engineer Name Role Phone Nikhil Knutson MD Primary Care Provider [phone]- [phone] Reason for Visit * Reason Comments Med Refill Encounter Details Date Type Department Care Team (Late st Contact Info) Description 12/07/2023 Refill [facility] [address] [place] [phone] Ki Figueroa MD [address] [place] [phone] Renal disorder due to type 2 diabetes [...] (HCC) documented in this encounter Care Teams Software Project Engineer Relationship Specialty Start Date End Date Nikhil Knutson MD [address] [facility] [address] [address] [address] [place] [address] PCP - General 11/03/22 documented as of this encounter
--- OUTSIDE RECORDS SUMMARY | 2025-07-17 10:08 | XMS_ITS | Encounter Summary ---
Author Organization [facility] Address [address] [facility] [address] [place] [address] Phone Care Team Providers Care Family Nurse Name Role Phone Nikhil Knutson MD Primary Care Provider [phone]- [phone] Reason for Visit * Reason Comments Med Refill Encounter Details Date Type Department Care Team (Late st Contact Info) Description 02/09/2024 Refill [facility] [address] [place] [phone] Ki Figueroa MD [address] [facility] [address] [place] [phone] Hypertensive disorder Social History Tobacco Use Types [...] disorder documented in this encounter Care Teams Family Nurse Relationship Specialty Start Date End Date Nikhil Knutson MD [address] [place], [place] [phone] PCP - General 11/03/22 documented as of this encounter
--- OUTSIDE RECORDS SUMMARY | 2025-07-17 10:08 | XMS_ITS | Clinical Summary ---
Author Organization [facility] Address [address] [address] Care Team Providers Care Hebrew Teacher Name Role Phone Nikhil Knutson MD Primary Care Provider +1- [phone] Allergies No known active allergies Medications pravastatin [...] patient's age to complete this topic Insurance [facility] Medicare [facility] Care Teams Hebrew Teacher Relationship Specialty Start Date End Date Nikhil Knutson MD [address] [place] [address] PCP - General 11/03/22
== END 2025-07-17 09:45 | disposition home or self-care (01) ==
LOC: HO.HMCH 09:11
PROVIDERS: PCP Internal Medicine; Visit Provider Internal Medicine
DX: E11.22 Type 2 diabetes mellitus with diabetic chronic kidney disease (principal); N18.31 Chronic kidney disease, stage 3a; N18.32 Chronic kidney disease, stage 3b; R80.9 Proteinuria, unspecified; E78.00 Pure hypercholesterolemia, unspecified; I10 Essential (primary) hypertension; M51.369 Other intervertebral disc degeneration, lumbar region without mention of lumbar back pain or lower extremity pain; M50.20 Other cervical disc displacement, unspecified cervical region; E55.9 Vitamin D deficiency, unspecified; M10.00 Idiopathic gout, unspecified site

== ENCOUNTER → 2025-07-17 09:10 | Outpatient (BNVA) | payer MEDICARE, SELFPAY | PROVIDERS: PCP Internal Medicine; Visit Provider Internal Medicine | DX: I12.9 Hypertensive chronic kidney disease with stage 1 through stage 4 chronic kidney disease, or unspecified chronic kidney disease (principal); E11.22 Type 2 diabetes mellitus with diabetic chronic kidney disease; N18.31 Chronic kidney disease, stage 3a; R80.9 Proteinuria, unspecified; E78.00 Pure hypercholesterolemia, unspecified; M51.369 Other intervertebral disc degeneration, lumbar region without mention of lumbar back pain or lower extremity pain; M50.20 Other cervical disc displacement, unspecified cervical region; E55.9 Vitamin D deficiency, unspecified; M10.00 Idiopathic gout, unspecified site | CPT/HCPCS: 96127; 99212 ==

== ENCOUNTER 2025-08-10 06:09 | Outpatient (REF) | payer MEDICARE, SELFPAY ==
--- OUTSIDE RECORDS SUMMARY | 2025-08-10 06:12 | XMS_ITS | Encounter Summary ---
Author Organization [facility] Address [address] [facility] [[email or web address] [address] [place] [address] Phone Care Team Providers Care Gettering Operator Name Role Phone Nikhil Knutson MD Primary Care Provider +1- [phone] Reason for Visit * Reason Comments Med Refill Encounter Details Date Type Department Care Team (Late st Contact Info) Description 02/08/2024 Refill [facility] [address] [place] [phone] Ki Figueroa MD [address] [facility] [address] [place] [phone] Hypertensive disorder Social History Tobacco Use Types [...] disorder documented in this encounter Care Teams Gettering Operator Relationship Specialty Start Date End Date Nikhil Knutson MD [address] [place], [place] [phone] PCP - General 11/03/22 documented as of this encounter
--- OUTSIDE RECORDS SUMMARY | 2025-08-10 06:12 | XMS_ITS | Clinical Summary ---
Author Organization [facility] Address [address] [address] Care Team Providers Care Vice President Of Procurement Name Role Phone Nikhil Knutson MD Primary Care Provider [phone]- [phone] Allergies No known active allergies Medications pravastatin [...] patient's age to complete this topic Insurance [facility] Medicare [facility] Care Teams Vice President Of Procurement Relationship Specialty Start Date End Date Nikhil Knutson MD [address] [place] [address] PCP - General 11/03/22
--- OUTSIDE RECORDS SUMMARY | 2025-08-10 06:12 | XMS_ITS | Encounter Summary ---
Author Organization [facility] Address [address] [place] [address] Phone Care Team Providers Care Pulp Drier Firer Name Role Phone Nikhil Knutson MD Primary Care Provider +1- [phone] Reason for Visit * Reason Comments Med Refill Encounter Details Date Type Department Care Team (Late st Contact Info) Description 12/07/2023 Refill [facility] [address] [place] [phone] Ki Figueroa MD [address] [place] [phone] Renal disorder due to type 2 diabetes [...] disorder due to type 2 diabetes mellitus <Unspecified DM Medication; Diabetic nephropathy> (HCC) documented in this encounter Care Teams Pulp Drier Firer Relationship Specialty Start Date End Date Nikhil Knutson MD [address] [facility] [address] [place] [address] PCP - General 11/03/22 documented as of this encounter
--- OUTSIDE RECORDS SUMMARY | 2025-08-10 06:13 | XMS_ITS | Patient Health Record ---
Author Organization [facility] Address [address] [place] [address] Care Team Providers Care Assembly Machine Tender Name Role Phone Anel (RETIRED) Reggie [place] Primary Care Provide r Unavailable Tray Oneal Unavailable [phone] Reason For Referral No Information Medications Medication SIG (Take, Route, Frequency, Duration) Notes Start Date End Date Status Aspir-81 81 MG 1 tablet Orally Once a day Active Lisinopril 20 MG 1 tablet Orally Once a day Active [place] 3 1200 MG 2 capsule Orally Once [...] Problem Status W/U Status Risk Notes Problem [id number] Encounter for screening for malignant neoplasm of colon (Z12.11) Active confirmed Problem 924212904 History of adenomatous polyp of colon (Z86.010) Active confirmed Problem 553017236793935 Pre-procedural examination (Z01.818) Active confirmed Problem [id number] Encounter for long-term (current) aspirin use (Z79.82) Active confirmed Plan Of Treatment Pending Test Test Name Order Date GI BIOPSY 01/23/2019 Future Test Test Name Order Date COLONOSCOPY 08/27/2013 COLONOSCOPY 12/11/2018 Insurance Providers Payer Name Payer Address Payer Phone Subscriber Number Group Number Insured Name Patient Relationship to Insured Coverage Start Date Coverage End Date [employer] [address] [place] [address] [id number] EILEEN NOLASCO Self - patient is the insured Medical (General) History Medical History History ICD Code Screening colonoscopy 2007--1 small tubualr adenoma removed; colonoscopy in 11/2013--hyperplastic polyp only Diverticulosis Hypertension Hyperlipidemia NIDDM Kidney stcsnwp-vbarjnrcegb-dvos Dr. Fernandez Denies [place],Lung disease, CVA Surgical History Surgery Date(Month/Year) C-spine surgery x 2 in 2011 and 2017
--- OUTSIDE RECORDS SUMMARY | 2025-08-10 06:13 | XMS_ITS | Clinical Summary ---
Author Organization [facility] ity Address [address] [place] [address] Care Team Providers Care Safety Director Name Role Phone Reggie Tam DO Primary Care Provider [phone] Social History Tobacco Use Types Packs/Day Years [...] age to complete this topic Care Teams Safety Director Relationship Specialty Start Date End Date Reggie Tam DO [address] [place] [address] [place] [address] PCP - General Family Medicine 10/05/17
--- OUTSIDE RECORDS SUMMARY | 2025-08-10 06:13 | XMS_ITS | Encounter Summary ---
Author Organization [facility] Address [address] [facility] [address] [place] [address] Phone Care Team Providers Care Supervisor Machining Name Role Phone Nikhil Knutson MD Primary Care Provider [phone] Reason for Visit * Reason Comments Med Refill Encounter Details Date Type Department Care Team (Late st Contact Info) Description 02/09/2024 Refill [facility] [address] [place] [phone] Ki Figueroa MD [address] [facility] [address] [place] [phone] Hypertensive disorder Social History Tobacco Use Types [...] disorder documented in this encounter Care Teams Supervisor Machining Relationship Specialty Start Date End Date Nikhil Knutson MD [address] [place], [place] [id number] PCP - General 11/03/22 documented as of this encounter
[2025-08-10 08:00] LABS: Protein/Creatinine Ratio, Ur 0.45 (<0.2); Total Protein Urine Random 38 mg/dL (<12)
[2025-08-10 08:03] LABS: Anion Gap 10 (12-20); Blood Urea Nitrogen 29 mg/dL (9-16); Calcium 9.2 mg/dL (8.4-10.2); Carbon Dioxide 26 mmol/L (22-29); Chloride 107 mmol/L (96-108); Estimated Glomerular Filt Rate 43; Potassium 4.3 mmol/L (3.3-5.1); Sodium 139 mmol/L (135-145)
== END 2025-08-10 06:10 | disposition home or self-care (01) ==
LOC: HO.LAB 06:09
PROVIDERS: PCP Internal Medicine; Visit Provider Internal Medicine Nephrology
DX: I12.9 Hypertensive chronic kidney disease with stage 1 through stage 4 chronic kidney disease, or unspecified chronic kidney disease (principal); N18.32 Chronic kidney disease, stage 3b
CPT/HCPCS: 36415; 80051; 82310; 82565; 82570; 84156; 84520

== ENCOUNTER 2025-08-20 10:10 | Outpatient (AMB) | payer MEDICARE, SELFPAY ==
--- NOTE | 2025-08-20 10:19 | HO.NEPHOV_ITS ---
Vital Signs 08/20/25 10:22 Height 5 ft 6 in Weight 146 lb 8 oz BMI 23.6 BP 130/70 Blood Pressure Location Lt brachial Position Sitting Pulse 73 Pulse Source Pulse Oximeter Pulse Oximetry (%) 97 Oxygen Delivery Method Room Air Intake Visit Reasons: 3mnth w labs-Conf Retention Representative Required: No Accompanied by: Self / Same As Patient Allergies amlodipine Adverse Reaction (Intermediate, Verified 08/20/25 10:22) edema HPI Comments Details: Yrn was seen in follow up for management of his chronic kidney disease and hypertension. He has been a diabetic for over 10 years. He is known to have proteinuria. His blood pressure has been at goal. He does not have any edema. He has some prostatic symptoms. He has never had a renal biopsy. He denies any chest pain, shortness of breath, proximal nocturnal dyspnea, orthopnea, pedal edema, hematuria, epistaxis, photosensitivity, joint swellings, hematemesis, melena. He does not take any nonsteroidal anti-inflammatory medications. He hydrates himself very well. His serum creatinine has been stable after reducing the dose of lisinopril [facility] Medical History Bilateral cataracts Cervical disc herniation Chronic kidney disease (CKD), stage III (moderate) Vitamin D deficiency Gout Lumbar degenerative disc disease Benign essential hypertension Pure hypercholesterolemia Proteinuria, unspecified Type 2 diabetes mellitus with diabetic chronic kidney disease Surgical History History of right cataract surgery (12/15/24) History of extraction of renal calculus History of cervical discectomy History of laminectomy Family History Father No problems noted. Mother No problems noted. Brother Diabetes Brother Heart problem Social History Household Members: Spouse Housing: House Are you a primary daycare teacher to a significant other at home: No Do you presently have visiting nurse or other home services: No Alcohol intake: former Patient Tobacco Use Status: Former Tobacco user e-Cigarette/Vaping Use: Never Used Second Hand Smoke Exposure: Yes service: No Current occupational status: retired Cognitive needs: No Hearing needs: No Vision needs: No Review of Systems Const All systems reviewed & are unremarkable except as noted in HPI and below Physical Exam Const General: comfortable and no acute distress Orientation/consciousness: patient oriented x3 HEENT Head: Yes normocephalic Mouth: Normal oral and palatal mucosa present Eyes EOM: EOMs intact bilaterally Neck Neck: Yes supple Resp Auscultation: clear to auscultation bilaterally Cardio Jugular venous distension: no JVD Rate: regular rate GI Palpation (GI): Soft to palpation Auscultation: normal bowel sounds General: Yes no CVA tenderness Back/Spine/Pelvis Back: no CVA tenderness Skin General skin exam: no rashes or lesions noted Neuro General: patient oriented x3 and moves all extremities Extrem General: Yes no pedal edema Results Reviewed Nephrology Results: Hgb, (14.0-18.0) 16.0 g/dl 07/07/25 WBC, (4.8-10.8) 5.7 X10*3/uL 07/07/25 Plt Count, (160-400) 189 X10*3/uL 07/07/25 Sodium, (135-145) 139 mmol/L 08/10/25 Potassium, (3.3-5.1) 4.3 mmol/L 08/10/25 Chloride, (96-108) 107 mmol/L 08/10/25 Carbon Dioxide, (22-29) 26 mmol/L 08/10/25 BUN, (9-16) 29 mg/dL H 08/10/25 Creatinine, (0.5-1.4) 1.60 mg/dL H 08/10/25 Calcium, (8.4-10.2) 9.2 mg/dL 08/10/25 Urine Protein, (Neg-Trace) 100 (2+) mg/dL H 07/07/25 Urine Creatinine 84.50 mg/dL 08/10/25 Protein/Creatinin Ratio, (<0.2) 0.45 H 08/10/25 Assessment & Plan Assessment & Plan (1) Hypertension: Code(s): I10 - Essential (primary) hypertension Category: Medical Qualifiers: Hypertension type: primary hypertension Qualified Code(s): I10 - Essential (primary) hypertension (2) Type 2 diabetes mellitus with diabetic chronic kidney disease: Code(s): E11.22 - Type 2 diabetes mellitus with diabetic chronic kidney disease Category: Medical Qualifiers: Diabetes mellitus care home insulin use: without care home use Chronic kidney disease stage: stage 3 (moderate) Chronic kidney disease stage 3 subtype: stage 3a (GFR 45-59) Qualified Code(s): E11.22 - Type 2 diabetes mellitus with diabetic chronic kidney disease; N18.31 - Chronic kidney disease, stage 3a (3) Vitamin D deficiency: Code(s): E55.9 - Vitamin D deficiency, unspecified Category: Medical (4) Chronic kidney disease (CKD), stage III (moderate): Code(s): N18.30 - Chronic kidney disease, stage 3 unspecified Category: Medical Qualifiers: Chronic kidney disease stage 3 subtype: stage 3b (GFR 30-44) Qualified Code(s): N18.32 - Chronic kidney disease, stage 3b Qasim Pool 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 He has not had significant proteinuria. He is on BERT-inhibitor. He can continue lisinopril 10 mg daily given improvement in serum creatinine. His serum potassium is normal. His blood pressure is at goal. He hydrates himself well. He never had a renal biopsy. He should continue Jardiance 25 mg daily. He may need an alpha reyna if he has ongoing prostatic symptoms. He needs to keep his LDL low. I did not make any other medication changes today. All his questions were answered Orders: Orders Blood Urea Nitrogen 6 Months E11. - Type 2 diabetes mellitus with diabetic chronic kidney disease, E55.9 - Vitamin D deficiency, unspecified, I10 - Essential (primary) hypertension, N18.31 - Chronic kidney disease, stage 3a, N18.32 - Chronic kidney disease, stage 3b Electrolytes 6 Months E11.22 - Type 2 diabetes mellitus with diabetic chronic kidney disease, E55.9 - Vitamin D deficiency, unspecified, I10 - Essential (primary) hypertension, N18.31 - Chronic kidney disease, stage 3a, N18.32 - Chronic kidney disease, stage 3b Hemoglobin A1c 6 Months E11.22 - Type 2 diabetes mellitus with diabetic chronic kidney disease, E55.9 - Vitamin D deficiency, unspecified, I10 - Essential (primary) hypertension, N18.31 - Chronic kidney disease, stage 3a, N18.32 - Chronic kidney disease, stage 3b Creatinine 6 Months E11. - Type 2 diabetes mellitus with diabetic chronic kidney disease, E55.9 - Vitamin D deficiency, unspecified, I10 - Essential (primary) hypertension, N18.31 - Chronic kidney disease, stage 3a, N18.32 - Chronic kidney disease, stage 3b Coding Level of Care Code Est Pt Level 4 (26857) Diagnoses Primary hypertension I10 Hypertension type: primary hypertension Type 2 diabetes mellitus with stage 3a chronic kidney disease, without long-term current use of insulin E11.22; N18.31 Diabetes mellitus watermelon inspector insulin use: without watermelon inspector use Chronic kidney disease stage: stage 3 (moderate) Chronic kidney disease stage 3 subtype: stage 3a (GFR 45-59) Vitamin D deficiency E55.9 Stage 3b chronic kidney disease N18.32 Chronic kidney disease stage 3 subtype: stage 3b (GFR 30-44)
[2025-08-20 10:22] VITALS: BP 130/70; PULSE 73; O2SAT 97; BMI 23.6
--- OUTSIDE RECORDS SUMMARY | 2025-08-20 12:23 | XMS_ITS | Patient Health Record ---
Author Organization [facility] Address [address] [place] [address] Care Team Providers Care Network Systems Operator Name Role Phone Anel (RETIRED) Reggie [place] Primary Care Provide r Unavailable Tray Oneal Unavailable [phone] Reason For Referral No Information Medications Medication SIG (Take, Route, Frequency, Duration) Notes Start Date End Date Status Aspir-81 81 MG 1 tablet Orally Once a day Active Lisinopril 20 MG 1 tablet Orally Once a day Active [place] 3 1200 MG 2 capsule Orally Once [...] Problem Status W/U Status Risk Notes Problem Screening for malignant neoplasm of colon (248125473) Encounter for screening for malignant neoplasm of colon (Z12.11) Active confirmed Problem History of adenomatous polyp of colon (152900748) History of adenomatous polyp of colon (Z86.010) Active confirmed Problem Pre-procedure evaluation check (909677690) Pre-procedural examination (Z01.818) Active confirmed Problem Long-term current use of antiplatelet drug (715766300352149 ) Encounter for long-term (current) aspirin use (Z79.82) Active confirmed Plan Of Treatment Pending Test Test Name Order Date GI BIOPSY 01/23/2019 Future Test Test Name Order Date COLONOSCOPY 08/27/2013 COLONOSCOPY 12/11/2018 Insurance Providers Payer Name Payer Address Payer Phone Subscriber Number Group Number Insured Name Patient Relationship to Insured Coverage Start Date Coverage End Date [address] [place] [address] [id number] EILEEN CAPPS Self - patient is the insured Medical (General) History Medical History History ICD Code Screening colonoscopy 2007--1 small tubualr adenoma removed; colonoscopy in 11/2013--hyperplastic polyp only Diverticulosis Hypertension Hyperlipidemia NIDDM Kidney cbschse-wldgvigmsfx-jwte Dr. Fernandez Denies [place],Lung disease, CVA Surgical History Surgery Date(Month/Year) C-spine surgery x 2 in 2011 and 2017
--- OUTSIDE RECORDS SUMMARY | 2025-08-20 12:24 | XMS_ITS | Clinical Summary ---
Author Organization [facility] ity Address [address] [place] [address] Care Team Providers Care Etcher Electrolytic Name Role Phone Reggie Tam DO Primary [...] age to complete this topic Care Teams Etcher Electrolytic Relationship Specialty Start Date End Date Reggie Tam DO [address] [place] [address] [place] [address] PCP - General Family Medicine 10/05/17
== END 2025-08-20 10:49 | disposition home or self-care (01) ==
LOC: HO.HKAS 10:11
PROVIDERS: PCP Internal Medicine; Visit Provider Internal Medicine Nephrology
DX: I10 Essential (primary) hypertension (principal); E11.22 Type 2 diabetes mellitus with diabetic chronic kidney disease; N18.31 Chronic kidney disease, stage 3a; E55.9 Vitamin D deficiency, unspecified; N18.32 Chronic kidney disease, stage 3b
CPT/HCPCS: 99214

== ENCOUNTER → 2025-08-20 10:10 | Outpatient (BNVA) | payer MEDICARE, SELFPAY | PROVIDERS: PCP Internal Medicine; Visit Provider Internal Medicine Nephrology | DX: E11.22 Type 2 diabetes mellitus with diabetic chronic kidney disease (principal); I12.9 Hypertensive chronic kidney disease with stage 1 through stage 4 chronic kidney disease, or unspecified chronic kidney disease; N18.32 Chronic kidney disease, stage 3b; E55.9 Vitamin D deficiency, unspecified | CPT/HCPCS: 99212 ==